=== PATIENT | male | born 1945 | race Caucasian/White ===

== ENCOUNTER 2017-10-23 08:46 | Inpatient (IN) | payer MEDICARE, OTHER ==
[2017-10-23] MEDS ORDERED: IPRATROPIUM 0.5 MG/2.5 ML NEBU INHALATION STA (09:10)
[2017-10-23] MEDS ORDERED: SODIUM CHLORIDE 0.9% 500 ML IV STA (09:10)
[2017-10-23] MEDS ORDERED: methylPREDNISolone SOD SUCCI 125 MG/2 ML VIAL IV STA (09:10)
[2017-10-23] MEDS ORDERED: ALBUTEROL NEBULIZED 2.5 MG/3 ML INHALATION STA (09:10)
--- NOTE | 2017-10-23 09:15 | ED ---
General Adult HPI - General Chief complaint: Shortness of Breath Stated complaint: Palpitations-sent by Dr Ogden Time Seen by Provider: 10/23/17 08:50 Source: patient, RN notes reviewed Mode of arrival: wheelchair Limitations: no limitations - History of Present Illness Initial comments: This is a 71-year-old male who presents emergency Department complaining of difficulty breathing. Patient states his been ongoing for 8 months. Patient states he went to see his deputy director of nursing today and the deputy director of nursing became concerned because his heart was racing at about 120 beats a minute he was having a hard time breathing and he was having some shakes. Patient was then sent to the emergency department. Patient states his breathing didn't feel any worse than it has for the last 8 months. Patient denies having had a fever. Patient denies a cough or sputum production. Patient denies any chest pain or palpitations. Patient denies any abdominal pain patient denies nausea vomiting diarrhea. Patient denies any calf pain or tenderness. Patient denies any leg swelling. Patient denies being lightheaded dizzy or having any near syncopal episode. - Related Data Home Medications Medication Instructions Recorded Confirmed Albuterol Inhaler [Ventolin Hfa 2 puff INHALATION RT-Q6H PRN 10/23/17 10/23/17 Inhaler] Aspirin 81 mg PO DAILY 10/23/17 10/23/17 Budesonide-Formot 160-4.5 Mcg 2 puff INHALATION RT-BID 10/23/17 10/23/17 [Symbicort 160-4.5 Mcg Inhaler] Cyanocobalamin (Vitamin B-12) 1,000 mcg PO DAILY 10/23/17 10/23/17 [Vitamin B-12] Ipratropium-Albuterol Nebulize 3 ml INHALATION RT-QID 10/23/17 10/23/17 [Duoneb 0.5 mg-3 mg/3 ml Soln] Multivitamins, Thera [Multivitamin 1 tab PO DAILY 10/23/17 10/23/17 (formulary)] [place]-3 Fatty Acids/Fish Oil [Fish 1 cap PO DAILY 10/23/17 10/23/17 Oil 1,000 mg Softgel] predniSONE 10 mg PO DAILY 10/23/17 10/23/17 Allergies Allergy/AdvReac Type Severity Reaction Status Date / Time No Known Allergies Allergy Verified 10/23/17 09:52 Review of Systems ROS Statement: Those systems with pertinent positive or pertinent negative responses have been documented in the HPI. ROS Other: All systems not noted in ROS Statement are negative. Past Medical History Past Medical History: COPD Additional Past Medical History / Comment(s): stg 4 emphysema History of Any Multi-Drug Resistant Organisms: None Reported Past Surgical History: Appendectomy Past Psychological History: No Psychological Hx Reported Smoking Status: Former smoker Past Alcohol Use History: Daily Past Drug Use History: None Reported - Past Family History Father Family Medical History: No Reported History Additional Family Medical History / Comment(s): Father was healthy and lived to be 92 yrs old. Mother Family Medical History: Dementia Additional Family Medical History / Comment(s): Mother had depression. She of dementia in her 60s. General Exam - General Exam Comments Initial Comments: GENERAL: Patient is well-developed and well-nourished. Patient is nontoxic and well- hydrated and is in mild distress. ENT: Neck is soft and supple. No significant lymphadenopathy is noted. Oropharynx is clear. Moist mucous membranes. Neck has full range of motion without eliciting any pain. EYES: The sclera were anicteric and conjunctiva were pink and moist. Extraocular movements were intact and pupils were equal round and reactive to light. Eyelids were unremarkable. PULMONARY: Diffusely diminished airflow CARDIOVASCULAR: This is a regular rate and rhythm at about 120 beats a minute ABDOMEN: Soft and nontender with normal bowel sounds. No palpable organomegaly was noted. There is no palpable pulsatile mass. SKIN: Skin is clear with no lesions or rashes and otherwise unremarkable. NEUROLOGIC: Patient is alert and oriented x3. Cranial nerves II through XII are grossly intact. Motor and sensory are also intact. Normal speech, volume and content. Symmetrical smile. MUSCULOSKELETAL: Normal extremities with adequate strength and full range of motion. No lower extremity swelling or edema. No calf tenderness. LYMPHATICS: No significant lymphadenopathy is noted PSYCHIATRIC: Normal psychiatric evaluation. Limitations: no limitations Course Vital Signs 10/23/17 10/23/17 10/23/17 08:50 09:17 09:20 Temperature 97.4 F L 100.1 F H Pulse Rate 134 H 119 H Respiratory 28 H Rate Blood Pressure 182/84 O2 Sat by Pulse 90 L Oximetry 10/23/17 10/23/17 10/23/17 09:31 09:46 09:56 Temperature Pulse Rate 109 H 117 H 115 H Respiratory Rate Blood Pressure O2 Sat by Pulse Oximetry 10/23/17 10/23/17 10/23/17 10:03 11:29 12:39 Temperature 97.5 F L Pulse Rate 119 H 110 H 111 H Respiratory 18 16 22 Rate Blood Pressure 193/74 162/75 146/68 O2 Sat by Pulse 94 L 98 95 Oximetry Medical Decision Making - Medical Decision Making EKG shows sinus tachycardia with occasional PVC at 107 bpm MD interval 160 QRS is 72 QT interval 350 QTC is 467 per patient's EKG shows no ST segment elevation or depression or T wave abnormalities are noted. Chest x-ray showed no acute abnormality. EKG of the chest showed no PE no obvious infiltrate. Patient received 3 breathing treatments and steroids while in the emergency department and that improved his symptoms. I spoke with Dr. Kauffman he agreed to admit the patient admitted the patient wrote admitting orders. I continue breathing treatments and steroids on the floor. I consult the deputy director of nursing. - Lab Data Result diagrams: 10/23/17 09:04 10/23/17 09:04 Lab Results 10/23/17 10/23/17 10/23/17 Range/Units 09:04 09:04 09:04 WBC 11.1 H (3.8-10.6) k/uL RBC 3.67 L (4.30-5.90) m/uL Hgb 11.3 L (13.0-17.5) gm/dL Hct 35.9 L (39.0-53.0) % MCV 97.9 (80.0-100.0) fL MCH 30.8 (25.0-35.0) pg MCHC 31.5 (31.0-37.0) g/dL RDW 13.3 (11.5-15.5) % Plt Count 358 (150-450) k/uL Neutrophils % 83 % Lymphocytes % 7 % Monocytes % 8 % Eosinophils % 0 % Basophils % 0 % Neutrophils # 9.2 H (1.3-7.7) k/uL Lymphocytes # 0.8 L (1.0-4.8) k/uL Monocytes # 0.9 (0-1.0) k/uL Eosinophils # 0.0 (0-0.7) k/uL Basophils # 0.0 (0-0.2) k/uL Hypochromasia Slight PT (9.0-12.0) sec INR (<1.2) APTT (22.0-30.0) sec D-Dimer (<0.60) mg/L FEU Sodium 141 (137-145) mmol/L Potassium 4.7 (3.5-5.1) mmol/L Chloride 102 (98-107) mmol/L Carbon Dioxide 23 (22-30) mmol/L Anion Gap 16 mmol/L BUN 12 (9-20) mg/dL Creatinine 0.75 (0.66-1.25) mg/dL Est GFR (CKD-EPI)AfAm >90 (>60 ml/min/1.73 sqM) Est GFR (CKD-EPI)NonAf >90 (>60 ml/min/1.73 sqM) Glucose 84 (74-99) mg/dL Lactic Ac Sepsis Rflx Plasma Lactic Acid Ignacio (0.7-2.0) mmol/L Calcium 10.0 (8.4-10.2) mg/dL Magnesium 1.9 (1.6-2.3) mg/dL Total Bilirubin 0.3 (0.2-1.3) mg/dL AST 44 (17-59) U/L ALT 24 (21-72) U/L Alkaline Phosphatase 51 (38-126) U/L Total Creatine Kinase 75 (55-170) U/L CK-MB (CK-2) 4.1 H* (0.0-2.4) ng/mL CK-MB (CK-2) Rel Index 5.5 Troponin I 0.024 (0.000-0.034) ng/mL Total Protein 6.9 (6.3-8.2) g/dL Albumin 4.5 (3.5-5.0) g/dL Urine Color Urine Appearance (Clear) Urine pH (5.0-8.0) Ur Specific [place] (1.001-1.035) Urine Protein (Negative) Urine Glucose (UA) (Negative) Urine Ketones (Negative) Urine Blood (Negative) Urine Nitrite (Negative) Urine Bilirubin (Negative) Urine Urobilinogen (<2.0) mg/dL Ur Leukocyte Esterase (Negative) 04/20/18 04/20/18 04/20/18 Range/Units 09:04 09:04 09:51 WBC (3.8-10.6) k/uL RBC (4.30-5.90) m/uL Hgb (13.0-17.5) gm/dL Hct (39.0-53.0) % MCV (80.0-100.0) fL MCH (25.0-35.0) pg MCHC (31.0-37.0) g/dL RDW (11.5-15.5) % Plt Count (150-450) k/uL Neutrophils % % Lymphocytes % % Monocytes % % Eosinophils % % Basophils % % Neutrophils # (1.3-7.7) k/uL Lymphocytes # (1.0-4.8) k/uL Monocytes # (0-1.0) k/uL Eosinophils # (0-0.7) k/uL Basophils # (0-0.2) k/uL Hypochromasia PT 9.7 (9.0-12.0) sec INR 1.0 (<1.2) APTT 19.8 L (22.0-30.0) sec D-Dimer 3.11 H (<0.60) mg/L FEU Sodium (137-145) mmol/L Potassium (3.5-5.1) mmol/L Chloride (98-107) mmol/L Carbon Dioxide (22-30) mmol/L Anion Gap mmol/L BUN (9-20) mg/dL Creatinine (0.66-1.25) mg/dL Est GFR (CKD-EPI)AfAm (>60 ml/min/1.73 sqM) Est GFR (CKD-EPI)NonAf (>60 ml/min/1.73 sqM) Glucose (74-99) mg/dL Lactic Ac Sepsis Rflx Y Plasma Lactic Acid Ignacio 4.1 H* (0.7-2.0) mmol/L Calcium (8.4-10.2) mg/dL Magnesium (1.6-2.3) mg/dL Total Bilirubin (0.2-1.3) mg/dL AST (17-59) U/L ALT (21-72) U/L Alkaline Phosphatase (38-126) U/L Total Creatine Kinase (55-170) U/L CK-MB (CK-2) (0.0-2.4) ng/mL CK-MB (CK-2) Rel Index Troponin I (0.000-0.034) ng/mL Total Protein (6.3-8.2) g/dL Albumin (3.5-5.0) g/dL Urine Color Urine Appearance (Clear) Urine pH (5.0-8.0) Ur Specific [place] (1.001-1.035) Urine Protein (Negative) Urine Glucose (UA) (Negative) Urine Ketones (Negative) Urine Blood (Negative) Urine Nitrite (Negative) Urine Bilirubin (Negative) Urine Urobilinogen (<2.0) mg/dL Ur Leukocyte Esterase (Negative) 10/23/17 Range/Units 10:51 WBC (3.8-10.6) k/uL RBC (4.30-5.90) m/uL Hgb (13.0-17.5) gm/dL Hct (39.0-53.0) % MCV (80.0-100.0) fL MCH (25.0-35.0) pg MCHC (31.0-37.0) g/dL RDW (11.5-15.5) % Plt Count (150-450) k/uL Neutrophils % % Lymphocytes % % Monocytes % % Eosinophils % % Basophils % % Neutrophils # (1.3-7.7) k/uL Lymphocytes # (1.0-4.8) k/uL Monocytes # (0-1.0) k/uL Eosinophils # (0-0.7) k/uL Basophils # (0-0.2) k/uL Hypochromasia PT (9.0-12.0) sec INR (<1.2) APTT (22.0-30.0) sec D-Dimer (<0.60) mg/L FEU Sodium (137-145) mmol/L Potassium (3.5-5.1) mmol/L Chloride (98-107) mmol/L Carbon Dioxide (22-30) mmol/L Anion Gap mmol/L BUN (9-20) mg/dL Creatinine (0.66-1.25) mg/dL Est GFR (CKD-EPI)AfAm (>60 ml/min/1.73 sqM) Est GFR (CKD-EPI)NonAf (>60 ml/min/1.73 sqM) Glucose (74-99) mg/dL Lactic Ac Sepsis Rflx Plasma Lactic Acid Ignacio (0.7-2.0) mmol/L Calcium (8.4-10.2) mg/dL Magnesium (1.6-2.3) mg/dL Total Bilirubin (0.2-1.3) mg/dL AST (17-59) U/L ALT (21-72) U/L Alkaline Phosphatase (38-126) U/L Total Creatine Kinase (55-170) U/L CK-MB (CK-2) (0.0-2.4) ng/mL CK-MB (CK-2) Rel Index Troponin I (0.000-0.034) ng/mL Total Protein (6.3-8.2) g/dL Albumin (3.5-5.0) g/dL Urine Color Light Yellow Urine Appearance Clear (Clear) Urine pH 7.0 (5.0-8.0) Ur Specific [place] 1.024 (1.001-1.035) Urine Protein Negative (Negative) Urine Glucose (UA) Negative (Negative) Urine Ketones Negative (Negative) Urine Blood Negative (Negative) Urine Nitrite Negative (Negative) Urine Bilirubin Negative (Negative) Urine Urobilinogen <2.0 (<2.0) mg/dL Ur Leukocyte Esterase Negative (Negative) Critical Care Time Critical Care Time: Yes Total Critical Care Time: 35 Disposition Clinical Impression: COPD exacerbation, Tracheobronchitis Disposition: ADMITTED IP TO THIS HOSP Is patient prescribed a controlled substance at d/c from ED?: No Time of Disposition: 11:00
[2017-10-23 09:27] LABS: Basophils % (A) 0 %; Eosinophils % (A) 0 %; HCT 35.9 % (39.0-53.0); HGB 11.3 gm/dL (13.0-17.5); Hypochromasia Slight; Lymphocytes # (A) 0.8 k/uL (1.0-4.8); Lymphocytes % (A) 7 %; MCH 30.8 pg (25.0-35.0); MCHC 31.5 g/dL (31.0-37.0); MCV 97.9 fL (80.0-100.0); Mean Platelet Volume 7.4; Monocytes # (A) 0.9 k/uL (0-1.0); Monocytes % (A) 8 %; Neutrophils # (A) 9.2 k/uL (1.3-7.7); Neutrophils % (A) 83 %; Platelet Count 358 k/uL (150-450); RBC 3.67 m/uL (4.30-5.90); RDW 13.3 % (11.5-15.5); WBC 11.1 k/uL (3.8-10.6)
[2017-10-23 09:35] LABS: ALT 24 U/L (21-72); AST 44 U/L (17-59); Albumin 4.5 g/dL (3.5-5.0); Alkaline Phosphatase 51 U/L (38-126); Anion Gap 16 mmol/L; Blood Urea Nitrogen 12 mg/dL (9-20); Carbon Dioxide 23 mmol/L (22-30); Chloride 102 mmol/L (98-107); Glucose 84 mg/dL (74-99); Magnesium 1.9 mg/dL (1.6-2.3); Potassium 4.7 mmol/L (3.5-5.1); Sodium 141 mmol/L (137-145); Total Bilirubin 0.3 mg/dL (0.2-1.3); Total Protein 6.9 g/dL (6.3-8.2)
--- NOTE | 2017-10-23 09:40 | XR ---
EXAMINATION TYPE: XR chest 1V portable DATE OF EXAM: 10/23/2017 COMPARISON: Chest x-ray February 12, 2017. HISTORY: History of COPD with difficulty in breathing. TECHNIQUE: Single frontal view of the chest is obtained. FINDINGS: There is background chronic emphysematous change with scattered areas of peripheral fibros is but no new suspicious focal air space opacity, pleural effusion, or pneumothorax seen. The cardia c silhouette size is within normal limits with atherosclerotic change in the aortic knob. The osseo us structures remain demineralized. IMPRESSION: Chronic emphysematous change without acute pulmonary process.
[2017-10-23 09:46] LABS: Prothrombin Time 9.7 sec (9.0-12.0)
[2017-10-23 09:52] LABS: D-Dimer 3.11 mg/L FEU (<0.60); Partial Thromboplastin Time 19.8 sec (22.0-30.0)
[2017-10-23] MEDS ORDERED: RX INFO: IV CONTRAST WAS GIVEN 1 EACH MISC MISCELLANE PRN (10:01)
[2017-10-23 10:04] LABS: Troponin I 0.024 ng/mL (0.000-0.034)
[2017-10-23 10:10] LABS: Creatine Kinase MB 4.1 ng/mL (0.0-2.4)
--- NOTE | 2017-10-23 10:39 | CT ---
EXAMINATION TYPE: CT chest angio for PE DATE OF EXAM: 10/23/2017 COMPARISON: NONE HISTORY: Patient complains of palpitations, shakiness, and difficulty breathing. CT DLP: 127.3 mGycm CONTRAST: CT chest with contrast and 3D reconstruction with MIP imaging is performed with IV Contrast, patient injected with 100 mL of Isovue 370. Contrast-enhanced CT of the chest was performed through the course of the pulmonary arteries with davey g and mediastinal window settings submitted. 3D reconstruction with MIP imaging was also performed. PULMONARY ARTERIES: The pulmonary arteries and their major tributaries are patent. I do not see stephani dence for sizable filling defect to suggest pulmonary embolic process. LUNGS: Moderate emphysematous changes seen. Pleural-based nodular density right upper lobe medially m easures 9.3 mm. Scattered areas of linear parenchymal scar. Hyperinflation compatible with COPD. MEDIASTINUM: Thoracic aorta is of normal caliber,however, evaluation is limited given timing of the contrast bolus. If there is concern for thoracic aortic pathology consider ARIANA. Correlate clinicall y . The heart is not enlarged. No evidence for mediastinal mass. No mediastinal lymph nodes greater than 1cm. HILAR STRUCTURES: No evidence for mass. No hilar lymph nodes greater than 1 cm. UPPER ABDOMEN: No significant abnormality is seen. IMPRESSION: 1. No evidence for Pulmonary embolism at this time. 2. Pleural-based nodular density right upper lobe medially is nonspecific. Follow-up study is recomme nded in 3-4 months. 3. Moderate emphysematous changes and hyperinflation compatible with COPD
[2017-10-23] MEDS ORDERED: IPRATROPIUM-ALBUTEROL 3 ML NEB INHALATION PRN (11:00)
[2017-10-23] MEDS ORDERED: LEVOFLOXACIN 750MG-D5W PMX 750 MG in DEXTROSE/WATER 1 150ML.BAG IVPB STA (11:06)
[2017-10-23 11:09] LABS: Appearance,Urine Clear (Clear); Bilirubin,Urine Negative (Negative); Blood,Urine Negative (Negative); Color,Urine Light Yellow; Glucose,Urine (UA) Negative (Negative); Ketones,Urine Negative (Negative); Leukocyte Esterase,Urine Negative (Negative); Nitrite,Urine Negative (Negative); Protein,Urine Negative (Negative); Specific Gravity,Urine 1.024 (1.001-1.035); Urobilinogen,Urine <2.0 mg/dL (<2.0)
--- NOTE | 2017-10-23 14:36 | P.CNPUL ---
History of Present Illness Consult date: 10/23/17 Reason for consult: dyspnea, COPD History of present illness: 71-year-old male patient with advanced COPD with a baseline FEV1 of 24% of predicted, and a total lung capacity of 127% of predicted and diffusion capacity of 23% of predicted consistent with severe advanced COPD. The patient has been followed up in our office. The patient has been maintained on Symbicort as maintenance in addition to her maintenance prednisone of 10 mg on a daily basis and oxygen 2 L/m 24 7. The patient has a portable concentrator. The patient came into the office today to be seen by Dr. Ogden. He was feeling progressively more short of breath and he was very tremulous and weak and he was having increased cough and some low-grade fever. He was having difficulty breathing and he was unable to speak full sentences. Immediately was transferred to the emergency department. D-dimer was slightly elevated and a CT angios the chest came back negative for any pulmonary embolism. There is a scar in the right apical area which needs to be monitored. Otherwise there is diffuse emphysema with upper lobe predominance and there is no mediastinal lymphadenopathy. The patient had a lactic acid level of 4.1. Cardiac and is a been negative. Influenza screen was negative. White cell count is not elevated. He was admitted for an acute COPD exacerbation treatment. He is known to have hemochromatosis. This is his first hospitalization for COPD complications. No edema in lower extremities. No history of cardiac disease or congestion heart failure Review of Systems Constitutional: Reports fatigue, Reports lethargy, Reports poor appetite, Reports weakness, Reports weight loss Eyes: denies blurred vision, denies bulging eye, denies decreased vision Ears: deny: decreased hearing, ear discharge, earache Ears, nose, mouth and throat: Denies headache, Denies sore throat Cardiovascular: Reports decreased exercise tolerance, Reports dyspnea on exertion, Reports rapid heart beat, Reports shortness of breath Respiratory: Reports cough, Reports cough with sputum, Reports dyspnea, Reports wheezing Gastrointestinal: Denies abdominal pain, Denies diarrhea, Denies nausea, Denies vomiting Genitourinary: Reports as per HPI Musculoskeletal: Denies myalgias Musculoskeletal: absent: ankle pain, ankle stiffness, ankle swelling Integumentary: Denies pruritus, Denies rash Neurological: Denies numbness, Denies weakness Psychiatric: Reports as per HPI, Reports sleep disturbances Endocrine: Reports fatigue, Reports weight change Past Medical History Past Medical History: Blood Disorder, COPD Additional Past Medical History / Comment(s): Advanced emphysema details discussed above, chronic hypoxic history failure, hemochromatosis and the patient has been followed up by Dr. Patel and the patient has undergone periodic phlebotomy. History of Any Multi-Drug Resistant Organisms: None Reported Past Surgical History: Appendectomy Past Anesthesia/Blood Transfusion Reactions: No Reported Reaction Smoking Status: Former smoker (The patient quit smoking approximately 9 months ago. He has more than [id number] smoking history. No alcoholism or no substance abuse.) - Past Family History Father Family Medical History: No Reported History Additional Family Medical History / Comment(s): Father was healthy and lived to be 92 yrs old. Mother Family Medical History: Dementia Additional Family Medical History / Comment(s): Mother had depression. She of dementia in her 60s. Medications and Allergies Home Medications Medication Instructions Recorded Confirmed Type Albuterol Inhaler [Ventolin Hfa 2 puff INHALATION RT-Q6H PRN 10/23/17 10/23/17 History Inhaler] Aspirin 81 mg PO DAILY 10/23/17 10/23/17 History Budesonide-Formot 160-4.5 Mcg 2 puff INHALATION RT-BID 10/23/17 10/23/17 History [Symbicort 160-4.5 Mcg Inhaler] Cyanocobalamin (Vitamin B-12) 1,000 mcg PO DAILY 10/23/17 10/23/17 History [Vitamin B-12] Ipratropium-Albuterol Nebulize 3 ml INHALATION RT-QID 10/23/17 10/23/17 History [Duoneb 0.5 mg-3 mg/3 ml Soln] Multivitamins, Thera [Multivitamin 1 tab PO DAILY 10/23/17 10/23/17 History (formulary)] [place]-3 Fatty Acids/Fish Oil [Fish 1 cap PO DAILY 10/23/17 10/23/17 History Oil 1,000 mg Softgel] predniSONE 10 mg PO DAILY 10/23/17 10/23/17 History Allergies Allergy/AdvReac Type Severity Reaction Status Date / Time No Known Allergies Allergy Verified 10/23/17 09:52 Physical Exam Vitals: Vital Signs Temp Pulse Resp BP Pulse Ox 10/23/17 13:31 22 10/23/17 13:22 98.7 F 10/23/17 12:39 97.5 F L 111 H 22 146/68 95 10/23/17 11:29 110 H 16 162/75 98 10/23/17 10:03 119 H 18 193/74 94 L 10/23/17 09:56 115 H 10/23/17 09:46 117 H 10/23/17 09:31 109 H 10/23/17 09:20 100.1 F H 10/23/17 09:17 119 H 10/23/17 08:50 97.4 F L 134 H 28 H 182/84 90 L Intake and Output 10/22/17 10/23/17 10/23/17 22:59 06:59 14:59 Other: Voiding Method Urinal Weight 48.081 kg The patient is a mild degree of respiratory distress even at rest. Looks to be very thin and cachectic with a BMI of 17.1. HEENT examination is grossly unremarkable. Mucous membranes are moist. No oral lesions. TMs and EACs are normal. Neck supple. Full range of motion. No adenopathy or thyromegaly. Cardiovascular examination reveals regular rhythm rate. S1-S2 normal. No S3-S4. No distinct murmur. Lungs reveal mostly diminished breath sounds. A few scattered mild rhonchi. There is diffuse extremity wheezes throughout the lung his bilaterally along with prolongation of expiratory phase of breathing. He has a barrel chest. No use of accessory muscles of breathing. Abdomen soft bowel sounds are heard. No masses or tenderness. Extremities are intact. No cyanosis clubbing. No edema. Skin without rash.Examination of the skin revealed no evidence of significant rashes, suspicious appearing nevi or other concerning lesions. Neurologic examination is nonfocal. The patient is awake and alert Results - Laboratory Findings CBC and BMP: 10/23/17 09:04 10/23/17 09:04 PT/INR, D-dimer PT 9.7 sec (9.0-12.0) 10/23/17 09:04 INR 1.0 (<1.2) 10/23/17 09:04 D-Dimer 3.11 mg/L FEU (<0.60) H 10/23/17 09:04 Abnormal lab findings: Abnormal Labs 10/23/17 10/23/17 10/23/17 09:04 09:04 09:04 WBC 11.1 H RBC 3.67 L Hgb 11.3 L Hct 35.9 L Neutrophils # 9.2 H Lymphocytes # 0.8 L APTT 19.8 L D-Dimer 3.11 H Plasma Lactic Acid Ignacio CK-MB (CK-2) 4.1 H* 10/23/17 09:04 WBC RBC Hgb Hct Neutrophils # Lymphocytes # APTT D-Dimer Plasma Lactic Acid Ignacio 4.1 H* CK-MB (CK-2) - Diagnostic Findings Chest x-ray: image reviewed CT scan - chest: image reviewed Assessment and Plan Plan: Assessment 1 acute exacerbation of COPD, with secondary shortness of breath. 2 severe COPD, steroid-dependent and patient has been taking 10 mg of prednisone on outpatient basis as maintenance 3 chronic hypoxic respiratory failure maintained on 2 L of oxygen by nasal cannula 4 cachexia with significant loss in total body muscle and fat mass and his current BMI 17.1 5 hemochromatosis 6 mild lactic acidosis 7 elevated d-dimer with a negative CT angios for pulmonary embolism. 8 limited scar in the right upper lobe, malignancy is doubtful Plan Influenza screen has been negative and the patient is currently afebrile for now. Monitor the fever pattern. We'll give this patient empiric antibiotic coverage with Levaquin. The patient will be placed on IV Solu-Medrol. The patient will be placed on DuoNeb nebulized treatments around the clock. The patient will be given heparin subcu for DVT prophylaxis. No need for BiPAP therapy at this point. Patient is an ex-smoker for now. Anticipate recovery within next 24-48 hours. Long-term prognosis poor based on presence of advanced COPD.
[2017-10-23] MEDS: methylPREDNISolone SOD SUCCI 125 MG/2 ML VIAL IV SCH ×3 (14:46→23:14)
[2017-10-23 15:38] VITALS: BMI 17.1
[2017-10-23] MEDS ORDERED: HEPARIN SODIUM,PORCINE 5,000 UNIT/ML 1 ML VIAL SQ SCH (16:00)
[2017-10-23] MEDS ORDERED: LORazepam 2 MG/ML INJ IV PRN ×3 (19:10)
[2017-10-23] MEDS: THIAMINE 100 MG TAB PO SCH (19:15)
[2017-10-23 20:51] LABS: Glucose,Whole Blood 210 mg/dL (75-99)
[2017-10-23] MEDS: INSULIN ASPART 100 UNIT/ML 1 ML 10 ML VIAL SQ SCH (21:34)
--- NOTE | 2017-10-23 23:14 | HP ---
HISTORY AND PHYSICAL DATE OF ADMISSION: 10/23/2017. DATE OF SERVICE: 10/23/2017 PRESENTING COMPLAINT: Short of breath. HISTORY OF PRESENTING COMPLAINT: This is a 71-year-old patient of Dr. Hidalgo and follows with release coordinator Dr. Ogden. Also has a history of COPD on home oxygen 2L. The patient has been short of breath for quite a while, but progressively getting more and more short of breath, wheezing, some cough, no edema, decreased appetite, tired, run down and runs a bit thin, admitted from Dr. Ogden's office for COPD exacerbation. No obvious fever. No sputum production, per se. REVIEW OF SYSTEMS: CONSTITUTIONAL: Weak, tired. HEENT: None. RESPIRATORY: As above. CARDIOVASCULAR: None. GASTROINTESTINAL: None. GENITOURINARY: None. MUSCULOSKELETAL: Wasting muscles. DERMATOLOGICAL: None. HEMATOLOGIC: None. LYMPHATIC: None. PSYCHIATRY: None. NEUROLOGICAL: None. PAST MEDICAL HISTORY: COPD on home oxygen. PAST SURGICAL HISTORY: Appendectomy. SOCIAL HISTORY: . Home oxygen 2L. Smoked for close to 63 years, stopped about 8 months ago. Drinks a vodka, beer, around 4-5 drinks a day. FAMILY HISTORY: Unremarkable. HOME MEDICATIONS: 1. Fish oil 1 capsule p.o. daily. 2. Multivitamin 1 tablet p.o. daily. 3. DuoNeb q.i.d. 4. Vitamin B12 1000 mcg a day. 5. Aspirin 81 mg a day. 6. Prednisone 10 mg a day. 7. Symbicort 160/4.5, 2 puffs b.i.d. 8. Ventolin HFA 2 puffs every 6 hours p.r.n. ALLERGIES: None. EXAMINATION: Temperature 97.2, pulse 115 respirations 28, blood pressure 156/82, pulse ox 95% on 3L. GENERAL APPEARANCE: Thin built, BMI 13.4, sitting up, tired appearing. EYES: Pupils equal. Conjunctivae normal. HEENT: External appearance of nose and ears normal. Oral cavity normal. NECK: JVD not raised. Mass not palpable. RESPIRATORY: Effort increased. LUNGS: Diminished breath sounds. Prolonged expiration. CARDIOVASCULAR: First and second sounds normal. No edema. ABDOMEN: Soft, nontender. Liver and spleen not palpable. LYMPHATIC: No lymph node palpable in neck or axillae. PSYCHIATRY: Alert and oriented x3. Mood and affect normal. MUSCULOSKELETAL: Diffuse wasting of the muscles. INVESTIGATIONS: White count 11.1, hemoglobin 11.3. Potassium 4.7, BUN and creatinine are normal. Influenza A and B negative. Chest x-ray: Hyperinflated, possibly from scar tissue. ASSESSMENT: 1. Acute severe chronic obstructive pulmonary disease exacerbation. The patient is steroid dependent. 2. Chronic hypoxic respiratory failure on home oxygen 2L from underlying chronic obstructive pulmonary disease. 3. Acute hypoxic respiratory failure. 4. Moderate protein-calorie malnutrition. The patient has bony prominences, muscle wasting. PLAN: Patient is put on nebulized bronchodilators, inhaled steroids and some Levaquin. Care was discussed with the patient. MMODL / IJN: [id number] /
[2017-10-23] MEDS: BUDESONIDE 1 MG/2 ML NEBU INHALATION SCH (23:41)
[2017-10-23] MEDS: IPRATROPIUM-ALBUTEROL 3 ML NEB INHALATION SCH ×2 (23:41→23:44)
[2017-10-24 01:09] LABS: Hemoglobin A1C 5.4 % (4.0-6.0)
[2017-10-24] MEDS: IPRATROPIUM-ALBUTEROL 3 ML NEB INHALATION SCH ×6 (03:42→23:47)
[2017-10-24] MEDS: methylPREDNISolone SOD SUCCI 125 MG/2 ML VIAL IV SCH ×2 (05:48→11:24)
[2017-10-24 07:21] LABS: Glucose,Whole Blood 130 mg/dL (75-99)
[2017-10-24] MEDS: INSULIN ASPART 100 UNIT/ML 1 ML 10 ML VIAL SQ SCH ×4 (07:22→22:06)
[2017-10-24] MEDS: ENOXAPARIN 40 MG/0.4 ML SYRINGE SQ SCH (08:34)
[2017-10-24] MEDS: BUDESONIDE 1 MG/2 ML NEBU INHALATION SCH ×2 (08:45→20:06)
[2017-10-24 11:09] LABS: Glucose,Whole Blood 180 mg/dL (75-99)
[2017-10-24] MEDS: THIAMINE 100 MG TAB PO SCH ×2 (11:24→16:11)
[2017-10-24] MEDS ORDERED: LEVOFLOXACIN 750MG-D5W PMX 750 MG in DEXTROSE/WATER 1 150ML.BAG IVPB SCH (12:00)
--- NOTE | 2017-10-24 14:59 | P.PN ---
Subjective Progress Note Date: 10/24/17 Principal diagnosis: Acute exacerbation of chronic obstructive pulmonary disease 71-year-old male patient with advanced COPD with a baseline FEV1 of 24% of predicted, and a total lung capacity of 127% of predicted and diffusion capacity of 23% of predicted consistent with severe advanced COPD. The patient has been followed up in our office. The patient has been maintained on Symbicort as maintenance in addition to her maintenance prednisone of 10 mg on a daily basis and oxygen 2 L/m 24 7. The patient has a portable concentrator. The patient came into the office today to be seen by Dr. Ogden. He was feeling progressively more short of breath and he was very tremulous and weak and he was having increased cough and some low-grade fever. He was having difficulty breathing and he was unable to speak full sentences. Immediately was transferred to the emergency department. D-dimer was slightly elevated and a CT angios the chest came back negative for any pulmonary embolism. There is a scar in the right apical area which needs to be monitored. Otherwise there is diffuse emphysema with upper lobe predominance and there is no mediastinal lymphadenopathy. The patient had a lactic acid level of 4.1. Cardiac and is a been negative. Influenza screen was negative. White cell count is not elevated. He was admitted for an acute COPD exacerbation treatment. He is known to have hemochromatosis. This is his first hospitalization for COPD complications. No edema in lower extremities. No history of cardiac disease or congestion heart failure The patient is seen again today 10/24/2017 in follow-up on the regular medical floor. He is awake and alert in no acute distress. He is breathing easier today as compared to yesterday but still not quite back to his baseline. He remains quite tremorous and weak. Appetite is poor. He has been maintaining good O2 saturations in the mid 90s on 2 L/m per nasal cannula. She's been afebrile. Slightly tachycardic. Slightly tachypneic. The cultures reveal no growth to date. He is continued on bronchodilators and IV Solu-Medrol. Objective - Vital Signs Vital signs: Vital Signs Temp 96.5 F L 10/24/17 14:35 Pulse 118 H 10/24/17 14:35 Resp 24 10/24/17 14:35 BP 146/77 10/24/17 14:35 Pulse Ox 96 04/21/18 14:35 Intake & Output 10/23/17 10/24/17 10/24/17 18:59 06:59 18:59 Intake Total 250 Output Total 400 Balance -150 Weight 48.081 kg 48.081 kg Intake: Oral 250 Output: Urine 400 Other: Voiding Method Urinal Urinal # Voids 1 1 2 - Exam The patient is a mild degree of respiratory distress even at rest. Looks to be very thin and cachectic with a BMI of 17.1. HEENT examination is grossly unremarkable. Mucous membranes are moist. No oral lesions. TMs and EACs are normal. Neck supple. Full range of motion. No adenopathy or thyromegaly. Cardiovascular examination reveals regular rhythm rate. S1-S2 normal. No S3-S4. No distinct murmur. Lungs reveal mostly diminished breath sounds. A few scattered mild rhonchi. There is diffuse extremity wheezes throughout the lung his bilaterally along with prolongation of expiratory phase of breathing. He has a barrel chest. No use of accessory muscles of breathing. Abdomen soft bowel sounds are heard. No masses or tenderness. Extremities are intact. No cyanosis clubbing. No edema. Skin without rash.Examination of the skin revealed no evidence of significant rashes, suspicious appearing nevi or other concerning lesions. Neurologic examination is nonfocal. The patient is awake and alert - Labs CBC & Chem 7: 10/23/17 09:04 10/23/17 09:04 Labs: Abnormal Lab Results - Last 24 Hours (Table) 10/23/17 10/24/17 10/24/17 Range/Units 20:44 07:11 11:04 POC Glucose (mg/dL) 210 H 130 H 180 H (75-99) mg/dL Microbiology - Last 24 Hours (Table) 10/23/17 09:04 Blood Culture - Preliminary Blood No Growth after 24 hours Assessment and Plan Assessment: Impression: #1 Acute hypoxic respiratory failure secondary to an acute exacerbation of chronic obstructive pulmonary disease. #2 Severe oxygen dependent, steroid dependent chronic obstructive pulmonary disease Gold stage IV with FEV1 value 23% of predicted. #3 Anorexia/cachexia syndrome with significant total body muscle and Mass loss current BMI 17.1. #4 Hemachromatosis. #5 Limited scar in the right upper lobe, malignancy is doubtful. #6 Elevated d-dimer. Computed tomography scan was negative for pulmonary embolism. Plan: The patient was seen and evaluated by Dr. Wilson. The patient is improved today as compared to yesterday. We'll continue his current treatment plan. We will increase his activity as tolerated. We'll continue to follow and make further recommendations based on his clinical status. I, the cosigning physician, performed a history & physical examination of the patient. Lungs sounds with bilateral wheezing, few scattered rhonchi, diminished. Maintaining good O2 saturations in the 90s on liters per minute per nasal cannula. I discussed the assessment and plan of care with my nurse practitioner, Clarisa Hammond. I attest to the above note as dictated by her.
[2017-10-24] MEDS: ASPIRIN 81 MG PO SCH (16:11)
[2017-10-24] MEDS: MULTIVITAMINS, THERA 1 EACH TAB PO SCH (16:11)
[2017-10-24] MEDS: CYANOCOBALAMIN 500 MCG TAB PO SCH (16:11)
--- NOTE | 2017-10-24 16:41 | PN ---
PROGRESS NOTE DATE OF SERVICE: 10/24/17. PRESENTING COMPLAINT: Short of breath. INTERVAL HISTORY: Patient admitted with COPD exacerbation. No sputum production. Breathing is better. Some wheezing is present. Did tolerate a diet. Sitting at the edge of the bed. REVIEW OF SYSTEMS: Done for constitutional, cardiovascular, GI, pulmonary; relevant findings as above. CURRENT MEDICATIONS: Reviewed include DuoNeb, IV Solu-Medrol. PHYSICAL EXAMINATION: Temperature 96.5, pulse 118, respiratory 24, blood pressure 140/77, pulse ox 96% on 3 L. GENERAL APPEARANCE: Sitting on the edge of bed, tired. EYES: Pupils equal. Conjunctivae normal. HEENT: External appearance of nose and ears normal. Oral cavity normal. NECK: JVD not raised. Mass not palpable. RESPIRATORY: Effort increased. Lungs decreased breath sounds. Prolonged expiration. CARDIOVASCULAR: First and second sounds, no edema. ABDOMEN: Soft, nontender. Liver and spleen not palpable. PSYCHIATRY: Alert and oriented x3. Mood and affect slightly anxious-appearing. INVESTIGATIONS: Accu-Cheks are noted. Influenza A and B negative. ASSESSMENT: 1. Acute severe chronic obstructive pulmonary disease exacerbation, steroid dependent. 2. Chronic hypoxic respiratory failure on home oxygen 2 L from underlying chronic obstructive pulmonary disease. 3. Acute hypoxic respiratory failure. 4. Moderate protein-calorie malnutrition. PLAN: Continue current medication and treatment plan. Will cut back on the steroids. MMODL / IJN: [id number] /
[2017-10-24 17:27] LABS: Glucose,Whole Blood 187 mg/dL (75-99)
[2017-10-24] MEDS: SYMBICORT 160-4.5 MCG INHALER INHALATION SCH (20:07)
[2017-10-24 21:28] LABS: Glucose,Whole Blood 179 mg/dL (75-99)
[2017-10-24] MEDS: methylPREDNISolone SOD SUCCI 40 MG/ML 1 ML VIAL IV SCH (22:06)
[2017-10-25] MEDS: IPRATROPIUM-ALBUTEROL 3 ML NEB INHALATION SCH ×3 (03:49→11:58)
[2017-10-25] MEDS: methylPREDNISolone SOD SUCCI 40 MG/ML 1 ML VIAL IV SCH ×2 (04:29→12:38)
[2017-10-25 06:11] VITALS: BP 138/71; RESP 20; TEMP 98.3
[2017-10-25] MEDS: ENOXAPARIN 40 MG/0.4 ML SYRINGE SQ SCH (07:15)
[2017-10-25] MEDS: CYANOCOBALAMIN 500 MCG TAB PO SCH (07:15)
[2017-10-25] MEDS: ASPIRIN 81 MG PO SCH (07:15)
[2017-10-25 07:38] LABS: Glucose,Whole Blood 138 mg/dL (75-99)
[2017-10-25] MEDS: INSULIN ASPART 100 UNIT/ML 1 ML 10 ML VIAL SQ SCH ×2 (08:12→12:38)
[2017-10-25] MEDS: SYMBICORT 160-4.5 MCG INHALER INHALATION SCH (08:31)
[2017-10-25 08:45] VITALS: PULSE 104
[2017-10-25] MEDS: BUDESONIDE 1 MG/2 ML NEBU INHALATION SCH (10:57)
[2017-10-25] MEDS ORDERED: LEVOFLOXACIN 750 MG TAB PO SCH ×2 (12:00→13:13)
[2017-10-25 12:30] LABS: Glucose,Whole Blood 158 mg/dL (75-99)
[2017-10-25] MEDS: THIAMINE 100 MG TAB PO SCH (12:38)
[2017-10-25] MEDS: MULTIVITAMINS, THERA 1 EACH TAB PO SCH (12:38)
--- NOTE | 2017-10-25 14:52 | P.PN ---
Subjective Progress Note Date: 10/25/17 On today's evaluation, the patient is looking well and he is not having any major stroke difficulties anything is back to his baseline symptoms of COPD exacerbation. No tremors. No altered mentation is no chest pain. No cough or sputum production. He received a combination of bronchodilators and steroids and he is very much optimize for now. I think is related to discharge home to be followed up on outpatient basis and he would need a prednisone burst taper. Objective - Vital Signs Vital signs: Vital Signs Temp 98.3 F 10/25/17 05:45 Pulse 104 H 10/25/17 08:44 Resp 20 10/25/17 05:45 BP 138/71 10/25/17 05:45 Pulse Ox 95 10/25/17 05:45 Intake & Output 10/24/17 10/25/17 10/25/17 18:59 06:59 18:59 Intake Total 240 Output Total 1400 Balance -1400 240 Weight 48.081 kg Intake: Oral 240 Output: Urine 1400 Other: Voiding Method Urinal # Voids 2 - Exam Gen. appearance, comfortable cachectic weak Head exam was generally normal. There was no scleral icterus or corneal arcus. Mucous membranes were moist. Neck was supple and without jugular venous distension, thyromegaly, or carotid bruits. Carotids were easily palpable bilaterally. There was no adenopathy. Lungs sounds are diminished and the patient has a barrel chest with marked diminished breath sounds and diffuse expiratory wheezes throughout the lung his bilaterally Cardiac exam revealed the PMI to be normally situated and sized. The rhythm was regular and no extrasystoles were noted during several minutes of auscultation. The first and second heart sounds were normal and physiologic splitting of the second heart sound was noted. There were no murmurs, rubs, clicks, or gallops., Overall heart sounds are distant Abdominal exam revealed normal bowel sounds. The abdomen was soft, non-tender, and without masses, organomegaly, or appreciable enlargement of the abdominal aorta. Examination of the extremities revealed easily palpable radial, femoral and pedal pulses. There was no cyanosis, clubbing or edema. Examination of the skin revealed no evidence of significant rashes, suspicious appearing nevi or other concerning lesions. Neurologic the patient is awake and alert and there is no focal neurological deficit. - Labs CBC & Chem 7: 10/23/17 09:04 10/23/17 09:04 Labs: Abnormal Lab Results - Last 24 Hours (Table) 10/24/17 10/24/17 10/25/17 Range/Units 17:24 21:26 07:19 POC Glucose (mg/dL) 187 H 179 H 138 H (75-99) mg/dL 10/25/17 Range/Units 11:55 POC Glucose (mg/dL) 158 H (75-99) mg/dL Microbiology - Last 24 Hours (Table) 10/23/17 09:04 Blood Culture - Preliminary Blood No Growth after 48 hours Assessment and Plan Plan: Assessment 1 acute exacerbation of COPD, with secondary shortness of breath. 2 severe COPD, steroid-dependent and patient has been taking 10 mg of prednisone on outpatient basis as maintenance 3 chronic hypoxic respiratory failure maintained on 2 L of oxygen by nasal cannula 4 cachexia with significant loss in total body muscle and fat mass and his current BMI 17.1 5 hemochromatosis 6 mild lactic acidosis 7 elevated d-dimer with a negative CT angios for pulmonary embolism. 8 limited scar in the right upper lobe, malignancy is doubtful Plan Discharge this patient home as the patient has recovered from his acute COPD exacerbation on a prednisone burst taper to be followed up in our office within a week's time.
--- NOTE | 2017-10-25 22:16 | DS ---
DISCHARGE SUMMARY DATE OF ADMISSION: 10/23/2017. DATE OF DISCHARGE: 10/25/2017. FINAL DIAGNOSES: 1. Acute severe chronic obstructive pulmonary disease exacerbation in a steroid- dependent patient. 2. Chronic hypoxic respiratory failure, on home oxygen, 2 L, from underlying chronic obstructive pulmonary disease. 3. Acute hypoxic respiratory failure from chronic obstructive pulmonary disease exacerbation. 4. Moderate protein-calorie malnutrition. 5. Hemochromatosis. 6. Moderate protein-calorie malnutrition with a body mass index of 17.5, from decreased oral intake next. CONSULTATIONS: Dr. Wilson. HOSPITAL COURSE: This patient has advanced COPD, admitted by Dr. Ogden for COPD exacerbation. Feeling better after getting bronchodilators and steroids. Chest CT showed chronic changes; no PE. The patient doing relatively better by the time of discharge. EXAMINATION: Lungs decreased breath sounds. Cardiovascular, first and second heart sounds normal. DISCHARGE MEDICATIONS: 1. Ventolin HFA 2 puffs every 6 hours p.r.n. 2. Aspirin 81 mg a day. 3. Symbicort 160/4.5, 2 puffs b.i.d. 4. B12, 1000 mcg a day. 5. DuoNeb q.i.d. 6. Multivitamin 1 tab p.o. daily. 7. Fish oil 1 capsule p.o. daily. 8. Prednisone taper. 9. Levaquin 750 mg p.o. daily. Once the prednisone taper is done patient can go back to his maintenance dose steroid prednisone 10 mg a day. FOLLOWUP: 1. Follow up with Dr. Hidalgo in 3 days. 2. Follow up with Dr. Ogden in 3 days. 3. Home oxygen to continue. MMODL / IJN: [id number] /
== END 2017-10-25 13:56 | disposition home or self-care (01) | DRG 190 ==
LOC: EC 08:46 → 4MS4W 11:01
PROVIDERS: ADMIT Hospitalist; ATTEND Hospitalist
DX: J44.1 Chronic obstructive pulmonary disease with (acute) exacerbation (principal); J96.21 Acute and chronic respiratory failure with hypoxia; E44.0 Moderate protein-calorie malnutrition; E87.2 Acidosis; R64 Cachexia; Z68.1 Body mass index [BMI] 19.9 or less, adult; E83.119 Hemochromatosis, unspecified; I49.3 Ventricular premature depolarization; Z79.51 Long term (current) use of inhaled steroids; Z79.52 Long term (current) use of systemic steroids; Z79.82 Long term (current) use of aspirin; Z81.8 Family history of other mental and behavioral disorders; Z87.891 Personal history of nicotine dependence; Z99.81 Dependence on supplemental oxygen
CPT/HCPCS: 36415; 71045; 71275; 80053; 81003; 82550; 82553; 83036; 83605; 83735; 84484; 85025; 85379; 85610; 85730; 87040; 87502; 93005; 94640; 94644; 94760; 96361; 96365; 96375; 99291

== ENCOUNTER 2017-11-05 13:39 | Emergency (ER) | payer MEDICARE, OTHER ==
[2017-11-05] MEDS ORDERED: DIPH,PERTUS(ACELL)TETVAC-LF 0.5 ML VIAL IM ONE (14:12)
--- NOTE | 2017-11-05 14:12 | ED ---
Fall HPI - General Chief Complaint: Fall Stated Complaint: Fall Time Seen by Provider: 11/05/17 13:57 Source: patient, EMS Mode of arrival: EMS - History of Present Illness Initial Comments: 71-year-old male presenting after a mechanical fall that occurred yesterday. Patient states the dog pulled him forward when he fell down 2 steps landing on his left side and striking his head and the hard surface of the floor. He denies any anticoagulation use or LOC. Patient states EMS came yesterday but he refused treatment. His states today he is having worsening left arm, left lateral chest, and left hip pain. He has been able to ambulate but only with assistance. Patient denies requiring more than his home dose of 3 L of oxygen. Denies worsening shortness of breath compared to his baseline. Patient denies any presyncopal symptom prior to fall. States his tetanus is not up-to- date. - Related Data Home Medications Medication Instructions Recorded Confirmed Albuterol Inhaler [Ventolin Hfa 2 puff INHALATION RT-Q6H PRN 10/23/17 11/05/17 Inhaler] Aspirin 81 mg PO DAILY 10/23/17 11/05/17 Budesonide-Formot 160-4.5 Mcg 2 puff INHALATION RT-BID 10/23/17 11/05/17 [Symbicort 160-4.5 Mcg Inhaler] Cyanocobalamin (Vitamin B-12) 1,000 mcg PO DAILY 10/23/17 11/05/17 [Vitamin B-12] Ipratropium-Albuterol Nebulize 3 ml INHALATION RT-QID 10/23/17 11/05/17 [Duoneb 0.5 mg-3 mg/3 ml Soln] Multivitamins, Thera [Multivitamin 1 tab PO DAILY 10/23/17 11/05/17 (formulary)] [place]-3 Fatty Acids/Fish Oil [Fish 1 cap PO DAILY 10/23/17 11/05/17 Oil 1,000 mg Softgel] Magnesium Salicyate 580mg 1 tab PO BID PRN 11/05/17 11/05/17 Previous Rx's Medication Instructions Recorded predniSONE 10 mg PO DAILY #30 tab 10/25/17 HYDROcodone/APAP 5-325MG [[place] 1 - 2 tab PO Q6HR PRN #15 tab 05/03/18 5-325] Ibuprofen [Motrin] 600 mg PO Q6HR PRN #20 tab 11/05/17 Allergies Allergy/AdvReac Type Severity Reaction Status Date / Time No Known Allergies Allergy Verified 11/05/17 14:00 Review of Systems ROS Statement: Those systems with pertinent positive or pertinent negative responses have been documented in the HPI. Review of Systems Constitutional: Denies fever, chills Eyes: Denies change in vision, Denies pain Ears, nose, mouth, throat: Denies headaches, Denies sore throat Cardiovascular: Denies chest pain. Denies palpitations Respiratory: Denies shortness of breath, Denies cough Gastrointestinal: Denies abdominal pain. Denies nausea, vomiting, diarrhea. Genitourinary: Denies hematuria, Denies infections Musculoskeletal: Positive left arm pain, left rib pain, and left hip pain. Integumentary: Denies rash Neurological: Denies headache, focal weakness, focal numbness Psychiatric: Denies anxiety, Denies depression Hematologic/Lymphatic: Denies easy bleeding or bruising ROS Other: All systems not noted in ROS Statement are negative. Past Medical History Past Medical History: COPD Additional Past Medical History / Comment(s): stg 4 emphysema History of Any Multi-Drug Resistant Organisms: None Reported Past Surgical History: Appendectomy Past Anesthesia/Blood Transfusion Reactions: No Reported Reaction Past Psychological History: No Psychological Hx Reported Smoking Status: Former smoker Past Alcohol Use History: Daily Past Drug Use History: None Reported - Past Family History Father Family Medical History: No Reported History Additional Family Medical History / Comment(s): Father was healthy and lived to be 92 yrs old. Mother Family Medical History: Dementia Additional Family Medical History / Comment(s): Mother had depression. She of dementia in her 60s. General Exam - General Exam Comments Initial Comments: General: Awake, alert, No acute Distress HENT: Normocephalic. Atraumatic. No Olguin's sign. No hemotympanum bilaterally. Dried blood in right nares. No septal hematoma. Eyes: PERRL. EOMI. No scleral icterus. No injected conjunctiva Neck: Full ROM. No midline cervical spine tenderness or paraspinal tenderness. Chest/Lungs: Diffusely diminished breath sounds with diffuse expiratory wheezes. Tachypnea. Cardiac: Sinus tachycardia. No murmurs or rubs. 2+ DP and radial pulses. 1+ pitting edema to bilateral feet up to ankle. Abdomen/GI: Soft, nontender, nondistended. No rebound, guarding, or rigidity. No bruising. Musculoskeletal: . No midline cervical, thoracic, or lumbar spine tenderness. Full ROM of left shoulder, elbow, and wrist. No scaphoid tenderness. C5-T1 strength and sensation intact. Skin: Left superficial skin tearing to left elbow with controlled bleeding. Neurologic: A/Ox3, no weakness, no sensory deficit, no abnormal gait, no coordination deficit Limitations: no limitations Course Vital Signs 11/05/17 11/05/17 11/05/17 13:44 14:48 15:59 Temperature 97.9 F Pulse Rate 106 H 100 91 Respiratory 22 18 18 Rate Blood Pressure 192/88 170/80 193/81 O2 Sat by Pulse 89 L 98 99 Oximetry Medical Decision Making - Medical Decision Making 31-year-old male presenting after mechanical fall. Initial exam the patient is awake, alert, no acute distress. He is tachycardic and mildly hypoxic states this is his baseline. Patient denies any presyncopal symptoms prior to fall. 1642 Patient found to have a nondisplaced fourth rib fracture. All other imaging is negative. Spoke with Dr. Ogden, who states the patient can be discharged home with pain management. Discussed with family who is agreeable to plan on following up next week. His vitals improved while in the department. At this time no further emergent workup is indicated. Patient is stable for discharge home. - Lab Data Result diagrams: 11/05/17 14:35 11/05/17 14:35 Lab Results 11/05/17 11/05/17 11/05/17 Range/Units 14:35 14:35 14:35 WBC 11.4 H (3.8-10.6) k/uL RBC 3.63 L (4.30-5.90) m/uL Hgb 11.1 L (13.0-17.5) gm/dL Hct 33.7 L (39.0-53.0) % MCV 93.0 (80.0-100.0) fL MCH 30.6 (25.0-35.0) pg MCHC 32.8 (31.0-37.0) g/dL RDW 13.9 (11.5-15.5) % Plt Count 226 (150-450) k/uL Neutrophils % 84 % Lymphocytes % 7 % Monocytes % 7 % Eosinophils % 0 % Basophils % 0 % Neutrophils # 9.6 H (1.3-7.7) k/uL Lymphocytes # 0.8 L (1.0-4.8) k/uL Monocytes # 0.8 (0-1.0) k/uL Eosinophils # 0.0 (0-0.7) k/uL Basophils # 0.0 (0-0.2) k/uL Sodium 133 L (137-145) mmol/L Potassium 4.5 (3.5-5.1) mmol/L Chloride 95 L (98-107) mmol/L Carbon Dioxide 27 (22-30) mmol/L Anion Gap 11 mmol/L BUN 13 (9-20) mg/dL Creatinine 0.63 L (0.66-1.25) mg/dL Est GFR (CKD-EPI)AfAm >90 (>60 ml/min/1.73 sqM) Est GFR (CKD-EPI)NonAf >90 (>60 ml/min/1.73 sqM) Glucose 96 (74-99) mg/dL Calcium 9.4 (8.4-10.2) mg/dL Troponin I (0.000-0.034) ng/mL Urine Color Urine Appearance (Clear) Urine pH (5.0-8.0) Ur Specific [place] (1.001-1.035) Urine Protein (Negative) Urine Glucose (UA) (Negative) Urine Ketones (Negative) Urine Blood (Negative) Urine Nitrite (Negative) Urine Bilirubin (Negative) Urine Urobilinogen (<2.0) mg/dL Ur Leukocyte Esterase (Negative) Blood Type A Positive Blood Type Recheck No 11/05/17 11/05/17 Range/Units 14:35 15:51 WBC (3.8-10.6) k/uL RBC (4.30-5.90) m/uL Hgb (13.0-17.5) gm/dL Hct (39.0-53.0) % MCV (80.0-100.0) fL MCH (25.0-35.0) pg MCHC (31.0-37.0) g/dL RDW (11.5-15.5) % Plt Count (150-450) k/uL Neutrophils % % Lymphocytes % % Monocytes % % Eosinophils % % Basophils % % Neutrophils # (1.3-7.7) k/uL Lymphocytes # (1.0-4.8) k/uL Monocytes # (0-1.0) k/uL Eosinophils # (0-0.7) k/uL Basophils # (0-0.2) k/uL Sodium (137-145) mmol/L Potassium (3.5-5.1) mmol/L Chloride (98-107) mmol/L Carbon Dioxide (22-30) mmol/L Anion Gap mmol/L BUN (9-20) mg/dL Creatinine (0.66-1.25) mg/dL Est GFR (CKD-EPI)AfAm (>60 ml/min/1.73 sqM) Est GFR (CKD-EPI)NonAf (>60 ml/min/1.73 sqM) Glucose (74-99) mg/dL Calcium (8.4-10.2) mg/dL Troponin I 0.026 (0.000-0.034) ng/mL Urine Color Yellow Urine Appearance Clear (Clear) Urine pH 6.0 (5.0-8.0) Ur Specific [place] 1.008 (1.001-1.035) Urine Protein Negative (Negative) Urine Glucose (UA) Negative (Negative) Urine Ketones 2+ H (Negative) Urine Blood Negative (Negative) Urine Nitrite Negative (Negative) Urine Bilirubin Negative (Negative) Urine Urobilinogen <2.0 (<2.0) mg/dL Ur Leukocyte Esterase Negative (Negative) Blood Type Blood Type Recheck - EKG Data EKG shows normal: sinus rhythm Rate: normal EKG Comments: EKG shows normal sinus rhythm at a rate of 96 bpm. Similar to EKG from 10/23/17 Disposition Clinical Impression: Fall, Rib fracture Disposition: HOME SELF-CARE Condition: Good Prescriptions: HYDROcodone/APAP 5-325MG [[place] 5-325] 1 - 2 tab PO Q6HR PRN #15 tab PRN Reason: Pain Ibuprofen [Motrin] 600 mg PO Q6HR PRN #20 tab PRN Reason: Pain Is patient prescribed a controlled substance at d/c from ED?: Yes If prescribed controlled substance>3 days was MAPS reviewed?: Yes Referrals: Gal Hidalgo DO [Primary Care Provider] - 1-2 days
[2017-11-05 14:57] LABS: Basophils % (A) 0 %; Eosinophils % (A) 0 %; HCT 33.7 % (39.0-53.0); HGB 11.1 gm/dL (13.0-17.5); Lymphocytes # (A) 0.8 k/uL (1.0-4.8); Lymphocytes % (A) 7 %; MCH 30.6 pg (25.0-35.0); MCHC 32.8 g/dL (31.0-37.0); Mean Platelet Volume 7.1; Monocytes # (A) 0.8 k/uL (0-1.0); Monocytes % (A) 7 %; Neutrophils # (A) 9.6 k/uL (1.3-7.7); Neutrophils % (A) 84 %; Platelet Count 226 k/uL (150-450); RBC 3.63 m/uL (4.30-5.90); RDW 13.9 % (11.5-15.5); WBC 11.4 k/uL (3.8-10.6)
[2017-11-05 15:08] LABS: Anion Gap 11 mmol/L; Blood Urea Nitrogen 13 mg/dL (9-20); Calcium 9.4 mg/dL (8.4-10.2); Carbon Dioxide 27 mmol/L (22-30); Chloride 95 mmol/L (98-107); Glucose 96 mg/dL (74-99); Potassium 4.5 mmol/L (3.5-5.1); Sodium 133 mmol/L (137-145)
--- NOTE | 2017-11-05 15:24 | CT ---
EXAMINATION TYPE: CT brain miriam simon DATE OF EXAM: 11/05/2017 COMPARISON: NONE HISTORY: Patient complains of left side body pain post fall yesterday. CT DLP: 1042.5 mGycm Automated exposure control for dose reduction was used. TECHNIQUE: CT scan of the head and cervical spine are performed without contrast. FINDINGS: Periventricular low attenuation is nonspecific but suggestive of remote microvascular isc hemia. There is moderate generalized degenerative change. No acute intracranial hemorrhage or mass ef fect. Calvarium intact. Trace amount of fluid in the right mastoid air cells. Multilevel degenerative disc disease and facet arthropathy and uncovertebral joint hypertrophy noted with most marked findings at C5-C6. Multilevel foraminal encroachment. Assessment spinal canal limited due to technique. Calcifications of the carotid arteries are noted pa rticularly on the right. Emphysematous changes involving the lung apices are noted. IMPRESSION: 1. There is no acute fracture or dislocation evident in the cervical spine. Multilevel degenerative d isc disease and foraminal encroachment suggested. Correlate with MRI. 2. No acute intracranial hemorrhage, mass effect, or midline shift is seen. Degenerative change and n onspecific white matter findings most typical remote microvascular ischemia.
--- NOTE | 2017-11-05 15:58 | XR ---
EXAMINATION TYPE: XR humerus LT DATE OF EXAM: 11/05/2017 CLINICAL HISTORY: Fall with left upper extremity pain TECHNIQUE: Two views of the left humerus are obtained. COMPARISON: None. FINDINGS: There is generalized osseous demineralization. There is no acute fracture or dislocation s een in the left humerus. The left shoulder and elbow joints appear within normal limits. The overly ing soft tissue appears within normal limits. Mild acromio clavicular arthropathy is seen. IMPRESSION: No acute fracture or dislocation is evident in the left humerus.
--- NOTE | 2017-11-05 15:59 | XR ---
Left elbow HISTORY: Trauma and pain 3 views of the left elbow There is no evident joint effusion. Bone mineralization mildly reduced. Alignment and joint spaces ar e maintained. Small ossific density noted on the frontal and oblique view within the joint is well-co rticated and not felt likely to be acute. Questionable lucency noted at the radial head. There is sof t tissue swelling. IMPRESSION: No dislocation. Consider radial head view as indicated if occult fracture is suspected.
--- NOTE | 2017-11-05 16:00 | XR ---
EXAMINATION TYPE: XR chest 2V DATE OF EXAM: 11/05/2017 COMPARISON: Prior chest CT 10/23/2017 HISTORY: Tachypnea, trauma and pain TECHNIQUE: Frontal and lateral views of the chest are obtained. FINDINGS: There is no focal air space opacity, pleural effusion, or pneumothorax seen. The cardiac silhouette size is within normal limits. The osseous structures are intact. Prominent lung volumes compatible with patient's underlying emphysema. The aorta is dense. IMPRESSION: No acute cardiopulmonary process.
--- NOTE | 2017-11-05 16:02 | XR ---
EXAMINATION TYPE: XR Hip LT and AP Pelvis DATE OF EXAM: 11/05/2017 COMPARISON: NONE HISTORY: Trauma and pain TECHNIQUE: A single AP view of the pelvis is obtained. Two views of the left hip are obtained. FINDINGS: There is no acute fracture/dislocation evident in the pelvis. The hip and sacroiliac join ts appear symmetric and unremarkable. The overlying soft tissue appears unremarkable. Two views of left hip show no acute fracture or dislocation. No focal lytic or sclerotic lesion seen in the proximal left femur. The overlying soft tissue is unremarkable. Vascular calcifications are noted incidentally. Degenerative disc changes in the visualized spine. IMPRESSION: There is no acute fracture or dislocation in the pelvis or left hip.
[2017-11-05 16:04] LABS: Appearance,Urine Clear (Clear); Bilirubin,Urine Negative (Negative); Blood,Urine Negative (Negative); Color,Urine Yellow; Glucose,Urine (UA) Negative (Negative); Ketones,Urine 2+ (Negative); Leukocyte Esterase,Urine Negative (Negative); Nitrite,Urine Negative (Negative); Protein,Urine Negative (Negative); Specific Gravity,Urine 1.008 (1.001-1.035); Urobilinogen,Urine <2.0 mg/dL (<2.0)
--- NOTE | 2017-11-05 16:05 | XR ---
Left RIBS HISTORY: Trauma and pain 4 views of the left ribs Cortical irregularity is suspected on one of the views of the fourth rib laterally on the left. No ev ident pneumothorax or pleural effusion, no lung contusion. IMPRESSION: Possible nondisplaced rib fracture. Bone scan may be of increased sensitivity.
--- NOTE | 2017-11-05 16:06 | XR ---
Left forearm HISTORY: Trauma and pain 2 views of the left forearm Bone mineralization is mildly reduced. Alignment is maintained. There is soft tissue swelling. IMPRESSION: No fracture or dislocation.
[2017-11-05 17:28] VITALS: BP 175/84; PULSE 95; RESP 20; TEMP 98.2
== END 2017-11-05 17:14 | disposition home or self-care (01) ==
LOC: EC 13:39
DX: S22.32XA Fracture of one rib, left side, initial encounter for closed fracture (principal); R00.0 Tachycardia, unspecified; Z23 Encounter for immunization; M79.602 Pain in left arm; M25.552 Pain in left hip; J44.9 Chronic obstructive pulmonary disease, unspecified; Z87.891 Personal history of nicotine dependence; Z79.51 Long term (current) use of inhaled steroids; Z79.899 Other long term (current) drug therapy; Z79.82 Long term (current) use of aspirin; W10.9XXA Fall (on) (from) unspecified stairs and steps, initial encounter
CPT/HCPCS: 36415; 70450; 71046; 72125; 73502; 80048; 81003; 84484; 85025; 86900; 86901; 90471; 90715; 93005; 99285

== ENCOUNTER 2020-01-18 10:51 | Inpatient (IN) | payer MEDICARE, OTHER ==
[2020-01-18] MEDS ORDERED: IPRATROPIUM 0.5 MG/2.5 ML NEBU INHALATION STA (11:07)
[2020-01-18] MEDS ORDERED: methylPREDNISolone SOD SUCCI 125 MG/2 ML VIAL IV STA ×2 (11:07→14:27)
[2020-01-18] MEDS ORDERED: ALBUTEROL NEBULIZED 2.5 MG/3 ML INHALATION STA (11:07)
[2020-01-18 11:41] LABS: Anisocytosis Moderate; Basophils % (A) 0 %; Eosinophils # (A) 0.1 k/uL (0-0.7); Eosinophils % (A) 1 %; HCT 35.4 % (39.0-53.0); Hypochromasia Slight; Lymphocytes # (A) 0.8 k/uL (1.0-4.8); Lymphocytes % (A) 7 %; MCH 28.6 pg (25.0-35.0); MCHC 31.1 g/dL (31.0-37.0); Macrocytosis Slight; Mean Platelet Volume 7.2; Monocytes # (A) 0.7 k/uL (0-1.0); Monocytes % (A) 6 %; Neutrophils # (A) 9.5 k/uL (1.3-7.7); Neutrophils % (A) 85 %; Platelet Count 385 k/uL (150-450); RBC 3.85 m/uL (4.30-5.90); WBC 11.2 k/uL (3.8-10.6)
[2020-01-18 11:49] LABS: ALT 16 U/L (4-49); AST 42 U/L (17-59); African American GFR (CKD) >90 (>60 ml/min/1.73 sqM); Albumin 3.1 g/dL (3.5-5.0); Alkaline Phosphatase 64 U/L (38-126); Anion Gap 8 mmol/L; Blood Urea Nitrogen 18 mg/dL (9-20); Calcium 9.4 mg/dL (8.4-10.2); Carbon Dioxide 28 mmol/L (22-30); Chloride 88 mmol/L (98-107); Glucose 97 mg/dL (74-99); Magnesium 1.8 mg/dL (1.6-2.3); Non-African American GFR(CKD) >90 (>60 ml/min/1.73 sqM); Potassium 4.8 mmol/L (3.5-5.1); Sodium 124 mmol/L (137-145); Total Bilirubin 0.6 mg/dL (0.2-1.3); Total Protein 5.3 g/dL (6.3-8.2)
--- NOTE | 2020-01-18 11:55 | ED ---
General Adult HPI - General Chief complaint: Shortness of Breath Stated complaint: Infection Time Seen by Provider: 01/18/20 10:55 Source: patient, RN notes reviewed, old records reviewed Mode of arrival: EMS Limitations: no limitations - History of Present Illness Initial comments: This is a 74-year-old male who presents emergency Department with a past medical history significant for COPD. Patient comes in today because his having increased shortness of breath as well as increased cough and increased sputum production. Patient states his primary medical care doctor wanted him to come to the emergency department today to be evaluated. Patient denies any chest pain or palpitations. Patient denies any fever or chills. Patient denies any abdominal pain patient denies nausea vomiting diarrhea. Patient denies any increased wanted like she states his right leg is been swollen more than left quite a while now. Patient denies any calf pain. - Related Data Home Medications Medication Instructions Recorded Confirmed Albuterol Inhaler [Ventolin Hfa 2 puff INHALATION RT-QID PRN 01/18/20 01/18/20 Inhaler] Albuterol Nebulized [Ventolin 2.5 mg INHALATION RT-BID 01/18/20 01/18/20 Nebulized] Ascorbic Acid [Vitamin C] 500 mg PO DAILY 01/18/20 01/18/20 Cyanocobalamin [Vitamin B-12] 500 mcg PO DAILY 01/18/20 01/18/20 Fluticasone/Umeclidin/Vilanter 1 puff INHALATION RT-DAILY 01/18/20 01/18/20 [Trelegy Ellipta 100-62.5-25] Lactose-Reduced Food [Boost Plus] 237 ml PO BID 01/18/20 01/18/20 Ubidecarenone [Co Q-10] 100 mg PO DAILY 01/18/20 01/18/20 Allergies Allergy/AdvReac Type Severity Reaction Status Date / Time No Known Allergies Allergy Verified 01/18/20 12:31 Review of Systems ROS Statement: Those systems with pertinent positive or pertinent negative responses have been documented in the HPI. ROS Other: All systems not noted in ROS Statement are negative. Past Medical History Past Medical History: COPD Additional Past Medical History / Comment(s): stg 4 emphysema History of Any Multi-Drug Resistant Organisms: None Reported Past Surgical History: Appendectomy Past Anesthesia/Blood Transfusion Reactions: No Reported Reaction Past Psychological History: No Psychological Hx Reported Past Alcohol Use History: Daily Past Drug Use History: None Reported - Past Family History Father Family Medical History: No Reported History Additional Family Medical History / Comment(s): Father was healthy and lived to be 92 yrs old. Mother Family Medical History: Dementia Additional Family Medical History / Comment(s): Mother had depression. She of dementia in her 60s. General Exam - General Exam Comments Initial Comments: GENERAL: Patient is well-developed and well-nourished. Patient is nontoxic and well- hydrated and is in mild distress. ENT: Neck is soft and supple. No significant lymphadenopathy is noted. Oropharynx is clear. Moist mucous membranes. Neck has full range of motion without eliciting any pain. EYES: The sclera were anicteric and conjunctiva were pink and moist. Extraocular movements were intact and pupils were equal round and reactive to light. Eyelids were unremarkable. PULMONARY: Unlabored respirations. Good breath sounds bilaterally. Patient has diffuse expiratory wheezing CARDIOVASCULAR: There is a regular rate and rhythm without any murmurs gallops or rubs. ABDOMEN: Soft and nontender with normal bowel sounds. SKIN: Skin is clear with no lesions or rashes and otherwise unremarkable. NEUROLOGIC: Patient is alert and oriented x3. Cranial nerves II through XII are grossly intact. Motor and sensory are also intact. Normal speech, volume and content. Symmetrical smile. MUSCULOSKELETAL: Normal extremities with adequate strength and full range of motion. No lower extremity swelling or edema. No calf tenderness. LYMPHATICS: No significant lymphadenopathy is noted PSYCHIATRIC: Normal psychiatric evaluation. Limitations: no limitations Course Vital Signs 01/18/20 01/18/20 01/18/20 10:55 11:00 11:21 Temperature 98.3 F Pulse Rate 99 99 100 Respiratory 16 24 Rate Blood Pressure 123/62 123/62 O2 Sat by Pulse 95 95 Oximetry 01/18/20 01/18/20 01/18/20 11:41 12:00 13:00 Temperature Pulse Rate 98 100 103 H Respiratory 24 24 Rate Blood Pressure 121/67 127/64 O2 Sat by Pulse 95 98 Oximetry Medical Decision Making - Medical Decision Making EKG shows sinus tachycardia with occasional PVC at 101 bpm CO interval 220 QRS 70 QT interval 396 QTC is 513. Patient's EKG shows no ST segment elevation or T-wave inversions in leads V2 through V6 which appear to be new. Chest x-ray continues to show a mass in the right upper lobe. Patient's d-dimer was elevated so I ordered CT to rule out PE. There was no PE they did continue to show a mass in the right upper lobe as well as some slight pleural effusions. Patient received a breathing treatment emergency department as well as some steroids and was improved slightly. No prior patient's troponin was elevated so started him on heparin [facility] to [facility] and spoke with cardiology upon admission and they were in agreement with the plan. Patient went to telemetry for continued heparin and aspirin. - Lab Data Result diagrams: 01/18/20 11:24 01/18/20 11:24 Lab Results 01/18/20 01/18/20 01/18/20 Range/Units 11:24 11:24 11:24 WBC 11.2 H (3.8-10.6) k/uL RBC 3.85 L (4.30-5.90) m/uL Hgb 11.0 L (13.0-17.5) gm/dL Hct 35.4 L (39.0-53.0) % MCV 92.0 (80.0-100.0) fL MCH 28.6 (25.0-35.0) pg MCHC 31.1 (31.0-37.0) g/dL RDW 22.0 H (11.5-15.5) % Plt Count 385 (150-450) k/uL Neutrophils % 85 % Lymphocytes % 7 % Monocytes % 6 % Eosinophils % 1 % Basophils % 0 % Neutrophils # 9.5 H (1.3-7.7) k/uL Lymphocytes # 0.8 L (1.0-4.8) k/uL Monocytes # 0.7 (0-1.0) k/uL Eosinophils # 0.1 (0-0.7) k/uL Basophils # 0.0 (0-0.2) k/uL Hypochromasia Slight Anisocytosis Moderate Macrocytosis Slight PT 10.4 (9.0-12.0) sec INR 1.0 (<1.2) APTT 24.9 (22.0-30.0) sec D-Dimer 2.86 H (<0.60) mg/L FEU Sodium 124 L (137-145) mmol/L Potassium 4.8 (3.5-5.1) mmol/L Chloride 88 L (98-107) mmol/L Carbon Dioxide 28 (22-30) mmol/L Anion Gap 8 mmol/L BUN 18 (9-20) mg/dL Creatinine 0.62 L (0.66-1.25) mg/dL Est GFR (CKD-EPI)AfAm >90 (>60 ml/min/1.73 sqM) Est GFR (CKD-EPI)NonAf >90 (>60 ml/min/1.73 sqM) Glucose 97 (74-99) mg/dL Plasma Lactic Acid Ignacio (0.7-2.0) mmol/L Calcium 9.4 (8.4-10.2) mg/dL Magnesium 1.8 (1.6-2.3) mg/dL Total Bilirubin 0.6 (0.2-1.3) mg/dL AST 42 (17-59) U/L ALT 16 (4-49) U/L Alkaline Phosphatase 64 (38-126) U/L Troponin I (0.000-0.034) ng/mL Total Protein 5.3 L (6.3-8.2) g/dL Albumin 3.1 L (3.5-5.0) g/dL 01/18/20 01/18/20 Range/Units 11:24 11:24 WBC (3.8-10.6) k/uL RBC (4.30-5.90) m/uL Hgb (13.0-17.5) gm/dL Hct (39.0-53.0) % MCV (80.0-100.0) fL MCH (25.0-35.0) pg MCHC (31.0-37.0) g/dL RDW (11.5-15.5) % Plt Count (150-450) k/uL Neutrophils % % Lymphocytes % % Monocytes % % Eosinophils % % Basophils % % Neutrophils # (1.3-7.7) k/uL Lymphocytes # (1.0-4.8) k/uL Monocytes # (0-1.0) k/uL Eosinophils # (0-0.7) k/uL Basophils # (0-0.2) k/uL Hypochromasia Anisocytosis Macrocytosis PT (9.0-12.0) sec INR (<1.2) APTT (22.0-30.0) sec D-Dimer (<0.60) mg/L FEU Sodium (137-145) mmol/L Potassium (3.5-5.1) mmol/L Chloride (98-107) mmol/L Carbon Dioxide (22-30) mmol/L Anion Gap mmol/L BUN (9-20) mg/dL Creatinine (0.66-1.25) mg/dL Est GFR (CKD-EPI)AfAm (>60 ml/min/1.73 sqM) Est GFR (CKD-EPI)NonAf (>60 ml/min/1.73 sqM) Glucose (74-99) mg/dL Plasma Lactic Acid Ignacio 1.7 (0.7-2.0) mmol/L Calcium (8.4-10.2) mg/dL Magnesium (1.6-2.3) mg/dL Total Bilirubin (0.2-1.3) mg/dL AST (17-59) U/L ALT (4-49) U/L Alkaline Phosphatase (38-126) U/L Troponin I 0.387 H* (0.000-0.034) ng/mL Total Protein (6.3-8.2) g/dL Albumin (3.5-5.0) g/dL Critical Care Time Critical Care Time: Yes Total Critical Care Time: 35 Disposition Clinical Impression: Non-STEMI (non-ST elevated myocardial infarction), Hyponatremia, COPD exace rbation Disposition: ADMITTED IP TO THIS [facility] Referrals: Gal Hidalgo DO [Primary Care Provider] - 1-2 days Time of Disposition: 14:26
--- NOTE | 2020-01-18 12:04 | XR ---
EXAMINATION TYPE: XR chest 2V DATE OF EXAM: 01/18/2020 COMPARISON: 11/05/2017 HISTORY: Shortness of breath TECHNIQUE: Frontal and lateral views of the chest are obtained. FINDINGS: Scattered senescent parenchymal changes noted. Hyperinflation compatible with COPD. Vague basilar interstitial infiltrates are suggested. Correlate for developing pneumonia. Heart size is stable. Mediastinal structures are stable and grossly unremarkable. No evidence for hilar prominence. Degenerative changes dorsal spine. IMPRESSION: 1. Vague basilar interstitial infiltrates are suggested. Correlate for developing pneumonia.
[2020-01-18 12:14] LABS: Partial Thromboplastin Time 24.9 sec (22.0-30.0); Prothrombin Time 10.4 sec (9.0-12.0)
[2020-01-18 12:22] LABS: D-Dimer 2.86 mg/L FEU (<0.60)
--- NOTE | 2020-01-18 13:18 | CT ---
EXAMINATION TYPE: CT chest angio for PE DATE OF EXAM: 01/18/2020 COMPARISON: Prior CT 10/23/2017 HISTORY: Shortness of breath. CT DLP: 271.9 mGycm Automated exposure control for dose reduction was used. CONTRAST: CT Chest for pulmonary embolism performed with with IV Contrast, patient injected with 100 mL of Isov ue 370. FINDINGS: LUNGS: The lungs are remarkable for for extensive emphysematous change as on prior exam, there are bi lateral pleural effusions present which are minimal, associated atelectasis is present. The right u pper lobe lung mass which is pleural-based and described in prior report has increased in size and sh ows spiculated margins, is pleural-based at the level of the fourth thoracic vertebral body on the ri ght. The lesion now measures approximately 2.4 x 2.4 cm x 2.1 cm. There is prominence of interstitium in the lung bases. The tracheobronchial tree is patent. MEDIASTINUM: There is satisfactory enhancement of the pulmonary artery and its branches, there is no CT evidence for pulmonary embolism. There are no greater than 1 cm hilar or mediastinal lymph nodes. There are coronary artery calcifications present. No pericardial effusion is seen. AORTA: Root of the aorta is measuring 4.1 cm. OTHER: Soft tissue mass present in the left breast measures 2.1 cm IMPRESSION: Interval increase in size in right upper lobe lung mass. Left breast mass. Emphysema. No evident pulm onary embolus. Small effusions and associated atelectasis, interstitial lung disease. Borderline aort ic aneurysm.
[2020-01-18] MEDS ORDERED: ASPIRIN 81 MG PO STA (14:27)
[2020-01-18] MEDS ORDERED: HEPARIN SODIUM,PORCINE 5,000 UNIT/ML 1 ML VIAL IV ONE (15:08)
[2020-01-18] MEDS ORDERED: LORazepam 2 MG/ML INJ IV PRN ×3 (15:43)
[2020-01-18] MEDS: HEPARIN SOD,PORK IN 0.45% NACL 25,000 UNIT in 0.45% NACL 1 250ML.BAG IV SCH (15:51)
[2020-01-18] MEDS: IPRATROPIUM-ALBUTEROL 3 ML NEB INHALATION PRN (16:12)
[2020-01-18 16:50] LABS: Glucose,Whole Blood 144 mg/dL (75-99)
--- NOTE | 2020-01-18 17:23 | P.CNPUL ---
History of Present Illness Consult date: 01/18/20 Reason for consult: dyspnea, COPD History of present illness: 74-year-old male patient with advanced COPD with a baseline FEV1 of 24% of predicted, and a total lung capacity of 127% of predicted and diffusion capacity of 23% of predicted consistent with severe advanced COPD. The patient has been followed up in our office. The patient has been maintained on Trelegy Ellipta as maintenance in addition to her maintenance prednisone of 10 mg on a daily basis and oxygen 2 L/m 24 7. The patient has a portable concentrator. The patient also has known scar in the right apical area which needs to be monitored. Based on his advanced comorbidities and advanced COPD, no further workup has been done regarding this abnormal opacity/scar in the right upper lobe. Note that he has diffuse emphysema with upper lobe predominance and there is no mediastinal lymphadenopathy. His last hospitalization for COPD exacerbation was back in 2018. The patient comes into the MRSA problem because of worsening shortness of breath and increased cough and increased sputum production. His primary medical doctor wanted to come into the hospital to be evaluated. He has no fever. Has no chills. No nausea vomiting or abdominal pain. He has significant limitation of exercise capacity secondary to advanced COPD. He denies having any swelling in lower extremities. He denied having any calf pain or tenderness. A CT angios and was done in the [facility] that showed no evidence of any pulmonary embolism. There was diffuse emphysema and as for the right upper lobe opacity, this was again seen at the pleural-based lesion that has increased in size compared to the previous CAT scan from 10/23/2018. It showed some spiculation and it was measuring 2.4 x 2.4 x 2.1 cm in size. There is some scarring in the lung bases bilaterally. There is extens freddie edematous changes throughout the lung torres bilaterally. There is also a left breast opacity noted. The EKG was consistent with sinus tachycardia with occasional PVCs. There were T-wave inversions that would raise the possibility of an underlying anterolateral ischemia. No ST segment elevations. The patient had abnormalities and troponin with levels being 0.387 and 0.331 respectively 2. His sodium level came up 124. White cell count 11.2 with a hemoglobin of 11.0 and a platelet count of 385. Review of Systems Constitutional: Reports fatigue, Reports lethargy, Reports poor appetite, Reports weakness, Reports weight loss Eyes: denies blurred vision, denies bulging eye, denies decreased vision Ears: deny: decreased hearing, ear discharge, earache Ears, nose, mouth and throat: Denies headache, Denies sore throat Cardiovascular: Reports decreased exercise tolerance, Reports dyspnea on exertion, Reports rapid heart beat, Reports shortness of breath Respiratory: Reports cough, Reports cough with sputum, Reports dyspnea, Reports wheezing Gastrointestinal: Denies abdominal pain, Denies diarrhea, Denies nausea, Denies vomiting Genitourinary: Reports as per HPI Musculoskeletal: Denies myalgias Musculoskeletal: absent: ankle pain, ankle stiffness, ankle swelling Integumentary: Denies pruritus, Denies rash Neurological: Denies numbness, Denies weakness Psychiatric: Reports as per HPI, Reports sleep disturbances Endocrine: Reports fatigue, Reports weight change Past Medical History Past Medical History: Blood Disorder, COPD, Respiratory Disorder Additional Past Medical History / Comment(s): Chronic hypoxic respiratory failure with home oxygen at 2L/NC ATC, steroid dependent, tracheobronchitis, bilateral leg edema, hemachromatosis per past medical record but pt had no knowledge of this, moderate protein calorie malnutrition. Advanced COPD. Right upper lobe opacity History of Any Multi-Drug Resistant Organisms: None Reported Past Surgical History: Appendectomy Past Anesthesia/Blood Transfusion Reactions: No Reported Reaction Smoking Status: Former smoker - Past Family History Father Family Medical History: No Reported History Additional Family Medical History / Comment(s): Father was healthy and lived to be 92 yrs old. Mother Family Medical History: Dementia Additional Family Medical History / Comment(s): Mother had depression. She of dementia in her 60s. Medications and Allergies Home Medications Medication Instructions Recorded Confirmed Type Albuterol Inhaler [Ventolin Hfa 2 puff INHALATION RT-QID PRN 01/18/20 01/18/20 History Inhaler] Albuterol Nebulized [Ventolin 2.5 mg INHALATION RT-BID 01/18/20 01/18/20 History Nebulized] Ascorbic Acid [Vitamin C] 500 mg PO DAILY 01/18/20 01/18/20 History Cyanocobalamin [Vitamin B-12] 500 mcg PO DAILY 01/18/20 01/18/20 History Fluticasone/Umeclidin/Vilanter 1 puff INHALATION RT-DAILY 01/18/20 01/18/20 History [Trelegy Ellipta 100-62.5-25] Lactose-Reduced Food [Boost Plus] 237 ml PO BID 01/18/20 01/18/20 History Ubidecarenone [Co Q-10] 100 mg PO DAILY 01/18/20 01/18/20 History Allergies Allergy/AdvReac Type Severity Reaction Status Date / Time No Known Allergies Allergy Verified 01/18/20 12:31 Physical Exam Vitals: Vital Signs Temp Pulse Pulse Resp BP BP Pulse Ox 01/18/20 16:10 98 01/18/20 16:00 97.6 F 106 H 24 132/83 98 01/18/20 15:59 98.2 F 01/18/20 15:00 92 16 123/68 99 01/18/20 14:00 98 F 101 H 24 106/58 99 01/18/20 13:00 103 H 24 127/64 98 01/18/20 12:00 100 24 121/67 95 01/18/20 11:41 98 01/18/20 11:21 100 01/18/20 11:00 99 24 123/62 95 01/18/20 10:55 98.3 F 99 16 123/62 95 Intake and Output 01/18/20 01/18/20 01/18/20 06:59 14:59 22:59 Other: Weight 54.431 kg 54.431 kg The patient is a mild degree of respiratory distress even at rest. Looks to be very thin and cachectic with a BMI of 20.6 Head exam was generally normal. There was no scleral icterus or corneal arcus. Mucous membranes were moist. Neck was supple and without jugular venous distension, thyromegaly, or carotid bruits. Carotids were easily palpable bilaterally. There was no adenopathy. Cardiovascular examination reveals regular rhythm rate. S1-S2 normal. No S3-S4. No distinct murmur. Lungs reveal mostly diminished breath sounds. A few scattered mild rhonchi. There is diffuse extremity wheezes throughout the lung his bilaterally along with prolongation of expiratory phase of breathing. He has a barrel chest. No use of accessory muscles of breathing. There is a left breast opacity which is firm and masslike lesion above the nipple with skin retractions overlying this lesion. Another similar spot in the upper back area posteriorly. Abdomen soft bowel sounds are heard. No masses or tenderness. Extremities are intact. No cyanosis clubbing. No edema. Skin without rash.Examination of the skin revealed no evidence of significant rashes, suspicious appearing nevi or other concerning lesions. Neurologic examination is nonfocal. The patient is awake and alert Results - Laboratory Findings CBC and BMP: 01/18/20 11:24 01/18/20 11:24 PT/INR, D-dimer PT 10.4 sec (9.0-12.0) 01/18/20 11:24 INR 1.0 (<1.2) 01/18/20 11:24 D-Dimer 2.86 mg/L FEU (<0.60) H 01/18/20 11:24 Abnormal lab findings: Abnormal Labs 01/18/20 01/18/20 01/18/20 11:24 11:24 11:24 WBC 11.2 H RBC 3.85 L Hgb 11.0 L Hct 35.4 L RDW 22.0 H Neutrophils # 9.5 H Lymphocytes # 0.8 L D-Dimer 2.86 H Sodium 124 L Chloride 88 L Creatinine 0.62 L Troponin I Total Protein 5.3 L Albumin 3.1 L 01/18/20 01/18/20 11:24 15:09 WBC RBC Hgb Hct RDW Neutrophils # Lymphocytes # D-Dimer Sodium Chloride Creatinine Troponin I 0.387 H* 0.331 H* Total Protein Albumin - Diagnostic Findings Chest x-ray: image reviewed CT scan - chest: image reviewed Assessment and Plan Plan: 1 acute exacerbation of COPD, with secondary shortness of breath. 2 severe COPD, steroid-dependent and patient has been oxygen dependent and the patient has been on urology Trelegy Ellipta as maintenance regarding his advanced COPD. 3 chronic hypoxic respiratory failure maintained on 2 L of oxygen by nasal cannula 4 cachexia with significant loss in total body muscle and fat mass and his current BMI 20.6 5 right upper lobe enlarging spiculated opacity/scar which has grown in size compared to the previous CAT scan from 2018. His ability of malignancy cannot be completely excluded in the right upper lobe. Nevertheless, this is a limited growth over the past one half years which makes me consider the possibility of an indolent or a slow-growing tumor. 6 acute non-STEMI with diffuse T-wave inversion positive troponins, currently on IV heparin 7 history of hemachromatosis with previous history of phlebotomy. 8 hyponatremia, hypochloremia 9 suspected a breast mass Plan Saline infusion at the rate of 75 Carmela hour and monitor the sodium level Continue DuoNeb nebulized treatments around the clock IV Solu-Medrol Right upper lobe opacity will be kept for outpatient evaluation and workup. The patient advanced COPD and is COPD is quite end-stage and he may not be a candidate for any further surgical or therapeutic interventions regarding the right upper lobe opacification of the precancerous in nature. Nevertheless, the growth of the past has been quite slow and may suggest an underlying slow- growing tumor knowing that his been limited growth over the past 3 years. Continue IV heparin Cardiology consultation Echocardiogram Coronavirus, COVID 19 nasal swab Ultrasound of the left breast/opacity/mass Surgical consultation regarding the breast mass We'll continue to follow
[2020-01-18] MEDS: SODIUM CHLORIDE 0.9% 1,000 ML IV SCH ×2 (18:14→20:38)
[2020-01-18 20:28] LABS: Glucose,Whole Blood 172 mg/dL (75-99)
[2020-01-18] MEDS: methylPREDNISolone SOD SUCCI 40 MG/ML 1 ML VIAL IV SCH (20:35)
[2020-01-18] MEDS: INSULIN ASPART (NovoLOG) 100 UNIT/ML VIAL SQ SCH (20:36)
--- NOTE | 2020-01-18 23:59 | P.HPIM ---
History of Present Illness H&P Date: 01/18/20 Chief Complaint: DOT Patient is a 74-year-old male with a known history of COPD, chronic hypoxic respiratory failure on home oxygen and steroid-dependent, bilateral lower extremity edema, hematochromatosis and previous history of smoking and other medical problems presents to ER with complaints of worsening shortness of breath cough and increased sputum production. Patient was seen by his primary care physician and sent him to ER. Otherwise patient denied any complaints of chest pain. No headache or dizziness or lightheadedness. No fever no chills. No re cent illnesses. No nausea vomiting or abdominal pain or diarrhea. Patient also states that his right leg is chronically swollen than the left. Denied any calf pain. Denied any history of blood clots. Chest x-ray showed vague basilar interstitial infiltrates are suggested. Correlate for developing pneumonia. CT angiogram of the chest was done showed interval increase in size in the right upper lobe lung mass. Left breast mass. Emphysema. No evidence of pulmonary embolus. Small effusions and associated atelectasis, interstitial lung disease. Borderline aortic aneurysm. EKG showed T wave inversions in the lateral leads. Sinus tachycardia. PVCs. Laboratory data showed WBC 11.2, hemoglobin 11.0, RDW 22, sodium 124, potassium 4.8, chloride 488, BUN 18 and creatinine 0.62 Troponin 0 0.387, 0.331, 0.234 Albumin 3.1 Lactic acid level is 1.7 Review of Systems Constitutional: Patient denies any fever or chills . Generalized weakness and weight loss.. Abdomen: Patient denied nausea vomiting and diarrhea and abdominal pain. Cardiovascular: Patient denies any chest pain or short of breath no p alpitations. Respiratory:Patient does have cough with sputum production whitish and shortness of breath.h Neurologic: Patient denied any numbness or tingling headache. Musculoskeletal: Patient denies any complaints of joint swelling or deformity. Skin: Negative Psychiatric: Negative Endocrine: No heat or cold intolerance. No recent weight gain. Genitourinary: No dysuria or hematuria. All other 14 point ROS negative except the above Past Medical History Past Medical History: Blood Disorder, COPD, Respiratory Disorder Additional Past Medical History / Comment(s): Chronic hypoxic respiratory failure with home oxygen at 2L/NC ATC, steroid dependent, tracheobronchitis, bilateral leg edema, hemachromatosis per past medical record but pt had no knowledge of this, moderate protein calorie malnutrition. Advanced COPD. Right upper lobe opacity History of Any Multi-Drug Resistant Organisms: None Reported Past Surgical History: Appendectomy Past Anesthesia/Blood Transfusion Reactions: No Reported Reaction Smoking Status: Former smoker - Past Family History Father Family Medical History: No Reported History Additional Family Medical History / Comment(s): Father was healthy and lived to be 92 yrs old. Mother Family Medical History: Dementia Additional Family Medical History / Comment(s): Mother had depression. She of dementia in her 60s. Medications and Allergies Home Medications Medication Instructions Recorded Confirmed Type Albuterol Inhaler [Ventolin Hfa 2 puff INHALATION RT-QID PRN 01/18/20 01/18/20 History Inhaler] Albuterol Nebulized [Ventolin 2.5 mg INHALATION RT-BID 01/18/20 01/18/20 History Nebulized] Ascorbic Acid [Vitamin C] 500 mg PO DAILY 01/18/20 01/18/20 History Cyanocobalamin [Vitamin B-12] 500 mcg PO DAILY 01/18/20 01/18/20 History Fluticasone/Umeclidin/Vilanter 1 puff INHALATION RT-DAILY 01/18/20 01/18/20 History [Trelegy Ellipta 100-62.5-25] Lactose-Reduced Food [Boost Plus] 237 ml PO BID 01/18/20 01/18/20 History Ubidecarenone [Co Q-10] 100 mg PO DAILY 01/18/20 01/18/20 History Allergies Allergy/AdvReac Type Severity Reaction Status Date / Time No Known Allergies Allergy Verified 01/18/20 12:31 Physical Exam Vitals: Vital Signs Temp Pulse Pulse Resp BP BP Pulse Ox 01/18/20 16:28 100 01/18/20 16:10 98 01/18/20 16:00 97.6 F 106 H 24 132/83 98 01/18/20 15:59 98.2 F 01/18/20 15:00 92 16 123/68 99 01/18/20 14:00 98 F 101 H 24 106/58 99 01/18/20 13:00 103 H 24 127/64 98 01/18/20 12:00 100 24 121/67 95 01/18/20 11:41 98 01/18/20 11:21 100 01/18/20 11:00 99 24 123/62 95 01/18/20 10:55 98.3 F 99 16 123/62 95 Intake and Output 01/18/20 01/18/20 01/18/20 06:59 14:59 22:59 Other: Weight 54.431 kg 54.431 kg PHYSICAL EXAMINATION: Patient is lying in the bed comfortably, no acute distress, awake alert and oriented.. HEENT: Normocephalic. Neck is supple. Pupils reactive. Nostrils clear. Oral cavity is moist. Ears reveal no drainage. Neck reveals no JVD, carotid bruits, or thyromegaly. CHEST EXAMINATION: Trachea is central. Symmetrical expansion. Bilateral diffuse wheezing and rhonchi. Bibasilar diminished air entry.. CARDIAC: Normal S1, S2 with no gallops. No murmurs ABDOMEN: Soft. Bowel sounds normal. No organomegaly. No abdominal bruits. Extremities: 2+ edema.. No clubbing or cyanosis Neurologically awake, alert, oriented x3 with well-coordinated movements. No focal deficits noted Skin: No rash or skin lesions. Psychiatric: Coperative. Nonsuicidal Musculoskeletal: No joint swelling or deformity. Normal range of motion. Results CBC & Chem 7: 01/18/20 11:24 01/18/20 11:24 Labs: Abnormal Lab Results - Last 24 Hours (Table) 01/18/20 01/18/20 01/18/20 Range/Units 11:24 11:24 11:24 WBC 11.2 H (3.8-10.6) k/uL RBC 3.85 L (4.30-5.90) m/uL Hgb 11.0 L (13.0-17.5) gm/dL Hct 35.4 L (39.0-53.0) % RDW 22.0 H (11.5-15.5) % Neutrophils # 9.5 H (1.3-7.7) k/uL Lymphocytes # 0.8 L (1.0-4.8) k/uL D-Dimer 2.86 H (<0.60) mg/L FEU Sodium 124 L (137-145) mmol/L Chloride 88 L (98-107) mmol/L Creatinine 0.62 L (0.66-1.25) mg/dL POC Glucose (mg/dL) (75-99) mg/dL Troponin I (0.000-0.034) ng/mL Total Protein 5.3 L (6.3-8.2) g/dL Albumin 3.1 L (3.5-5.0) g/dL 01/18/20 01/18/20 01/18/20 Range/Units 11:24 15:09 16:49 WBC (3.8-10.6) k/uL RBC (4.30-5.90) m/uL Hgb (13.0-17.5) gm/dL Hct (39.0-53.0) % RDW (11.5-15.5) % Neutrophils # (1.3-7.7) k/uL Lymphocytes # (1.0-4.8) k/uL D-Dimer (<0.60) mg/L FEU Sodium (137-145) mmol/L Chloride (98-107) mmol/L Creatinine (0.66-1.25) mg/dL POC Glucose (mg/dL) 144 H (75-99) mg/dL Troponin I 0.387 H* 0.331 H* (0.000-0.034) ng/mL Total Protein (6.3-8.2) g/dL Albumin (3.5-5.0) g/dL Thrombosis Risk Factor Assmnt - DVT/VTE Prophylaxis DVT/VTE Prophylaxis: Pharmacologic Prophylaxis ordered - Choose All That Apply Any of the Below Risk Factors Present?: Yes Each Factor Represents 1 point: Abnormal pulmonary function (COPD), Acute IL, Serious lung disease incl. pneumonia (< 1month), Swollen legs (current) Other Risk Factors: Yes Each Risk Factor Represents 3 Points: Age 75 years or older Other congenital or acquired thrombophilia - If yes, enter type in comment: No Thrombosis Risk Factor Assessment Total Risk Factor Score: 7 Thrombosis Risk Factor Assessment Level: High Risk Assessment and Plan Assessment: Shortness of breath secondary to acute COPD exacerbation and also interval increase in the right upper lobe mass. Severe COPD on home oxygen and steroid-dependent Chronic hypoxic respiratory failure secondary to COPD currently on 2 L oxygen via nasal cannula at home. Acute non-ST elevated IL with elevated troponin level. Trending down now. Right upper lobe lung mass increasing in size Left breast mass shown in the CT chest HyponatremiaLikely hypovolemic gentle IV hydration. Moderate protein calorie malnutrition History of hematochromatosis Previous history of smoking DVT prophylaxis. Patient is currently on heparin drip. Plan: Patient will be continued on duo nebs, IV steroids and oxygen therapy. Patient was started on heparin drip due to elevated troponin level. Patient will was seen by pulmonary and recommended outpatient work-up for right upper lobe mass. Cardiology was consulted. Prognosis guarded with multiple medical problems and comorbid conditions. Time with Patient: Greater than 30
[2020-01-19 06:12] LABS: Glucose,Whole Blood 113 mg/dL (75-99)
[2020-01-19 06:21] LABS: Anisocytosis Moderate; Basophils % (A) 0 %; Eosinophils # (A) 0.1 k/uL (0-0.7); Eosinophils % (A) 1 %; HCT 31.4 % (39.0-53.0); HGB 9.9 gm/dL (13.0-17.5); Hypochromasia Moderate; Lymphocytes # (A) 0.3 k/uL (1.0-4.8); Lymphocytes % (A) 7 %; MCH 29.6 pg (25.0-35.0); MCHC 31.4 g/dL (31.0-37.0); MCV 94.1 fL (80.0-100.0); Macrocytosis Slight; Mean Platelet Volume 7.1; Monocytes # (A) 0.1 k/uL (0-1.0); Monocytes % (A) 3 %; Neutrophils # (A) 3.5 k/uL (1.3-7.7); Neutrophils % (A) 87 %; Platelet Count 366 k/uL (150-450); RBC 3.34 m/uL (4.30-5.90); RDW 21.8 % (11.5-15.5)
[2020-01-19] MEDS: INSULIN ASPART (NovoLOG) 100 UNIT/ML VIAL SQ SCH ×4 (06:22→22:15)
[2020-01-19 06:37] LABS: African American GFR (CKD) >90 (>60 ml/min/1.73 sqM); Anion Gap 5 mmol/L; Blood Urea Nitrogen 19 mg/dL (9-20); Calcium 8.6 mg/dL (8.4-10.2); Carbon Dioxide 28 mmol/L (22-30); Chloride 94 mmol/L (98-107); Glucose 99 mg/dL (74-99); Non-African American GFR(CKD) >90 (>60 ml/min/1.73 sqM); Potassium 5.3 mmol/L (3.5-5.1); Sodium 127 mmol/L (137-145)
[2020-01-19] MEDS: IPRATROPIUM-ALBUTEROL 3 ML NEB INHALATION PRN ×4 (07:23→20:19)
--- NOTE | 2020-01-19 07:54 | USB ---
Reason for exam: clinical finding. Indicated problem(s): palpable abnormality in the left breast. US Breast Limited LT Left limited breast ultrasound including focal area of concern, retroareolar and axilla demonstrates a 2.2 x 2.0 x 1.6cm circular, hypoechoic, vascular lesion at 11 o'clock. These results were verbally communicated with the patient and result sheet given to the patient on 01/19/20. ASSESSMENT: Suspicious, BI-RAD 4 RECOMMENDATION: Ultrasound core biopsy of the left breast.
[2020-01-19] MEDS: methylPREDNISolone SOD SUCCI 40 MG/ML 1 ML VIAL IV SCH ×2 (08:49→22:14)
[2020-01-19] MEDS ORDERED: ASPIRIN 325 MG TAB PO SCH (09:00)
--- NOTE | 2020-01-19 10:55 | P.GSCN ---
<Anna Garcia - Last Filed: 01/19/20 10:49> History of Present Illness Consult date: 01/19/20 Reason for Consult: left chest mass Requesting physician: Landry Wilson History of present illness: CHIEF COMPLAINT: Left breast mass HISTORY OF PRESENT ILLNESS: 74-year-old male who is currently admitted to the hospital secondary to COPD and NSTEMI. Patient is scheduled for a cardiac cath today. He underwent CTA revealing left breast mass. General surgery was consulted for further evaluation. Patient examined this morning at the bedside. He is mildly SOB during examination. He states he was not aware of a breast mass. He states he thought he felt something there in the past but never paid any more attention to it. Denies pain to left breast. Denies any discharge or foul odor from the left breast. PAST MEDICAL HISTORY: See list. PAST SURGICAL HISTORY: See list. SOCIAL HISTORY: No illicit drug use. REVIEW OF SYSTEMS: CONSTITUTIONAL: Denies fever or chills. HEENT: Denies blurred vision, vision changes, or eye pain. Denies hemoptysis CARDIOVASCULAR: Denies chest pain or pressure. RESPIRATORY: Mild shortness of breath. GASTROINTESTINAL: Denies abdominal pain. Denies nausea or vomiting. HEMATOLOGIC: Denies bleeding disorders. GENITOURINARY: Denies any blood in urine. SKIN: Denies pruitis. Denies rash. PHYSICAL EXAM: VITAL SIGNS: Reviewed. GENERAL: Well-developed in no acute distress. HEENT: No sclera icterus. Extraocular movements grossly intact. Moist buccal mucosa. Head is atraumatic, normocephalic. ABDOMEN: Soft. Nondistended. Nontender. NEUROLOGIC: Alert and oriented. Cranial nerves II through XII grossly intact. CHEST: Left breast with approximately 1 inch x 1 inch palpable firm nonmobile mass located at approximately the 11oclock position. There is hyperpigmentation of the skin surrounding this mass as well as some minimal skin retraction. No palpable axillary adenopathy. LABORATORY DATA: WBC 4.0. Hemoglobin 9.9. Platelet count 366. Sodium 127. Potassium 5.3. BUN 19. Creatinine 0.54. IMAGING: -Chest CTA: Interval increase in size and right upper lobe lung mass. Left breast mass. Emphysema. No evident pulmonary embolism. Small effusions and associated atelectasis. -Left breast ultrasound: Focal area of concern, retroareolar and axilla demonstr ates 2.2 x 2.0 x 1.6 cm circular hypoechogenic vascular lesion at 11:00. Suspicious BI-RAD 4. ASSESSMENT: 1. Left breast mass PLAN: Recommend core biopsy of left breast mass. This may be performed as an outpatient when patient is medically stable. He may follow up outpatient with Dr. Aceves. Nurse practitioner note has been reviewed by physician. Signing provider agrees with the documented findings, assessment, and plan of care. Past Medical History Past Medical History: Blood Disorder, COPD, Respiratory Disorder Additional Past Medical History / Comment(s): Chronic hypoxic respiratory failure with home oxygen at 2L/NC ATC, steroid dependent, tracheobronchitis, bilateral leg edema, hemachromatosis per past medical record but pt had no knowledge of this, moderate protein calorie malnutrition. Advanced COPD. Right upper lobe opacity History of Any Multi-Drug Resistant Organisms: None Reported Past Surgical History: Appendectomy Past Anesthesia/Blood Transfusion Reactions: No Reported Reaction Smoking Status: Former smoker - Past Family History Father Family Medical History: No Reported History Additional Family Medical History / Comment(s): Father was healthy and lived to be 92 yrs old. Mother Family Medical History: Dementia Additional Family Medical History / Comment(s): Mother had depression. She of dementia in her 60s. Medications and Allergies Home Medications Medication Instructions Recorded Confirmed Type Albuterol Inhaler [Ventolin Hfa 2 puff INHALATION RT-QID PRN 01/18/20 01/18/20 History Inhaler] Albuterol Nebulized [Ventolin 2.5 mg INHALATION RT-BID 01/18/20 01/18/20 History Nebulized] Ascorbic Acid [Vitamin C] 500 mg PO DAILY 01/18/20 01/18/20 History Cyanocobalamin [Vitamin B-12] 500 mcg PO DAILY 01/18/20 01/18/20 History Fluticasone/Umeclidin/Vilanter 1 puff INHALATION RT-DAILY 01/18/20 01/18/20 History [Trelegy Ellipta 100-62.5-25] Lactose-Reduced Food [Boost Plus] 237 ml PO BID 01/18/20 01/18/20 History Ubidecarenone [Co Q-10] 100 mg PO DAILY 01/18/20 01/18/20 History Allergies Allergy/AdvReac Type Severity Reaction Status Date / Time No Known Allergies Allergy Verified 01/18/20 12:31 Surgical - Exam Vital Signs Temp Pulse Resp BP Pulse Ox 98.3 F 99 16 123/62 95 01/18/20 10:55 01/18/20 10:55 01/18/20 10:55 01/18/20 10:55 01/18/20 10:55 Results - Labs 01/19/20 05:52 01/19/20 05:52 Abnormal Lab Results - Last 24 Hours (Table) 01/18/20 01/18/20 01/18/20 Range/Units 11:24 11:24 11:24 WBC 11.2 H (3.8-10.6) k/uL RBC 3.85 L (4.30-5.90) m/uL Hgb 11.0 L (13.0-17.5) gm/dL Hct 35.4 L (39.0-53.0) % RDW 22.0 H (11.5-15.5) % Neutrophils # 9.5 H (1.3-7.7) k/uL Lymphocytes # 0.8 L (1.0-4.8) k/uL APTT (22.0-30.0) sec D-Dimer 2.86 H (<0.60) mg/L FEU Sodium 124 L (137-145) mmol/L Potassium (3.5-5.1) mmol/L Chloride 88 L (98-107) mmol/L Creatinine 0.62 L (0.66-1.25) mg/dL POC Glucose (mg/dL) (75-99) mg/dL Troponin I (0.000-0.034) ng/mL Total Protein 5.3 L (6.3-8.2) g/dL Albumin 3.1 L (3.5-5.0) g/dL 01/18/20 01/18/20 01/18/20 Range/Units 11:24 15:09 16:49 WBC (3.8-10.6) k/uL RBC (4.30-5.90) m/uL Hgb (13.0-17.5) gm/dL Hct (39.0-53.0) % RDW (11.5-15.5) % Neutrophils # (1.3-7.7) k/uL Lymphocytes # (1.0-4.8) k/uL APTT (22.0-30.0) sec D-Dimer (<0.60) mg/L FEU Sodium (137-145) mmol/L Potassium (3.5-5.1) mmol/L Chloride (98-107) mmol/L Creatinine (0.66-1.25) mg/dL POC Glucose (mg/dL) 144 H (75-99) mg/dL Troponin I 0.387 H* 0.331 H* (0.000-0.034) ng/mL Total Protein (6.3-8.2) g/dL Albumin (3.5-5.0) g/dL 01/18/20 01/18/20 01/18/20 Range/Units 20:26 21:23 23:20 WBC (3.8-10.6) k/uL RBC (4.30-5.90) m/uL Hgb (13.0-17.5) gm/dL Hct (39.0-53.0) % RDW (11.5-15.5) % Neutrophils # (1.3-7.7) k/uL Lymphocytes # (1.0-4.8) k/uL APTT 39.4 H (22.0-30.0) sec D-Dimer (<0.60) mg/L FEU Sodium (137-145) mmol/L Potassium (3.5-5.1) mmol/L Chloride (98-107) mmol/L Creatinine (0.66-1.25) mg/dL POC Glucose (mg/dL) 172 H (75-99) mg/dL Troponin I 0.234 H* (0.000-0.034) ng/mL Total Protein (6.3-8.2) g/dL Albumin (3.5-5.0) g/dL 01/19/20 01/19/20 01/19/20 Range/Units 05:52 05:52 05:52 WBC (3.8-10.6) k/uL RBC 3.34 L (4.30-5.90) m/uL Hgb 9.9 L (13.0-17.5) gm/dL Hct 31.4 L (39.0-53.0) % RDW 21.8 H (11.5-15.5) % Neutrophils # (1.3-7.7) k/uL Lymphocytes # 0.3 L (1.0-4.8) k/uL APTT 46.4 H (22.0-30.0) sec D-Dimer (<0.60) mg/L FEU Sodium 127 L (137-145) mmol/L Potassium 5.3 H (3.5-5.1) mmol/L Chloride 94 L (98-107) mmol/L Creatinine 0.54 L (0.66-1.25) mg/dL POC Glucose (mg/dL) (75-99) mg/dL Troponin I (0.000-0.034) ng/mL Total Protein (6.3-8.2) g/dL Albumin (3.5-5.0) g/dL 01/19/20 Range/Units 06:09 WBC (3.8-10.6) k/uL RBC (4.30-5.90) m/uL Hgb (13.0-17.5) gm/dL Hct (39.0-53.0) % RDW (11.5-15.5) % Neutrophils # (1.3-7.7) k/uL Lymphocytes # (1.0-4.8) k/uL APTT (22.0-30.0) sec D-Dimer (<0.60) mg/L FEU Sodium (137-145) mmol/L Potassium (3.5-5.1) mmol/L Chloride (98-107) mmol/L Creatinine (0.66-1.25) mg/dL POC Glucose (mg/dL) 113 H (75-99) mg/dL Troponin I (0.000-0.034) ng/mL Total Protein (6.3-8.2) g/dL Albumin (3.5-5.0) g/dL Diabetes panel 01/18/20 01/19/20 Range/Units 11:24 05:52 Sodium 124 L 127 L (137-145) mmol/L Potassium 4.8 5.3 H (3.5-5.1) mmol/L Chloride 88 L 94 L (98-107) mmol/L Carbon Dioxide 28 28 (22-30) mmol/L BUN 18 19 (9-20) mg/dL Creatinine 0.62 L 0.54 L (0.66-1.25) mg/dL Glucose 97 99 (74-99) mg/dL Calcium 9.4 8.6 (8.4-10.2) mg/dL AST 42 (17-59) U/L ALT 16 (4-49) U/L Alkaline Phosphatase 64 (38-126) U/L Total Protein 5.3 L (6.3-8.2) g/dL Albumin 3.1 L (3.5-5.0) g/dL Calcium panel 01/18/20 01/19/20 Range/Units 11:24 05:52 Calcium 9.4 8.6 (8.4-10.2) mg/dL Albumin 3.1 L (3.5-5.0) g/dL Pituitary panel 01/18/20 01/19/20 Range/Units 11:24 05:52 Sodium 124 L 127 L (137-145) mmol/L Potassium 4.8 5.3 H (3.5-5.1) mmol/L Chloride 88 L 94 L (98-107) mmol/L Carbon Dioxide 28 28 (22-30) mmol/L BUN 18 19 (9-20) mg/dL Creatinine 0.62 L 0.54 L (0.66-1.25) mg/dL Glucose 97 99 (74-99) mg/dL Calcium 9.4 8.6 (8.4-10.2) mg/dL Adrenal panel 01/18/20 01/19/20 Range/Units 11:24 05:52 Sodium 124 L 127 L (137-145) mmol/L Potassium 4.8 5.3 H (3.5-5.1) mmol/L Chloride 88 L 94 L (98-107) mmol/L Carbon Dioxide 28 28 (22-30) mmol/L BUN 18 19 (9-20) mg/dL Creatinine 0.62 L 0.54 L (0.66-1.25) mg/dL Glucose 97 99 (74-99) mg/dL Calcium 9.4 8.6 (8.4-10.2) mg/dL Total Bilirubin 0.6 (0.2-1.3) mg/dL AST 42 (17-59) U/L ALT 16 (4-49) U/L Alkaline Phosphatase 64 (38-126) U/L Total Protein 5.3 L (6.3-8.2) g/dL Albumin 3.1 L (3.5-5.0) g/dL <Parag Aceves - Last Filed: 01/19/20 16:35> History of Present Illness History of present illness: As above. Patient with suspicious mass left chest wall. This is actually similar in appearance to a nodule present in the right posterior shoulder region. The area on the breast was present for about 2 months while the area on the shoulder patient states has been present for about 6 months. Both appear suspicious for cutaneous metastasis. Will ask interventional radiology to proceed with a cutaneous biopsy left chest wall mass tomorrow. Patient obviously poor surgical candidate but biopsy will help family and the patient make decisions regarding extent of care moving forward. Patient was seen after his catheterization. Unable to fully examine the patient's back because of the bed rest. Will reevaluate further tomorrow. Surgical - Exam Vital Signs Temp Pulse Resp BP Pulse Ox 98.3 F 99 16 123/62 95 01/18/20 10:55 01/18/20 10:55 01/18/20 10:55 01/18/20 10:55 01/18/20 10:55 Results - Labs 01/19/20 05:52 01/19/20 05:52 Abnormal Lab Results - Last 24 Hours (Table) 01/18/20 01/18/20 01/18/20 Range/Units 16:49 20:26 21:23 RBC (4.30-5.90) m/uL Hgb (13.0-17.5) gm/dL Hct (39.0-53.0) % RDW (11.5-15.5) % Lymphocytes # (1.0-4.8) k/uL APTT (22.0-30.0) sec Sodium (137-145) mmol/L Potassium (3.5-5.1) mmol/L Chloride (98-107) mmol/L Creatinine (0.66-1.25) mg/dL POC Glucose (mg/dL) 144 H 172 H (75-99) mg/dL Troponin I 0.234 H* (0.000-0.034) ng/mL 01/18/20 01/19/2020 Range/Units 23:20 05:52 05:52 RBC 3.34 L (4.30-5.90) m/uL Hgb 9.9 L (13.0-17.5) gm/dL Hct 31.4 L (39.0-53.0) % RDW 21.8 H (11.5-15.5) % Lymphocytes # 0.3 L (1.0-4.8) k/uL APTT 39.4 H (22.0-30.0) sec Sodium 127 L (137-145) mmol/L Potassium 5.3 H (3.5-5.1) mmol/L Chloride 94 L (98-107) mmol/L Creatinine 0.54 L (0.66-1.25) mg/dL POC Glucose (mg/dL) (75-99) mg/dL Troponin I (0.000-0.034) ng/mL 01/19/20 01/19/20 01/19/20 Range/Units 05:52 06:09 12:05 RBC (4.30-5.90) m/uL Hgb (13.0-17.5) gm/dL Hct (39.0-53.0) % RDW (11.5-15.5) % Lymphocytes # (1.0-4.8) k/uL APTT 46.4 H (22.0-30.0) sec Sodium (137-145) mmol/L Potassium (3.5-5.1) mmol/L Chloride (98-107) mmol/L Creatinine (0.66-1.25) mg/dL POC Glucose (mg/dL) 113 H 110 H (75-99) mg/dL Troponin I (0.000-0.034) ng/mL Diabetes panel 01/19/20 Range/Units 05:52 Sodium 127 L (137-145) mmol/L Potassium 5.3 H (3.5-5.1) mmol/L Chloride 94 L (98-107) mmol/L Carbon Dioxide 28 (22-30) mmol/L BUN 19 (9-20) mg/dL Creatinine 0.54 L (0.66-1.25) mg/dL Glucose 99 (74-99) mg/dL Calcium 8.6 (8.4-10.2) mg/dL Calcium panel 01/19/20 Range/Units 05:52 Calcium 8.6 (8.4-10.2) mg/dL Pituitary panel 01/19/20 Range/Units 05:52 Sodium 127 L (137-145) mmol/L Potassium 5.3 H (3.5-5.1) mmol/L Chloride 94 L (98-107) mmol/L Carbon Dioxide 28 (22-30) mmol/L BUN 19 (9-20) mg/dL Creatinine 0.54 L (0.66-1.25) mg/dL Glucose 99 (74-99) mg/dL Calcium 8.6 (8.4-10.2) mg/dL Adrenal panel 01/19/20 Range/Units 05:52 Sodium 127 L (137-145) mmol/L Potassium 5.3 H (3.5-5.1) mmol/L Chloride 94 L (98-107) mmol/L Carbon Dioxide 28 (22-30) mmol/L BUN 19 (9-20) mg/dL Creatinine 0.54 L (0.66-1.25) mg/dL Glucose 99 (74-99) mg/dL Calcium 8.6 (8.4-10.2) mg/dL
--- NOTE | 2020-01-19 11:33 | ECHOF ---
Referral Reason:cp MEASUREMENTS -------- HEIGHT: 162.6 cm WEIGHT: 54.4 kg BP: 114/55 RVIDd: 3.3 cm (< 3.3) IVSd: 1.3 cm (0.6 - 1.1) LVIDd: 2.8 cm (3.9 - 5.3) LVPWd: 1.5 cm (0.6 - 1.1) IVSs: 1.4 cm LVIDs: 2.4 cm LVPWs: 1.7 cm LA Diam: 3.5 cm (2.7 - 3.8) LAESV Index (A-L): 22.37 ml/m Ao Diam: 3.0 cm (2.0 - 3.7) AV Cusp: 2.0 cm (1.5 - 2.6) MV EXCURSION: 20.477 mm (> 18.000) MV EF SLOPE: 148 mm/s (70 - 150) EPSS: 0.5 cm RAP: 5.00 mmHg RVSP: 23.59 mmHg FINDINGS -------- This was a technically adequate study. The left ventricular size is normal. There is mild concentric left ventricular hypertrophy. Overa ll left ventricular systolic function is moderate-severely impaired with, an EF between 30 - 35 %. Mid anterior LV wall motion is hypokinetic. Mid anteroseptal LV wall motion is hypokinetic. Api aleida anterior LV wall motion is hypokinetic. Apical lateral LV wall motion is akinetic. Apical s eptum LV wall motion is hypokinetic. [place] Hypokinesis. The right ventricle is normal in size. Normal LA size by volume 22+/-6 ml/m2. The right atrial size is normal. There is mild aortic valve sclerosis. The mitral valve is normal. Mild mitral regurgitation is present. Mild tricuspid regurgitation present. Right ventricular systolic pressure is normal at < 35 mmHg. There is no pulmonic regurgitation present. The aortic root size is normal. There is no pericardial effusion. CONCLUSIONS -------- 1. There is mild concentric left ventricular hypertrophy. 2. Overall left ventricular systolic function is moderate-severely impaired with, an EF between 30 - 35 %. 3. Mid anterior LV wall motion is hypokinetic. 4. Mid anteroseptal LV wall motion is hypokinetic. 5. Apical anterior LV wall motion is hypokinetic. 6. Apical lateral LV wall motion is akinetic. 7. Apical septum LV wall motion is hypokinetic. 8. [place] Hypokinesis. 9. Normal LA size by volume 22+/-6 ml/m2. 10. There is mild aortic valve sclerosis. 11. Mild mitral regurgitation is present. 12. Mild tricuspid regurgitation present. 13. There is no pericardial effusion. TURNTABLE OPERATOR: Susie Graham RDCS
[2020-01-19] MEDS ORDERED: ATORVASTATIN 40 MG TAB PO STA (11:35)
[2020-01-19 12:06] LABS: Glucose,Whole Blood 110 mg/dL (75-99)
[2020-01-19] MEDS ORDERED: SODIUM CHLORIDE 0.9% 1,000 ML IV ONE (13:24)
[2020-01-19] MEDS ORDERED: MIDAZOLAM 2 MG/2 ML VIAL IVP ONE (13:30)
[2020-01-19] MEDS ORDERED: LIDOCAINE 1% INJ 10MG/ML (20 ML MDV) SQ ONE ×2 (13:33→13:40)
[2020-01-19] MEDS ORDERED: METOPROLOL TARTRATE 5 MG/5 ML VIAL IVP ONE ×2 (13:45→13:47)
[2020-01-19] MEDS ORDERED: IOPAMIDOL-370 100ML BTL INJ ONE (13:51)
--- NOTE | 2020-01-19 15:29 | CONS ---
CONSULTATION Glen Saucedo is an unfortunate 74-year-old gentleman with multiple medical problems in the form of alcoholism and smoking. He quit smoking 2 years ago, has severe COPD with recurrent exacerbations. He still drinks alcohol but not that heavily. He came into the hospital with increasing shortness of breath and also cough with sputum production. He was admitted to the hospital with a diagnosis of exacerbation of COPD. However, there was a mild troponin elevation. There is also evidence of precordial T- wave inversion suggestive of ischemia. He did not have any chest discomfort. His main complaint was shortness of breath, which seems to have improved somewhat with steroids and breathing treatments. He is in the bed. He looks emaciated, malnourished. Denies chest discomfort, but has significant EKG changes, and echo also revealed anteroapical septal hypokinesia. Possibility of a Takotsubo syndrome cannot be excluded, but there is clear evidence of ischemic changes on the EKG. PAST MEDICAL HISTORY: 1. Alcoholism. 2. Smoking, COPD. He quit smoking 2 years ago. 3. Status post appendectomy. 4. End-stage COPD, on home oxygen. MEDICATIONS: Medications at home: He takes multiple inhalers. He also takes albuterol inhaler, vitamin supplements. ALLERGIES: NONE. REVIEW OF SYSTEMS: Unremarkable other than above-mentioned facts. PHYSICAL EXAMINATION: On examination, blood pressure is 114/70, pulse rate is 80 per minute, regular. HEENT unremarkable. Fundus was not examined by me. Neck is supple. There is JVD of 1 cm. No carotid bruit. Heart exam reveals S1, S2 with some tachycardia. Rhythm appears to be regular. There is a lot of respiratory interference on auscultation. There is evidence of a short systolic murmur. Lungs reveal diminished air entry in bilateral lung torres with scattered rhonchi. Abdomen is soft, nontender. Lower extremities reveal diminished pulses. Central nervous system: Generalized weakness. No focal deficits. LABORATORY DATA: Laboratory data reveal that his troponin initially was 0.2, went up to 0.3. His BNP is also up to 26,000. D-dimer was elevated at 2.86. He had a CT angiogram performed yesterday, and this study did not reveal any evidence of pulmonary embolism. There is a right upper lobe lung mass noted. Aorta was visualized in a limited fashion. It does not appear to have any significant problem. There are some coronary calcifications. EKG revealed sinus mechanism with precordial T-wave inversion suggestive of subendocardial ischemia. IMPRESSION: 1. Eix-FU-[id number] myocardial infarction. Cannot exclude Takotsubo. 2. Chronic obstructive pulmonary disease with exacerbation. 3. Alcoholism. 4. Malnourishment. RECOMMENDATIONS: I am recommending that we continue current medications. I will recommend that we proceed with coronary angiography to look for any obstructive CAD. I discussed my thoughts in detail with the patient and also talked to his son, Gael, who is a aids social worker here. They understand all details, including the risks, benefits, options, and wish to proceed with the procedure. I will place him on Lipitor. Aspirin will be 81 mg daily. We will also place him on 0.9 saline at 75 mL/hour and proceed with coronary angiography. I discussed my thoughts in detail with the patient and his son. They understand the rationale, risks, benefits, options and wish to proceed with cardiac catheterization. MMODL / IJN: [id number] /
--- NOTE | 2020-01-19 16:00 | P.PN ---
Subjective Progress Note Date: 01/19/20 Principal diagnosis: 74-year-old male patient with advanced COPD with a baseline FEV1 of 24% of predicted, and a total lung capacity of 127% of predicted and diffusion capacity of 23% of predicted consistent with severe advanced COPD. The patient has been followed up in our office. The patient has been maintained on Trelegy Ellipta as maintenance in addition to her maintenance prednisone of 10 mg on a daily basis and oxygen 2 L/m 24 7. The patient has a portable concentrator. The patient also has known scar in the right apical area which needs to be monitored. Based on his advanced comorbidities and advanced COPD, no further workup has been done regarding this abnormal opacity/scar in the right upper lobe. Note that he has diffuse emphysema with upper lobe predominance and there is no mediastinal lymphadenopathy. His last hospitalization for COPD exacerbation was back in 2018. The patient comes into the MRSA problem because of worsening shortness of breath and increased cough and increased sputum production. His primary medical doctor wanted to come into the hospital to be evaluated. He has no fever. Has no chills. No nausea vomiting or abdominal pain. He has significant limitation of exercise capacity secondary to advanced COPD. He denies having any swelling in lower extremities. He denied having any calf pain or tenderness. A CT angios and was done in the [facility] that showed no evidence of any pulmonary embolism. There was diffuse emphysema and as for the right upper lobe opacity, this was again seen at the pleural-based lesion that has increased in size compared to the previous CAT scan from 10/23/2018. It showed some spiculation and it was measuring 2.4 x 2.4 x 2.1 cm in size. There is some scarring in the lung bases bilaterally. There is extensive edematous changes throughout the lung torres bilaterally. There is also a left breast opacity noted. The EKG was consistent with sinus tachycardia with occasional PVCs. There were T-wave inversions that would raise the possibility of an underlying anterolateral ischemia. No ST segment elevations. The patient had abnormalities and troponin with levels being 0.387 and 0.331 respectively 2. His sodium level came up 124. White cell count 11.2 with a hemoglobin of 11.0 and a platelet count of 385. On 01/19/2020 patient seen in follow-up on selective care unit, patient is resting in bed, remains on high flow oxygen currently at 6 L, his pulse ox of 93-99%, she still gets very short of breath with exertion, conversation, occasional cough, with no phlegm production. Denies chest pain, patient had elevation of his troponins, cardiology is following, and patient is scheduled for cardiac catheterization today. Echocardiogram has been taken, report is pending, patient is on 0.9 normal saline at a rate of 75 ML per hour, heparin infusion per weight-based protocol. Today's labs have been reviewed, showing low blood cell, 4.0, hemoglobin is 9.9, serum sodium has slightly improved on today's labs, and is up to 127, potassium is 5.3, chloride is 94, BUN is 19, creatinine is 0.54, [place] [address]. His echocardiogram showed mild concentric LVH, moderate to severe impairment of his left ventricular systolic function with an EF of 30-35%, mild mitral regurg, mild tricuspid regurg. No evidence of pulmonary hypertension. Objective - Vital Signs Vital signs: Vital Signs Temp 97.7 F 01/19/20 04:42 Pulse 105 H 01/19/20 12:00 Resp 20 01/19/20 12:00 BP 115/56 01/19/20 12:00 Pulse Ox 93 L 01/19/20 12:00 Intake & Output 01/18/20 01/19/20 01/19/20 18:59 06:59 18:59 Intake Total 621.86 75 Output Total 225 Balance 396.86 75 Weight 54.431 kg 54.5 kg 54.5 kg Intake: Intake, IV Titration 381.86 75 Amount Heparin Sod,Pork in 0.45% 81.86 NaCl 25,000 unit In 0.45 % NaCl 1 250ml.bag @ 12 UNITS/KG/HR 6.532 mls/hr IV .Q24H KEVIN Rx#: [id number] Sodium Chloride 0.9% 1, 300 75 000 ml @ 75 mls/hr IV . [id number] KEVIN Rx#:[id number] Oral 240 Output: Urine 225 - Exam GENERAL EXAM: Alert, very pleasant, 74-year-old white male, on 6 L per high flow oxygen, with a pulse ox of 93% comfortable in no apparent distress. HEAD: Normocephalic/atraumatic. EYES: Normal reaction of pupils, equal size. Conjunctiva pink, sclera white. NOSE: Clear with pink turbinates. THROAT: No erythema or exudates. NECK: No masses, no JVD, no thyroid enlargement, no adenopathy. CHEST: No chest wall deformity. Symmetrical expansion. Left breast firm irregular lesion, and right posterior neck and upper back area firm irregular lesion LUNGS: Equal air entry with few scattered wheezes CVS: Regular rate and rhythm, normal S1 and S2, no gallops, no murmurs, no rubs ABDOMEN: Soft, nontender. No hepatosplenomegaly, normal bowel sounds, no guard ing or rigidity. EXTREMITIES: No clubbing, no edema, no cyanosis, 2+ pulses and upper and lower extremities. MUSCULOSKELETAL: Muscle strength and tone normal. SPINE: No scoliosis or deformity SKIN: No rashes CENTRAL NERVOUS SYSTEM: Alert and oriented -3. No focal deficits, tone is normal in all 4 extremities. PSYCHIATRIC: Alert and oriented -3. Appropriate affect. Intact judgment and insight. - Labs CBC & Chem 7: 01/19/20 05:52 01/19/20 05:52 Labs: Abnormal Lab Results - Last 24 Hours (Table) 01/18/20 01/18/20 01/18/20 Range/Units 15:09 16:49 20:26 RBC (4.30-5.90) m/uL Hgb (13.0-17.5) gm/dL Hct (39.0-53.0) % RDW (11.5-15.5) % Lymphocytes # (1.0-4.8) k/uL APTT (22.0-30.0) sec Sodium (137-145) mmol/L Potassium (3.5-5.1) mmol/L Chloride (98-107) mmol/L Creatinine (0.66-1.25) mg/dL POC Glucose (mg/dL) 144 H 172 H (75-99) mg/dL Troponin I 0.331 H* (0.000-0.034) ng/mL 01/18/20 01/18/20 01/19/20 Range/Units 21:23 23:20 05:52 RBC 3.34 L (4.30-5.90) m/uL Hgb 9.9 L (13.0-17.5) gm/dL Hct 31.4 L (39.0-53.0) % RDW 21.8 H (11.5-15.5) % Lymphocytes # 0.3 L (1.0-4.8) k/uL APTT 39.4 H (22.0-30.0) sec Sodium (137-145) mmol/L Potassium (3.5-5.1) mmol/L Chloride (98-107) mmol/L Creatinine (0.66-1.25) mg/dL POC Glucose (mg/dL) (75-99) mg/dL Troponin I 0.234 H* (0.000-0.034) ng/mL 01/19/20 01/19/20 01/19/20 Range/Units 05:52 05:52 06:09 RBC (4.30-5.90) m/uL Hgb (13.0-17.5) gm/dL Hct (39.0-53.0) % RDW (11.5-15.5) % Lymphocytes # (1.0-4.8) k/uL APTT 46.4 H (22.0-30.0) sec Sodium 127 L (137-145) mmol/L Potassium 5.3 H (3.5-5.1) mmol/L Chloride 94 L (98-107) mmol/L Creatinine 0.54 L (0.66-1.25) mg/dL POC Glucose (mg/dL) 113 H (75-99) mg/dL Troponin I (0.000-0.034) ng/mL 01/19/20 Range/Units 12:05 RBC (4.30-5.90) m/uL Hgb (13.0-17.5) gm/dL Hct (39.0-53.0) % RDW (11.5-15.5) % Lymphocytes # (1.0-4.8) k/uL APTT (22.0-30.0) sec Sodium (137-145) mmol/L Potassium (3.5-5.1) mmol/L Chloride (98-107) mmol/L Creatinine (0.66-1.25) mg/dL POC Glucose (mg/dL) 110 H (75-99) mg/dL Troponin I (0.000-0.034) ng/mL Assessment and Plan Plan: Assessment: 1 acute exacerbation of COPD, with secondary shortness of breath. 2 severe COPD, steroid-dependent and patient has been oxygen dependent and the patient has been on urology Trelegy Ellipta as maintenance regarding his advanced COPD. 3 chronic hypoxic respiratory failure maintained on 2 L of oxygen by nasal cannula 4 cachexia with significant loss in total body muscle and fat mass and his current BMI 20.6 5 right upper lobe enlarging spiculated opacity/scar which has grown in size compared to the previous CAT scan from 2018. His ability of malignancy cannot be completely excluded in the right upper lobe. Nevertheless, this is a limited growth over the past one half years which makes me consider the possibility of an indolent or a slow-growing tumor. 6 acute non-STEMI with diffuse T-wave inversion positive troponins, currently on IV heparin 7 history of hemachromatosis with previous history of phlebotomy. 8 hyponatremia, hypochloremia 9 suspected a breast mass, surgical consultation was requested 10 cardiomyopathy, possibly ischemic, echo showed moderate to severe impairment of left ventricular systolic function and EF of 30-35%, mild MR, mild TR, no evidence of pulmonary hypertension Plan: Continue with current medical treatment, bronchodilators and IV steroids, patient is awaiting heart catheterization today, surgical consultation was requested in regards to the left breast mass. His right upper lobe enlarging spiculated opacity/scar changes were discussed with the patient's son, patient is a poor candidate for bronchoscopy with biopsy, and poor candidate for any treatment, no plans for bronchoscopy. We'll continue to closely follow with ca rdiology. We'll continue supportive treatment for his COPD I performed a history & physical examination of the patient and discussed their management with my nurse practitioner, Jeny Moreno. I reviewed the nurse practitioner's note and agree with the documented findings and plan of care. Lung sounds are positive for a few scattered wheezes. The findings and the impression was discussed with the patient. I attest to the documentation by the nurse practitioner. Time with Patient: Less than 30
--- NOTE | 2020-01-19 16:54 | CC ---
CARDIAC CATHETERIZATION REPORT DATE OF SERVICE: 01/19/2020 PROCEDURE: Left heart catheterization and coronary angiography. PERFORMED BY: Dr. Jules Cha. Moderate conscious sedation time was 21 minutes. Patient was administered Versed. Oxygen saturation, hemodynamics and EKG were monitored closely. CLINICAL INFORMATION: Mr. Glen Saucedo is a 74-year-old gentleman with history of alcoholism and smoking who came into the hospital with shortness of breath and exacerbation of COPD, precordial T-wave inversion with a troponin elevation suggestive of a [id number] NH. The clinical picture suggested that of a Takotsubo syndrome. However, he had ongoing symptoms of chest tightness, pressure and EKG changes. Therefore he was advised cardiac cath after due discussion regarding risks, benefits and options. PROCEDURE NOTE: Initially I attempted right radial but did not get any access; switched over to right femoral. A 6-Uzbek introducer was placed in the right femoral artery under strict aseptic precautions and local anesthesia. Standard Luana catheters were used, and the same right Luana catheter was used to check LV pressures. LV gram was not performed. The sheath was taken out and Angio-Seal device used to secure hemostasis and he was sent to the room in stable condition. CARDIAC CATHETERIZATION FINDINGS: Left end-diastolic pressure was 20 mmHg without any gradient across the aortic valve. CORONARY ANGIOGRAPHY FINDINGS: RIGHT CORONARY ARTERY: Large dominant vessel has no significant disease in the proximal or mid portion and distally gives off a large PDA. PLV is very small. No significant disease in the RCA. Minor irregularities are noted. LEFT MAIN CORONARY ARTERY: Short, patent, disease-free vessel that bifurcates into LAD and circumflex. LEFT ANTERIOR DESCENDING CORONARY ARTERY: Good-caliber vessel extends along the anterior wall. No significant disease, gives off good-sized diagonal branches, two of them. There is moderate calcification in the coronary arteries, but no significant obstructive disease. The second diagonal had a 40% lesion at its ostium. The entire LAD has minor irregularities. Distal LAD has diffuse disease. No significant disease in the LAD system. LEFT POSTERIOR CIRCUMFLEX CORONARY ARTERY: Technically a nondominant vessel gives off a single obtuse marginal, runs in the AV groove, has minor irregularities. No significant disease. FINAL IMPRESSION: This patient has calcified coronary arteries, a right-dominant system, elevated filling pressures. No gradient across aortic valve. Calcified LAD in multiple areas, but no significant obstructive disease. A 40% second diagonal disease noted. Right has minor irregularities. Circumflex is free of significant disease. End-diastolic pressure is elevated. RECOMMENDATIONS: Findings were discussed with the patient and family. 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 Will treat him medically. Discussed with the patient, his and his son. MMYAMILA / TAJN: [id number] /
[2020-01-19 17:11] LABS: Glucose,Whole Blood 158 mg/dL (75-99)
[2020-01-19] MEDS: HEPARIN SOD,PORK IN 0.45% NACL 25,000 UNIT in 0.45% NACL 1 250ML.BAG IV SCH (17:46)
[2020-01-19 20:48] LABS: Glucose,Whole Blood 190 mg/dL (75-99)
[2020-01-19] MEDS: METOPROLOL TARTRATE 25 MG TAB PO SCH (22:14)
[2020-01-19] MEDS: FUROSEMIDE 10 MG/ML 2 ML VIAL IV SCH (22:14)
[2020-01-19] MEDS: LOSARTAN 25 MG TAB PO SCH (22:14)
--- NOTE | 2020-01-19 23:10 | P.PN ---
Subjective Progress Note Date: 01/19/20 Principal diagnosis: Acute COPD exac NSTEMI Patient is a 74-year-old male with a known history of COPD, chronic hypoxic respiratory failure on home oxygen and steroid-dependent, bilateral lower extremity edema, hematochromatosis and previous history of smoking and other medical problems presents to ER with complaints of worsening shortness of breath cough and increased sputum production. Patient was seen by his primary care physician and sent him to ER. Otherwise patient denied any complaints of chest pain. No headache or dizziness or lightheadedness. No fever no chills. No recent illnesses. No nausea vomiting or abdominal pain or diarrhea. Patient also states that his right leg is chronically swollen than the left. Denied any calf pain. Denied any history of blood clots. Chest x-ray showed vague basilar interstitial infiltrates are suggested. C orrelate for developing pneumonia. CT angiogram of the chest was done showed interval increase in size in the right upper lobe lung mass. Left breast mass. Emphysema. No evidence of pulmonary embolus. Small effusions and associated atelectasis, interstitial lung disease. Borderline aortic aneurysm. EKG showed T wave inversions in the lateral leads. Sinus tachycardia. PVCs. Laboratory data showed WBC 11.2, hemoglobin 11.0, RDW 22, sodium 124, potassium 4.8, chloride 488, BUN 18 and creatinine 0.62 Troponin 0 0.387, 0.331, 0.234 Albumin 3.1 Lactic acid level is 1.7 01/19/2020 Patient is currently lying in the bed resting having dyspnea and also requiring oxygen at 6 L via nasal cannula. Patient still gets very dyspneic with exertion. Occasional cough. No sputum production. Patient had cardiac catheterization done today showed nonobstructive coronaries. Patient has orthopnea requiring elevation of the head of the bed. Laboratory data showed WBC 4.0, hemoglobin 9.9, RDW 1366, sodium 127, potassium 5.3 Chloride 94 BUN 19 and creatinine 0.54 proBNP is 26 100 2D echocardiogram showed overall left ventricular systolic function is moderate to severely impaired. Ejection fraction 30 to 35%. Current medications reviewed. Objective - Vital Signs Vital signs: Vital Signs Temp 97.7 F 01/19/20 04:42 Pulse 105 H 01/19/20 12:00 Resp 20 01/19/20 12:00 BP 115/56 01/19/20 12:00 Pulse Ox 93 L 01/19/20 12:00 Intake & Output 01/18/20 01/19/20 01/19/20 18:59 06:59 18:59 Intake Total 621.86 75 Output Total 225 Balance 396.86 75 Weight 54.431 kg 54.5 kg 54.5 kg Intake: Intake, IV Titration 381.86 75 Amount Heparin Sod,Pork in 0.45% 81.86 NaCl 25,000 unit In 0.45 % NaCl 1 250ml.bag @ 12 UNITS/KG/HR 6.532 mls/hr IV .Q24H KEVIN Rx#: [id number] Sodium Chloride 0.9% 1, 300 75 000 ml @ 75 mls/hr IV . [id number] KEVIN Rx#:[id number] Oral 240 Output: Urine 225 - Exam PHYSICAL EXAMINATION: Patient is lying in the bed comfortably, no acute distress, awake alert and oriented.. HEENT: Normocephalic. Neck is supple. Pupils reactive. Nostrils clear. Oral cavity is moist. Ears reveal no drainage. Neck reveals no JVD, carotid bruits, or thyromegaly. CHEST EXAMINATION: Trachea is central. Symmetrical expansion. Bilateral diffuse wheezing and rhonchi. Bibasilar diminished air entry.. CARDIAC: Normal S1, S2 with no gallops. No murmurs ABDOMEN: Soft. Bowel sounds normal. No organomegaly. No abdominal bruits. Extremities: 2+ edema.. No clubbing or cyanosis Neurologically awake, alert, oriented x3 with well-coordinated movements. No focal deficits noted Skin: No rash or skin lesions. Psychiatric: Coperative. Nonsuicidal Musculoskeletal: No joint swelling or deformity. Normal range of motion. - Labs CBC & Chem 7: 01/19/20 05:52 01/19/20 05:52 Labs: Abnormal Lab Results - Last 24 Hours (Table) 01/18/20 01/18/20 01/18/20 Range/Units 15:09 16:49 20:26 RBC (4.30-5.90) m/uL Hgb (13.0-17.5) gm/dL Hct (39.0-53.0) % RDW (11.5-15.5) % Lymphocytes # (1.0-4.8) k/uL APTT (22.0-30.0) sec Sodium (137-145) mmol/L Potassium (3.5-5.1) mmol/L Chloride (98-107) mmol/L Creatinine (0.66-1.25) mg/dL POC Glucose (mg/dL) 144 H 172 H (75-99) mg/dL Troponin I 0.331 H* (0.000-0.034) ng/mL 01/18/20 01/18/20 01/19/20 Range/Units 21:23 23:20 05:52 RBC 3.34 L (4.30-5.90) m/uL Hgb 9.9 L (13.0-17.5) gm/dL Hct 31.4 L (39.0-53.0) % RDW 21.8 H (11.5-15.5) % Lymphocytes # 0.3 L (1.0-4.8) k/uL APTT 39.4 H (22.0-30.0) sec Sodium (137-145) mmol/L Potassium (3.5-5.1) mmol/L Chloride (98-107) mmol/L Creatinine (0.66-1.25) mg/dL POC Glucose (mg/dL) (75-99) mg/dL Troponin I 0.234 H* (0.000-0.034) ng/mL 01/19/20 01/19/20 01/19/20 Range/Units 05:52 05:52 06:09 RBC (4.30-5.90) m/uL Hgb (13.0-17.5) gm/dL Hct (39.0-53.0) % RDW (11.5-15.5) % Lymphocytes # (1.0-4.8) k/uL APTT 46.4 H (22.0-30.0) sec Sodium 127 L (137-145) mmol/L Potassium 5.3 H (3.5-5.1) mmol/L Chloride 94 L (98-107) mmol/L Creatinine 0.54 L (0.66-1.25) mg/dL POC Glucose (mg/dL) 113 H (75-99) mg/dL Troponin I (0.000-0.034) ng/mL 01/19/20 Range/Units 12:05 RBC (4.30-5.90) m/uL Hgb (13.0-17.5) gm/dL Hct (39.0-53.0) % RDW (11.5-15.5) % Lymphocytes # (1.0-4.8) k/uL APTT (22.0-30.0) sec Sodium (137-145) mmol/L Potassium (3.5-5.1) mmol/L Chloride (98-107) mmol/L Creatinine (0.66-1.25) mg/dL POC Glucose (mg/dL) 110 H (75-99) mg/dL Troponin I (0.000-0.034) ng/mL Assessment and Plan Assessment: Shortness of breath secondary to acute COPD exacerbation and also interval increase in the right upper lobe mass and CHF Severe COPD on home oxygen and steroid-dependent Acute CHF with systolic dysfunction ejection fraction 35 to 30% Acute non-ST elevated MA with elevated troponin level. Trending down now. Chronic hypoxic respiratory failure secondary to COPD currently on 2 L oxygen via nasal cannula at home. Right upper lobe lung mass increasing in size Left breast mass shown in the CT chest HyponatremiaLikely hypovolemic gentle IV hydration. Moderate protein calorie malnutrition History of hematochromatosis Previous history of smoking DVT prophylaxis. Patient is currently on heparin drip. Plan: Patient will be continued on duo nebs, IV steroids and oxygen therapy.Patient was started on aspirin, statins, Lasix 20 mg IV twice daily. Patient is status post cardiac catheterization. Pulmonary and cardiology is following. Patient will was seen by pulmonary and recommended outpatient work-up for right upper lobe mass. Prognosis guarded with multiple medical problems and comorbid conditions. Time with Patient: Greater than 30
[2020-01-20] MEDS: HEPARIN SODIUM,PORCINE 5,000 UNIT/ML 1 ML VIAL SQ SCH ×4 (00:21→23:09)
[2020-01-20 06:12] LABS: Anisocytosis Moderate; Basophils % (A) 0 %; Eosinophils % (A) 0 %; HCT 31.2 % (39.0-53.0); HGB 9.9 gm/dL (13.0-17.5); Hypochromasia Marked; Lymphocytes # (A) 0.2 k/uL (1.0-4.8); Lymphocytes % (A) 2 %; MCH 29.9 pg (25.0-35.0); MCHC 31.6 g/dL (31.0-37.0); MCV 94.5 fL (80.0-100.0); Macrocytosis Slight; Mean Platelet Volume 7.1; Monocytes # (A) 0.7 k/uL (0-1.0); Monocytes % (A) 5 %; Neutrophils % (A) 93 %; Platelet Count 491 k/uL (150-450); RBC 3.31 m/uL (4.30-5.90); RDW 21.7 % (11.5-15.5)
[2020-01-20 06:21] LABS: African American GFR (CKD) >90 (>60 ml/min/1.73 sqM); Anion Gap 7 mmol/L; Blood Urea Nitrogen 25 mg/dL (9-20); Calcium 9.2 mg/dL (8.4-10.2); Carbon Dioxide 27 mmol/L (22-30); Chloride 96 mmol/L (98-107); Glucose 108 mg/dL (74-99); Non-African American GFR(CKD) >90 (>60 ml/min/1.73 sqM); Potassium 4.8 mmol/L (3.5-5.1); Sodium 130 mmol/L (137-145)
[2020-01-20 06:22] LABS: Glucose,Whole Blood 137 mg/dL (75-99)
[2020-01-20] MEDS: INSULIN ASPART (NovoLOG) 100 UNIT/ML VIAL SQ SCH ×4 (06:53→20:36)
[2020-01-20] MEDS: methylPREDNISolone SOD SUCCI 40 MG/ML 1 ML VIAL IV SCH (08:32)
[2020-01-20] MEDS: ASPIRIN 81 MG PO SCH (08:32)
[2020-01-20] MEDS: METOPROLOL TARTRATE 25 MG TAB PO SCH ×2 (08:32→20:35)
[2020-01-20] MEDS: FUROSEMIDE 10 MG/ML 2 ML VIAL IV SCH ×2 (08:33→20:36)
[2020-01-20] MEDS: IPRATROPIUM-ALBUTEROL 3 ML NEB INHALATION PRN ×4 (08:49→20:41)
--- NOTE | 2020-01-20 10:21 | P.PN ---
<Anna Garcia A - Last Filed: 01/20/20 10:15> Subjective Progress Note Date: 01/20/20 CHIEF COMPLAINT: Left breast mass HISTORY OF PRESENT ILLNESS: Patient examined this morning at the bedside. He underwent cardiac cath yesterday revealing no significant obstructive disease an d medical management was recommended. Denies pain or discomfort to left breast mass. Tolerating diet. Patient remains on 5L NC. HR 100s. Afebrile. PHYSICAL EXAM: VITAL SIGNS: Reviewed. GENERAL: Well-developed in no acute distress. HEENT: No sclera icterus. Extraocular movements grossly intact. Moist buccal mucosa. Head is atraumatic, normocephalic. ABDOMEN: Soft. Nondistended. Nontender. NEUROLOGIC: Alert and oriented. Cranial nerves II through XII grossly intact. CHEST: Left breast with approximately 1 inch x 1 inch palpable firm nonmobile mass located at approximately the 11oclock position. There is hyperpigmentation of the skin surrounding this mass as well as some minimal skin retraction. No palpable axillary adenopathy. ASSESSMENT: 1. Left breast mass PLAN: Consult placed to interventional radiology for biopsy of left chest/breast mass Nurse practitioner note has been reviewed by physician. Signing provider agrees with the documented findings, assessment, and plan of care. Objective - Vital Signs Vital signs: Vital Signs Temp 97.8 F 01/20/20 04:27 Pulse 100 01/20/20 09:01 Resp 20 01/20/20 08:00 BP 117/56 01/20/20 08:00 Pulse Ox 91 L 01/20/20 08:00 Intake & Output 01/19/20 01/20/20 01/20/20 18:59 06:59 18:59 Intake Total 295 360 Output Total 675 Balance 295 -315 Weight 54.5 kg 55.5 kg Intake: IV 100 Intake, IV Titration 75 Amount Sodium Chloride 0.9% 1, 75 000 ml @ 75 mls/hr IV . [id number] [facility] Rx#:[id number] Oral 120 360 Output: Urine 675 Other: # Voids 0 - Labs CBC & Chem 7: 01/20/20 05:23 01/20/20 05:23 Labs: Abnormal Lab Results - Last 24 Hours (Table) 01/19/20 01/19/20 01/19/20 Range/Units 12:05 17:10 20:46 WBC (3.8-10.6) k/uL RBC (4.30-5.90) m/uL Hgb (13.0-17.5) gm/dL Hct (39.0-53.0) % RDW (11.5-15.5) % Plt Count (150-450) k/uL Neutrophils # (1.3-7.7) k/uL Lymphocytes # (1.0-4.8) k/uL Sodium (137-145) mmol/L Chloride (98-107) mmol/L BUN (9-20) mg/dL Creatinine (0.66-1.25) mg/dL Glucose (74-99) mg/dL POC Glucose (mg/dL) 110 H 158 H 190 H (75-99) mg/dL 01/20/20 01/20/20 01/20/20 Range/Units 05:23 05:23 06:20 WBC 14.0 H (3.8-10.6) k/uL RBC 3.31 L (4.30-5.90) m/uL Hgb 9.9 L (13.0-17.5) gm/dL Hct 31.2 L (39.0-53.0) % RDW 21.7 H (11.5-15.5) % Plt Count 491 H (150-450) k/uL Neutrophils # 13.0 H (1.3-7.7) k/uL Lymphocytes # 0.2 L (1.0-4.8) k/uL Sodium 130 L (137-145) mmol/L Chloride 96 L (98-107) mmol/L BUN 25 H (9-20) mg/dL Creatinine 0.56 L (0.66-1.25) mg/dL Glucose 108 H (74-99) mg/dL POC Glucose (mg/dL) 137 H (75-99) mg/dL <Parag Aceves - Last Filed: 01/20/20 13:55> Subjective As above. Patient examined further. No additional subcutaneous nodules other than the one on the posterior right shoulder and the left chest wall. Await percutaneous biopsy. Will follow. Objective - Vital Signs Vital signs: Vital Signs Temp 97.8 F 01/20/20 04:27 Pulse 104 H 01/20/20 12:07 Resp 20 01/20/20 12:00 BP 113/65 01/20/20 12:00 Pulse Ox 95 01/20/20 12:00 Intake & Output 01/19/20 01/20/20 01/20/20 18:59 06:59 18:59 Intake Total 295 360 Output Total 675 150 Balance 295 -315 -150 Weight 54.5 kg 55.5 kg 55.5 kg Intake: IV 100 Intake, IV Titration 75 Amount Sodium Chloride 0.9% 1, 75 000 ml @ 75 mls/hr IV . [id number] [facility] Rx#:[id number] Oral 120 360 Output: Urine 675 150 Other: # Voids 0 1 - Labs CBC & Chem 7: 01/20/20 05:23 01/20/20 05:23 Labs: Abnormal Lab Results - Last 24 Hours (Table) 01/19/20 01/19/20 01/20/20 Range/Units 17:10 20:46 05:23 WBC 14.0 H (3.8-10.6) k/uL RBC 3.31 L (4.30-5.90) m/uL Hgb 9.9 L (13.0-17.5) gm/dL Hct 31.2 L (39.0-53.0) % RDW 21.7 H (11.5-15.5) % Plt Count 491 H (150-450) k/uL Neutrophils # 13.0 H (1.3-7.7) k/uL Lymphocytes # 0.2 L (1.0-4.8) k/uL Sodium (137-145) mmol/L Chloride (98-107) mmol/L BUN (9-20) mg/dL Creatinine (0.66-1.25) mg/dL Glucose (74-99) mg/dL POC Glucose (mg/dL) 158 H 190 H (75-99) mg/dL 01/20/20 01/20/20 01/20/20 Range/Units 05:23 06:20 11:57 WBC (3.8-10.6) k/uL RBC (4.30-5.90) m/uL Hgb (13.0-17.5) gm/dL Hct (39.0-53.0) % RDW (11.5-15.5) % Plt Count (150-450) k/uL Neutrophils # (1.3-7.7) k/uL Lymphocytes # (1.0-4.8) k/uL Sodium 130 L (137-145) mmol/L Chloride 96 L (98-107) mmol/L BUN 25 H (9-20) mg/dL Creatinine 0.56 L (0.66-1.25) mg/dL Glucose 108 H (74-99) mg/dL POC Glucose (mg/dL) 137 H 132 H (75-99) mg/dL
[2020-01-20 11:58] LABS: Glucose,Whole Blood 132 mg/dL (75-99)
--- NOTE | 2020-01-20 12:18 | P.PN ---
Subjective Progress Note Date: 01/20/20 Principal diagnosis: Acute exacerbation of chronic obstructive pulmonary disease 74-year-old male patient with advanced COPD with a baseline FEV1 of 24% of predicted, and a total lung capacity of 127% of predicted and diffusion capacity of 23% of predicted consistent with severe advanced COPD. The patient has been followed up in our office. The patient has been maintained on Trelegy Ellipta as maintenance in addition to her maintenance prednisone of 10 mg on a daily basis and oxygen 2 L/m 24 7. The patient has a portable concentrator. The patient also has known scar in the right apical area which needs to be monitored. Based on his advanced comorbidities and advanced COPD, no further workup has been done regarding this abnormal opacity/scar in the right upper lobe. Note that he has diffuse emphysema with upper lobe predominance and there is no mediastinal lymphadenopathy. His last hospitalization for COPD exacerbation was back in 2018. The patient comes into the MRSA problem because of worsening shortness of breath and increased cough and increased sputum production. His primary medical doctor wanted to come into the hospital to be evaluated. He has no fever. Has no chills. No nausea vomiting or abdominal pain. He has significant limitation of exercise capacity secondary to advanced COPD. He denies having any swelling in lower extremities. He denied having any calf pain or tenderness. A CT angios and was done in the [facility] that showed no evidence of any pulmonary embolism. There was diffuse emphysema and as for the right upper lobe opacity, this was again seen at the pleural-based lesion that has increased in size compared to the previous CAT scan from 10/23/2018. It showed some spiculation and it was measuring 2.4 x 2.4 x 2.1 cm in size. There is some scarring in the lung bases bilaterally. There is extensive edematous changes throughout the lung torres bilaterally. There is also a left breast opacity noted. The EKG was consistent with sinus tachycardia with occasional PVCs. There were T-wave inversions that would raise the possibility of an underlying anterolateral ischemia. No ST segment elevations. The patient had abnormalities and troponin with levels being 0.387 and 0.331 respectively 2. His sodium level came up 124. White cell count 11.2 with a hemoglobin of 11.0 and a platelet count of 385. On 01/19/2020 patient seen in follow-up on selective care unit, patient is resting in bed, remains on high flow oxygen currently at 6 L, his pulse ox of 93-99%, she still gets very short of breath with exertion, conversation, occasional cough, with no phlegm production. Denies chest pain, patient had e levation of his troponins, cardiology is following, and patient is scheduled for cardiac catheterization today. Echocardiogram has been taken, report is pending, patient is on 0.9 normal saline at a rate of 75 ML per hour, heparin infusion per weight-based protocol. Today's labs have been reviewed, showing low blood cell, 4.0, hemoglobin is 9.9, serum sodium has slightly improved on today's labs, and is up to 127, potassium is 5.3, chloride is 94, BUN is 19, creatinine is 0.54, [place] [address]. His echocardiogram showed mild concentric LVH, moderate to severe impairment of his left ventricular systolic function with an EF of 30-35%, mild mitral regurg, mild tricuspid regurg. No evidence of pulmonary hypertension. The patient is seen today 01/20/2020 in follow-up on the selective care unit. He is currently resting in bed. He did have ongoing issues with desaturation. He is currently on 5 L/m per nasal cannula. Lungs sounds markedly diminished. IV Solu-Medrol was resumed. He remains on IV diuretics and bronchodilators. He did undergo cardiac catheterization yesterday that revealed calcified coronary arteries, right dominant system. Calcified LAD and multiple areas but no significant obstructive disease. Of 40% second diagonal disease noted. 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 Ejection fraction 30-35%. White count 14.0. Hemoglobin 9.9. Sodium 130. Potassium 4.8. Creatinine 0.56. Objective - Vital Signs Vital signs: Vital Signs Temp 97.8 F 01/20/20 04:27 Pulse 104 H 01/20/20 11:54 Resp 20 01/20/20 08:00 BP 117/56 01/20/20 08:00 Pulse Ox 91 L 01/20/20 08:00 Intake & Output 01/19/20 01/20/20 01/20/20 18:59 06:59 18:59 Intake Total 295 360 Output Total 675 150 Balance 295 -315 -150 Weight 54.5 kg 55.5 kg Intake: IV 100 Intake, IV Titration 75 Amount Sodium Chloride 0.9% 1, 75 000 ml @ 75 mls/hr IV . [id number] [facility] Rx#:[id number] Oral 120 360 Output: Urine 675 150 Other: # Voids 0 1 - Exam GENERAL EXAM: Alert, very pleasant, 74-year-old male patient, on 5 L per high flow oxygen, with a pulse ox of 91% comfortable in no apparent distress. HEAD: Normocephalic/atraumatic. EYES: Normal reaction of pupils, equal size. Conjunctiva pink, sclera white. NOSE: Clear with pink turbinates. THROAT: No erythema or exudates. NECK: No masses, no JVD, no thyroid enlargement, no adenopathy. CHEST: No chest wall deformity. Symmetrical expansion. Left breast firm irregular lesion, and right posterior neck and upper back area firm irregular lesion LUNGS: Equal air entry with few scattered wheezes bilaterally, diminished CVS: Regular rate and rhythm, normal S1 and S2, no gallops, no murmurs, no rubs ABDOMEN: Soft, nontender. No hepatosplenomegaly, normal bowel sounds, no guarding or rigidity. EXTREMITIES: No clubbing, no edema, no cyanosis, 2+ pulses and upper and lower extremities. MUSCULOSKELETAL: Muscle strength and tone normal. SPINE: No scoliosis or deformity SKIN: No rashes CENTRAL NERVOUS SYSTEM: No focal deficits, tone is normal in all 4 extremities. PSYCHIATRIC: Alert and oriented -3. Appropriate affect. Intact judgment and insight. - Labs CBC & Chem 7: 01/20/20 05:23 01/20/20 05:23 Labs: Abnormal Lab Results - Last 24 Hours (Table) 01/19/20 01/19/20 01/19/20 Range/Units 12:05 17:10 20:46 WBC (3.8-10.6) k/uL RBC (4.30-5.90) m/uL Hgb (13.0-17.5) gm/dL Hct (39.0-53.0) % RDW (11.5-15.5) % Plt Count (150-450) k/uL Neutrophils # (1.3-7.7) k/uL Lymphocytes # (1.0-4.8) k/uL Sodium (137-145) mmol/L Chloride (98-107) mmol/L BUN (9-20) mg/dL Creatinine (0.66-1.25) mg/dL Glucose (74-99) mg/dL POC Glucose (mg/dL) 110 H 158 H 190 H (75-99) mg/dL 01/20/20 01/20/20 01/20/20 Range/Units 05:23 05:23 06:20 WBC 14.0 H (3.8-10.6) k/uL RBC 3.31 L (4.30-5.90) m/uL Hgb 9.9 L (13.0-17.5) gm/dL Hct 31.2 L (39.0-53.0) % RDW 21.7 H (11.5-15.5) % Plt Count 491 H (150-450) k/uL Neutrophils # 13.0 H (1.3-7.7) k/uL Lymphocytes # 0.2 L (1.0-4.8) k/uL Sodium 130 L (137-145) mmol/L Chloride 96 L (98-107) mmol/L BUN 25 H (9-20) mg/dL Creatinine 0.56 L (0.66-1.25) mg/dL Glucose 108 H (74-99) mg/dL POC Glucose (mg/dL) 137 H (75-99) mg/dL 01/20/20 Range/Units 11:57 WBC (3.8-10.6) k/uL RBC (4.30-5.90) m/uL Hgb (13.0-17.5) gm/dL Hct (39.0-53.0) % RDW (11.5-15.5) % Plt Count (150-450) k/uL Neutrophils # (1.3-7.7) k/uL Lymphocytes # (1.0-4.8) k/uL Sodium (137-145) mmol/L Chloride (98-107) mmol/L BUN (9-20) mg/dL Creatinine (0.66-1.25) mg/dL Glucose (74-99) mg/dL POC Glucose (mg/dL) 132 H (75-99) mg/dL Assessment and Plan Assessment: 1 acute exacerbation of COPD, with secondary shortness of breath. 2 severe COPD, steroid-dependent and patient has been oxygen dependent and the patient has been on Trelegy Ellipta as maintenance regarding his advanced COPD. 3 acute on chronic hypoxic respiratory failure maintained on 2 L of oxygen by nasal cannula in the outpatient setting 4 cachexia with significant loss in total body muscle and fat mass and his current BMI 20.6 5 right upper lobe enlarging spiculated opacity/scar which has grown in size compared to the previous CAT scan from 2018. His ability of malignancy cannot be completely excluded in the right upper lobe. Nevertheless, this is a limited growth over the past one half years which makes me consider the possibility of an indolent or a slow-growing tumor. 6 acute non-STEMI with diffuse T-wave inversion positive troponins, cardiac catheterization performed 01/19/2020 revealed calcified coronary arteries with mild obstruction, being treated medically. 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 8 hyponatremia, hypochloremia 9 suspected a breast mass, surgical consultation was requested, deferred to IR for biopsy 10 cardiomyopathy, possibly ischemic, echo showed moderate to severe impairment of left ventricular systolic function and EF of 30-35%, mild MR, mild TR, no evidence of pulmonary hypertension Plan: The patient was seen and evaluated by Dr. Wilson Continue with IV Solu-Medrol, IV diuretics, bronchodilators Titrate down the FiO2 as tolerated Cardiac cath report reviewed, to be treated medically Surgical services requesting IR for breast biopsy Family considering palliative care We will continue to follow and make further recommendations based on his clinical status I, the cosigning physician, performed a history & physical examination of the patient. Lungs sounds bilateral end expiratory wheeze, diminished. Maintaining good O2 saturations in the 90s on 5 L/m per nasal cannula. I discussed the assessment and plan of care with my nurse practitioner, Clarisa Hammond. I attest to the above note as dictated by her.
--- NOTE | 2020-01-20 16:14 | PN ---
PROGRESS NOTE Mr. Saucedo had a cardiac cath yesterday. He did not have any significant obstructive CAD, but LV dysfunction is noted suggestive of takotsubo syndrome. Vitals are stable today. He is in alcohol withdrawal situation. S1-S2 heard normally. Short systolic murmur noted. Lungs reveal diminished air entry. Patient has advanced COPD. Abdomen and lower extremity exam unchanged. Plan is to continue current medications. Prognosis remains guarded. Will continue to see him as needed. MMODL / IJN: [id number] /
--- NOTE | 2020-01-20 17:11 | USB ---
EXAMINATION TYPE: US breast needle core LT DATE OF EXAM: 01/20/2020 COMPARISON: Left breast ultrasound 01/18/2020 HISTORY: Left breast mass PROCEDURE: The procedure was discussed with the patient. The risks, complications, benefits, and alternatives were discussed and any questions were answered. Informed consent was obtained. The patient was placed supine on the ultrasound table and prepped and draped in the usual sterile fashion. Preprocedure imaging demonstrates a 2.0 x 1.6 cm well-circumscribed lobular hypoechoic heterogenous breast mass with scant internal vascular color flow. Maximal barrier technique was utilized. The skin overlying a suitable path to the left breast mass was localized using ultrasound, and the skin was prepped and draped. Ultrasound was utilized with sterile technique. Lidocaine was used for local anesthesia. A skin noris made with a scalpel. Under direct ultrasound guidance, an 10 cm Bard 18-gauge coaxial core biopsy needle was advanced into the left breast mass. 3 core biopsy specimens were obtained and submitted in formalin for histopathology. A biopsy marker was placed into the left breast mass to reymundo biopsy site. Postprocedure imaging demonstrated no evidence of significant hemorrhage. There was no immediate complication and patient remained in stable condition. IMPRESSION: Successful ultrasound-guided left breast mass 18G core biopsy. Pathology pending. Performed by the undersigned. 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 Appropriately controlled immunohistochemical studies for TTF, Napsin-A and cytokeratin 7 are strongly reactive with tumor cells; cytokeratin 20, mammaglobin and CDX-2 are negative in tumor cells; PHILLIP-3 is negative in tumor cells but stains background T-lymphocytes; ER is weakly positive with about 1-3% of tumor cells. Recommendation Surgical consult of the left breast. MTDD
[2020-01-20] MEDS: methylPREDNISolone SOD SUCCI 125 MG/2 ML VIAL IV SCH ×3 (18:11→23:09)
[2020-01-20 20:31] LABS: Glucose,Whole Blood 184 mg/dL (75-99)
[2020-01-20] MEDS: LOSARTAN 25 MG TAB PO SCH (20:35)
[2020-01-21 06:11] LABS: Glucose,Whole Blood 131 mg/dL (75-99)
[2020-01-21] MEDS: methylPREDNISolone SOD SUCCI 125 MG/2 ML VIAL IV SCH ×4 (06:32→23:16)
[2020-01-21] MEDS: INSULIN ASPART (NovoLOG) 100 UNIT/ML VIAL SQ SCH ×4 (06:32→20:35)
[2020-01-21] MEDS: HEPARIN SODIUM,PORCINE 5,000 UNIT/ML 1 ML VIAL SQ SCH ×3 (08:16→23:16)
[2020-01-21] MEDS: FUROSEMIDE 10 MG/ML 2 ML VIAL IV SCH ×2 (08:16→20:35)
[2020-01-21] MEDS: ASPIRIN 81 MG PO SCH (08:17)
[2020-01-21] MEDS: METOPROLOL TARTRATE 25 MG TAB PO SCH (08:17)
[2020-01-21 10:35] LABS: Anisocytosis Moderate; Basophils % (A) 0 %; Eosinophils % (A) 1 %; HCT 34.8 % (39.0-53.0); HGB 10.6 gm/dL (13.0-17.5); Hypochromasia Marked; Lymphocytes # (A) 0.3 k/uL (1.0-4.8); Lymphocytes % (A) 4 %; MCH 29.2 pg (25.0-35.0); MCHC 30.5 g/dL (31.0-37.0); MCV 95.8 fL (80.0-100.0); Macrocytosis Slight; Monocytes # (A) 0.4 k/uL (0-1.0); Monocytes % (A) 6 %; Neutrophils # (A) 6.6 k/uL (1.3-7.7); Neutrophils % (A) 90 %; Platelet Count 477 k/uL (150-450); RBC 3.63 m/uL (4.30-5.90); RDW 21.4 % (11.5-15.5); WBC 7.3 k/uL (3.8-10.6)
[2020-01-21 10:39] LABS: African American GFR (CKD) >90 (>60 ml/min/1.73 sqM); Anion Gap 7 mmol/L; Blood Urea Nitrogen 29 mg/dL (9-20); Calcium 9.4 mg/dL (8.4-10.2); Carbon Dioxide 30 mmol/L (22-30); Chloride 93 mmol/L (98-107); Glucose 135 mg/dL (74-99); Non-African American GFR(CKD) >90 (>60 ml/min/1.73 sqM); Potassium 4.4 mmol/L (3.5-5.1); Sodium 130 mmol/L (137-145)
--- NOTE | 2020-01-21 10:50 | P.PN ---
Progress Note - Text Progress Note Date: 01/21/20 The patient is resting comfortably in his bed. He underwent A CORE BIOPSY OF THIS BREAST MASS YESTERDAY. ON EXAM VITAL SIGNS ARE STABLE. CHEST WALL IS WITHIN NORMAL LIMITS. BIOPSY RESULTS OF HIS BREAST MASS ARE PENDING. WE'LL FOLLOW WITH YOU.
[2020-01-21] MEDS: IPRATROPIUM-ALBUTEROL 3 ML NEB INHALATION PRN (11:40)
[2020-01-21 12:16] LABS: Glucose,Whole Blood 173 mg/dL (75-99)
--- NOTE | 2020-01-21 13:26 | XR ---
EXAMINATION TYPE: XR chest 1V DATE OF EXAM: 01/21/2020 HISTORY: cough;sob. REFERENCE: Previous study dated 01/18/2020. FINDINGS: The lungs are overinflated. Heart size is mildly increased. The lungs are clear. Pleural sp garcia are clear. IMPRESSION: 1. COPD. 2. MILD CARDIOMEGALY.
--- NOTE | 2020-01-21 14:08 | P.PN ---
Subjective Progress Note Date: 01/21/20 Principal diagnosis: Acute exacerbation of chronic obstructive pulmonary disease 74-year-old male patient with advanced COPD with a baseline FEV1 of 24% of predicted, and a total lung capacity of 127% of predicted and diffusion capacity of 23% of predicted consistent with severe advanced COPD. The patient has been followed up in our office. The patient has been maintained on Trelegy Ellipta as maintenance in addition to her maintenance prednisone of 10 mg on a daily basis and oxygen 2 L/m 24 7. The patient has a portable concentrator. The patient also has known scar in the right apical area which needs to be monitored. Based on his advanced comorbidities and advanced COPD, no further workup has been done regarding this abnormal opacity/scar in the right upper lobe. Note that he has diffuse emphysema with upper lobe predominance and there is no mediastinal lymphadenopathy. His last hospitalization for COPD exacerbation was back in 2018. The patient comes into the MRSA problem because of worsening shortness of breath and increased cough and increased sputum production. His primary medical doctor wanted to come into the hospital to be evaluated. He has no fever. Has no chills. No nausea vomiting or abdominal pain. He has significant limitation of exercise capacity secondary to advanced COPD. He denies having any swelling in lower extremities. He denied having any calf pain or tenderness. A CT angios and was done in the [facility] that showed no evidence of any pulmonary embolism. There was diffuse emphysema and as for the right upper lobe opacity, this was again seen at the pleural-based lesion that has increased in size compared to the previous CAT scan from 10/23/2018. It showed some spiculation and it was measuring 2.4 x 2.4 x 2.1 cm in size. There is some scarring in the lung bases bilaterally. There is extensive edematous changes throughout the lung torres bilaterally. There is also a left breast opacity noted. The EKG was consistent with sinus tachycardia with occasional PVCs. There were T-wave inversions that would raise the possibility of an underlying anterolateral ischemia. No ST segment elevations. The patient had abnormalities and troponin with levels being 0.387 and 0.331 respectively 2. His sodium level came up 124. White cell count 11.2 with a hemoglobin of 11.0 and a platelet count of 385. On 01/19/2020 patient seen in follow-up on selective care unit, patient is resting in bed, remains on high flow oxygen currently at 6 L, his pulse ox of 93-99%, she still gets very short of breath with exertion, conversation, occasional cough, with no phlegm production. Denies chest pain, patient had e levation of his troponins, cardiology is following, and patient is scheduled for cardiac catheterization today. Echocardiogram has been taken, report is pending, patient is on 0.9 normal saline at a rate of 75 ML per hour, heparin infusion per weight-based protocol. Today's labs have been reviewed, showing low blood cell, 4.0, hemoglobin is 9.9, serum sodium has slightly improved on today's labs, and is up to 127, potassium is 5.3, chloride is 94, BUN is 19, creatinine is 0.54, [place] [address]. His echocardiogram showed mild concentric LVH, moderate to severe impairment of his left ventricular systolic function with an EF of 30-35%, mild mitral regurg, mild tricuspid regurg. No evidence of pulmonary hypertension. The patient is seen today 01/20/2020 in follow-up on the selective care unit. He is currently resting in bed. He did have ongoing issues with desaturation. He is currently on 5 L/m per nasal cannula. Lungs sounds markedly diminished. IV Solu-Medrol was resumed. He remains on IV diuretics and bronchodilators. He did undergo cardiac catheterization yesterday that revealed calcified coronary arteries, right dominant system. Calcified LAD and multiple areas but no significant obstructive disease. Of 40% second diagonal disease noted. 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 Ejection fraction 30-35%. White count 14.0. Hemoglobin 9.9. Sodium 130. Potassium 4.8. Creatinine 0.56. The patient is seen today 01/21/2020 in follow-up on the selective care unit. He is awake and alert in no acute distress. Resting comfortably in bed. Breathing a bit easier today compared to yesterday. Chest x-ray reveals evidence of chronic obstructive pulmonary disease and mild cardiomegaly. No acute process. White count 7.3. Hemoglobin 10.6. Sodium 1:30. Potassium 4.4. Creatinine 0.60. He remains on bronchodilators, IV diuretics, IV Solu-Medrol. He did undergo a core needle biopsy of the left breast mass yesterday. Pathology pending. Objective - Vital Signs Vital signs: Vital Signs Temp 97.6 F 01/21/20 12:00 Pulse 97 01/21/20 12:00 Resp 18 01/21/20 12:00 BP 126/67 01/21/20 12:00 Pulse Ox 95 01/21/20 12:00 Intake & Output 01/20/20 01/21/20 01/21/20 18:59 06:59 18:59 Intake Total 230 240 Output Total 150 700 Balance 80 -700 240 Weight 55.5 kg 55 kg Intake: Oral 230 240 Output: Urine 150 700 Other: Voiding Method Urinal Urinal # Voids 1 1 1 - Exam GENERAL EXAM: Alert, very pleasant, 74-year-old male patient, on 5 L per high flow oxygen, with a pulse ox of 95% comfortable in no apparent distress. HEAD: Normocephalic/atraumatic. EYES: Normal reaction of pupils, equal size. Conjunctiva pink, sclera white. NOSE: Clear with pink turbinates. THROAT: No erythema or exudates. NECK: No masses, no JVD, no thyroid enlargement, no adenopathy. CHEST: No chest wall deformity. Symmetrical expansion. Left breast firm irregular lesion, status post biopsy, and right posterior neck and upper back area firm irregular lesion LUNGS: Equal air entry with few scattered wheezes bilaterally, diminished CVS: Regular rate and rhythm, normal S1 and S2, no gallops, no murmurs, no rubs ABDOMEN: Soft, nontender. No hepatosplenomegaly, normal bowel sounds, no guarding or rigidity. EXTREMITIES: No clubbing, no edema, no cyanosis, 2+ pulses and upper and lower extremities. MUSCULOSKELETAL: Muscle strength and tone normal. SPINE: No scoliosis or deformity SKIN: No rashes CENTRAL NERVOUS SYSTEM: No focal deficits, tone is normal in all 4 extremities. PSYCHIATRIC: Alert and oriented -3. Appropriate affect. Intact judgment and insight. - Labs CBC & Chem 7: 01/21/20 09:42 01/21/20 09:42 Labs: Abnormal Lab Results - Last 24 Hours (Table) 01/20/20 01/21/20 01/21/20 Range/Units 20:29 06:10 09:42 RBC 3.63 L (4.30-5.90) m/uL Hgb 10.6 L (13.0-17.5) gm/dL Hct 34.8 L (39.0-53.0) % MCHC 30.5 L (31.0-37.0) g/dL RDW 21.4 H (11.5-15.5) % Plt Count 477 H (150-450) k/uL Lymphocytes # 0.3 L (1.0-4.8) k/uL Sodium (137-145) mmol/L Chloride (98-107) mmol/L BUN (9-20) mg/dL Creatinine (0.66-1.25) mg/dL Glucose (74-99) mg/dL POC Glucose (mg/dL) 184 H 131 H (75-99) mg/dL 01/21/20 01/21/20 Range/Units 09:42 11:45 RBC (4.30-5.90) m/uL Hgb (13.0-17.5) gm/dL Hct (39.0-53.0) % MCHC (31.0-37.0) g/dL RDW (11.5-15.5) % Plt Count (150-450) k/uL Lymphocytes # (1.0-4.8) k/uL Sodium 130 L (137-145) mmol/L Chloride 93 L (98-107) mmol/L BUN 29 H (9-20) mg/dL Creatinine 0.60 L (0.66-1.25) mg/dL Glucose 135 H (74-99) mg/dL POC Glucose (mg/dL) 173 H (75-99) mg/dL Assessment and Plan Assessment: 1 acute exacerbation of COPD, with secondary shortness of breath. 2 severe COPD, steroid-dependent and patient has been oxygen dependent and the patient has been on Trelegy Ellipta as maintenance regarding his advanced COPD. 3 acute on chronic hypoxic respiratory failure maintained on 2 L of oxygen by nasal cannula in the outpatient setting 4 cachexia with significant loss in total body muscle and fat mass and his current BMI 20.6 5 right upper lobe enlarging spiculated opacity/scar which has grown in size compared to the previous CAT scan from 2018. His ability of malignancy cannot be completely excluded in the right upper lobe. Nevertheless, this is a limited growth over the past one half years which makes me consider the possibility of an indolent or a slow-growing tumor. 6 acute non-STEMI with diffuse T-wave inversion positive troponins, cardiac catheterization performed 01/19/2020 revealed calcified coronary arteries with mild obstruction, being treated medically. 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 8 hyponatremia, hypochloremia 9 suspected a left breast mass, status post core biopsy by IR on 01/20/2020 10 cardiomyopathy, possibly ischemic, echo showed moderate to severe impairment of left ventricular systolic function and EF of 30-35%, mild MR, mild TR, no evidence of pulmonary hypertension Plan: The patient was seen and evaluated by Dr. Wilson Continue with IV Solu-Medrol, IV diuretics, bronchodilators Titrate down the FiO2 as tolerated Cardiac cath report reviewed, to be treated medically Left breast mass biopsy performed yesterday 01/20/2020 Pathology pending Family considering palliative care We will continue to follow and make further recommendations based on his clinical status I, the cosigning physician, performed a history & physical examination of the patient. Lungs sounds bilateral end expiratory wheeze, diminished. Maintaining good O2 saturations in the 90s on 5 L/m per nasal cannula. I discussed the assessment and plan of care with my nurse practitioner, Clarisa Hammond. I attest to the above note as dictated by her.
--- NOTE | 2020-01-21 16:27 | PN ---
PROGRESS NOTE Mr. Saucedo had a cardiac cath, has a Takotsubo syndrome. His blood pressure is fairly well controlled. He is doing fairly well, slightly tachycardic. Vitals are stable. JVD 1 cm, no carotid bruit. S1-S2 heard normally. Lungs reveal diminished air entry. Abdomen and lower extremity exam unchanged. Right groin is clean and dry with a good pulse. I will increase Lopressor to 50 mg b.i.d., increase losartan to 50 mg daily. We will repeat an echo on Thursday. CBC, BMP tomorrow. Same medical regimen as outlined above. MMODL / IJN: [id number] /
[2020-01-21 17:17] LABS: Glucose,Whole Blood 97 mg/dL (75-99)
[2020-01-21 20:05] LABS: Glucose,Whole Blood 188 mg/dL (75-99)
[2020-01-21] MEDS: METOPROLOL TARTRATE 50 MG TAB PO SCH (20:33)
[2020-01-21] MEDS: LOSARTAN 50 MG TAB PO SCH (20:35)
--- NOTE | 2020-01-22 00:17 | P.PN ---
Subjective Progress Note Date: 01/20/20 Principal diagnosis: Acute COPD exac NSTEMI Patient is a 74-year-old male with a known history of COPD, chronic hypoxic respiratory failure on home oxygen and steroid-dependent, bilateral lower extremity edema, hematochromatosis and previous history of smoking and other medical problems presents to ER with complaints of worsening shortness of breath cough and increased sputum production. Patient was seen by his primary care physician and sent him to ER. Otherwise patient denied any complaints of chest pain. No headache or dizziness or lightheadedness. No fever no chills. No recent illnesses. No nausea vomiting or abdominal pain or diarrhea. Patient also states that his right leg is chronically swollen than the left. Denied any calf pain. Denied any history of blood clots. Chest x-ray showed vague basilar interstitial infiltrates are suggested. C orrelate for developing pneumonia. CT angiogram of the chest was done showed interval increase in size in the right upper lobe lung mass. Left breast mass. Emphysema. No evidence of pulmonary embolus. Small effusions and associated atelectasis, interstitial lung disease. Borderline aortic aneurysm. EKG showed T wave inversions in the lateral leads. Sinus tachycardia. PVCs. Laboratory data showed WBC 11.2, hemoglobin 11.0, RDW 22, sodium 124, potassium 4.8, chloride 488, BUN 18 and creatinine 0.62 Troponin 0 0.387, 0.331, 0.234 Albumin 3.1 Lactic acid level is 1.7 01/19/2020 Patient is currently lying in the bed resting having dyspnea and also requiring oxygen at 6 L via nasal cannula. Patient still gets very dyspneic with exertion. Occasional cough. No sputum production. Patient had cardiac catheterization done today showed nonobstructive coronaries. Patient has orthopnea requiring elevation of the head of the bed. Laboratory data showed WBC 4.0, hemoglobin 9.9, RDW 1366, sodium 127, potassium 5.3 Chloride 94 BUN 19 and creatinine 0.54 proBNP is 26 100 2D echocardiogram showed overall left ventricular systolic function is moderate to severely impaired. Ejection fraction 30 to 35%. 01/20/2020 Patient is currently lying in the bed still very dyspneic. IV Solu-Medrol changed to 60 mg every 6 hourly. Patient is on oxygen via nasal cannula at 6 L. Patient is also on IV diuretics. Laboratory data showed WBC 14.0, hemoglobin 9.9, creatinine level is 0.56. General surgery is planning for core needle biopsy of the left breast mass. Discussed with the family at bedside. Current medications reviewed. Objective - Vital Signs Vital signs: Vital Signs Temp 97.8 F 01/20/20 04:27 Pulse 112 H 01/20/20 20:54 Resp 20 01/20/20 16:00 BP 114/68 01/20/20 16:00 Pulse Ox 89 L 01/20/20 16:00 Intake & Output 01/20/20 01/20/20 01/21/20 06:59 18:59 06:59 Intake Total 360 230 Output Total 675 150 200 Balance -315 80 -200 Weight 55.5 kg 55.5 kg Intake: Oral 360 230 Output: Urine 675 150 200 Other: # Voids 1 1 - Exam PHYSICAL EXAMINATION: Patient is lying in the bed comfortably, no acute distress, awake alert and oriented.. HEENT: Normocephalic. Neck is supple. Pupils reactive. Nostrils clear. Oral cavity is moist. Ears reveal no drainage. Neck reveals no JVD, carotid bruits, or thyromegaly. CHEST EXAMINATION: Trachea is central. Symmetrical expansion. Bilateral diffuse wheezing and rhonchi. Bibasilar diminished air entry.. CARDIAC: Normal S1, S2 with no gallops. No murmurs ABDOMEN: Soft. Bowel sounds normal. No organomegaly. No abdominal bruits. Extremities: 2+ edema.. No clubbing or cyanosis Neurologically awake, alert, oriented x3 with well-coordinated movements. No focal deficits noted Skin: No rash or skin lesions. Psychiatric: Coperative. Nonsuicidal Musculoskeletal: No joint swelling or deformity. Normal range of motion. - Labs CBC & Chem 7: 01/21/20 09:42 01/21/20 09:42 Labs: Abnormal Lab Results - Last 24 Hours (Table) 01/20/20 01/20/20 01/20/20 Range/Units 05:23 05:23 06:20 WBC 14.0 H (3.8-10.6) k/uL RBC 3.31 L (4.30-5.90) m/uL Hgb 9.9 L (13.0-17.5) gm/dL Hct 31.2 L (39.0-53.0) % RDW 21.7 H (11.5-15.5) % Plt Count 491 H (150-450) k/uL Neutrophils # 13.0 H (1.3-7.7) k/uL Lymphocytes # 0.2 L (1.0-4.8) k/uL Sodium 130 L (137-145) mmol/L Chloride 96 L (98-107) mmol/L BUN 25 H (9-20) mg/dL Creatinine 0.56 L (0.66-1.25) mg/dL Glucose 108 H (74-99) mg/dL POC Glucose (mg/dL) 137 H (75-99) mg/dL 01/20/20 01/20/20 Range/Units 11:57 20:29 WBC (3.8-10.6) k/uL RBC (4.30-5.90) m/uL Hgb (13.0-17.5) gm/dL Hct (39.0-53.0) % RDW (11.5-15.5) % Plt Count (150-450) k/uL Neutrophils # (1.3-7.7) k/uL Lymphocytes # (1.0-4.8) k/uL Sodium (137-145) mmol/L Chloride (98-107) mmol/L BUN (9-20) mg/dL Creatinine (0.66-1.25) mg/dL Glucose (74-99) mg/dL POC Glucose (mg/dL) 132 H 184 H (75-99) mg/dL Assessment and Plan Assessment: Shortness of breath secondary to acute COPD exacerbation and also interval increase in the right upper lobe mass and CHF Severe COPD on home oxygen and steroid-dependent Acute CHF with systolic dysfunction ejection fraction 35 to 30%/ Apical ballooning syndrome Acute non-ST elevated [place] with elevated troponin level. Trending down now. Chronic hypoxic respiratory failure secondary to COPD currently on 2 L oxygen via nasal cannula at home. Right upper lobe lung mass increasing in size Left breast mass shown in the CT chest HyponatremiaLikely hypovolemic gentle IV hydration. Moderate protein calorie malnutrition History of hematochromatosis Previous history of smoking DVT prophylaxis. Patient is currently on heparin drip. Plan: Patient will be continued on duo nebs, IV steroids and oxygen therapy.Patient was started on aspirin, statins, Lasix 20 mg IV twice daily. Patient is status post cardiac catheterization. Pulmonary and cardiology is following. Patient will was seen by pulmonary and recommended outpatient work-up for right upper lobe mass. Prognosis guarded with multiple medical problems and comorbid conditions. Time with Patient: Greater than 30
--- NOTE | 2020-01-22 00:19 | P.PN ---
Subjective Progress Note Date: 01/21/20 Principal diagnosis: Acute COPD exac NSTEMI Patient is a 74-year-old male with a known history of COPD, chronic hypoxic respiratory failure on home oxygen and steroid-dependent, bilateral lower extremity edema, hematochromatosis and previous history of smoking and other medical problems presents to ER with complaints of worsening shortness of breath cough and increased sputum production. Patient was seen by his primary care physician and sent him to ER. Otherwise patient denied any complaints of chest pain. No headache or dizziness or lightheadedness. No fever no chills. No recent illnesses. No nausea vomiting or abdominal pain or diarrhea. Patient also states that his right leg is chronically swollen than the left. Denied any calf pain. Denied any history of blood clots. Chest x-ray showed vague basilar interstitial infiltrates are suggested. C orrelate for developing pneumonia. CT angiogram of the chest was done showed interval increase in size in the right upper lobe lung mass. Left breast mass. Emphysema. No evidence of pulmonary embolus. Small effusions and associated atelectasis, interstitial lung disease. Borderline aortic aneurysm. EKG showed T wave inversions in the lateral leads. Sinus tachycardia. PVCs. Laboratory data showed WBC 11.2, hemoglobin 11.0, RDW 22, sodium 124, potassium 4.8, chloride 488, BUN 18 and creatinine 0.62 Troponin 0 0.387, 0.331, 0.234 Albumin 3.1 Lactic acid level is 1.7 01/19/2020 Patient is currently lying in the bed resting having dyspnea and also requiring oxygen at 6 L via nasal cannula. Patient still gets very dyspneic with exertion. Occasional cough. No sputum production. Patient had cardiac catheterization done today showed nonobstructive coronaries. Patient has orthopnea requiring elevation of the head of the bed. Laboratory data showed WBC 4.0, hemoglobin 9.9, RDW 1366, sodium 127, potassium 5.3 Chloride 94 BUN 19 and creatinine 0.54 proBNP is 26 100 2D echocardiogram showed overall left ventricular systolic function is moderate to severely impaired. Ejection fraction 30 to 35%. 01/20/2020 Patient is currently lying in the bed still very dyspneic. IV Solu-Medrol changed to 60 mg every 6 hourly. Patient is on oxygen via nasal cannula at 6 L. Patient is also on IV diuretics. Laboratory data showed WBC 14.0, hemoglobin 9.9, creatinine level is 0.56. General surgery is planning for core needle biopsy of the left breast mass. Discussed with the family at bedside. 01/21/2020 Patient is currently lying in the bed comfortably. Still having exertional shortness of breath. Wheezing is improved. Chest x-ray showed COPD and mild cardiomegaly. Patient is being continued on IV Solu-Medrol, breathing treatments and IV diuretics. Lab data showed WBC 7.3, hemoglobin 10.6, platelets 477 Sodium 130, potassium 4.4, chloride 93, BUN 29 creatinine 0.6 Calcium 9.4 Patient underwent core needle biopsy of 3 left breast mass yesterday. Pathology is pending. Decreases ejection fraction likely to Takotsubo. Pulmonary and cardiology is following. Current medications reviewed. Objective - Vital Signs Vital signs: Vital Signs Temp 97.6 F 01/21/20 23:58 Pulse 91 01/21/20 23:58 Resp 19 01/21/20 23:58 BP 107/57 01/21/20 23:58 Pulse Ox 91 L 01/21/20 23:58 Intake & Output 01/21/20 01/21/20 01/22/20 06:59 18:59 06:59 Intake Total 360 Output Total 700 150 200 Balance -700 210 -200 Weight 55 kg Intake: Oral 360 Output: Urine 700 150 200 Other: Voiding Method Urinal Urinal Urinal # Voids 1 1 2 - Exam PHYSICAL EXAMINATION: Patient is lying in the bed comfortably, no acute distress, awake alert and oriented.. HEENT: Normocephalic. Neck is supple. Pupils reactive. Nostrils clear. Oral cavity is moist. Ears reveal no drainage. Neck reveals no JVD, carotid bruits, or thyromegaly. CHEST EXAMINATION: Trachea is central. Symmetrical expansion. Bilateral Improved air entry and expiratory wheezing.. Bibasilar diminished air entry.. CARDIAC: Normal S1, S2 with no gallops. No murmurs ABDOMEN: Soft. Bowel sounds normal. No organomegaly. No abdominal bruits. Extremities: 2+ edema.. No clubbing or cyanosis Neurologically awake, alert, oriented x3 with well-coordinated movements. No focal deficits noted Skin: No rash or skin lesions. Psychiatric: Coperative. Nonsuicidal Musculoskeletal: No joint swelling or deformity. Normal range of motion. - Labs CBC & Chem 7: 01/21/20 09:42 01/21/20 09:42 Labs: Abnormal Lab Results - Last 24 Hours (Table) 01/21/20 01/21/20 01/21/20 Range/Units 06:10 09:42 09:42 RBC 3.63 L (4.30-5.90) m/uL Hgb 10.6 L (13.0-17.5) gm/dL Hct 34.8 L (39.0-53.0) % MCHC 30.5 L (31.0-37.0) g/dL RDW 21.4 H (11.5-15.5) % Plt Count 477 H (150-450) k/uL Lymphocytes # 0.3 L (1.0-4.8) k/uL Sodium 130 L (137-145) mmol/L Chloride 93 L (98-107) mmol/L BUN 29 H (9-20) mg/dL Creatinine 0.60 L (0.66-1.25) mg/dL Glucose 135 H (74-99) mg/dL POC Glucose (mg/dL) 131 H (75-99) mg/dL 01/21/20 01/21/20 Range/Units 11:45 20:04 RBC (4.30-5.90) m/uL Hgb (13.0-17.5) gm/dL Hct (39.0-53.0) % MCHC (31.0-37.0) g/dL RDW (11.5-15.5) % Plt Count (150-450) k/uL Lymphocytes # (1.0-4.8) k/uL Sodium (137-145) mmol/L Chloride (98-107) mmol/L BUN (9-20) mg/dL Creatinine (0.66-1.25) mg/dL Glucose (74-99) mg/dL POC Glucose (mg/dL) 173 H 188 H (75-99) mg/dL Assessment and Plan Assessment: Shortness of breath secondary to acute COPD exacerbation and also interval increase in the right upper lobe mass and CHF Severe COPD on home oxygen and steroid-dependent Acute CHF with systolic dysfunction ejection fraction 35 to 30%/ Apical ballooning syndrome Acute non-ST elevated [place] with elevated troponin level. Trending down now. Chronic hypoxic respiratory failure secondary to COPD currently on 2 L oxygen via nasal cannula at home. Right upper lobe lung mass increasing in size Left breast mass shown in the CT chest HyponatremiaLikely hypovolemic gentle IV hydration. Moderate protein calorie malnutrition History of hematochromatosis Previous history of smoking DVT prophylaxis. Patient is currently on heparin drip. Plan: Patient will be continued on duo nebs, IV steroids and oxygen therapy.Patient was started on aspirin, statins, Lasix 20 mg IV twice daily. Patient is status post cardiac catheterization. Pulmonary and cardiology is following. Patient will was seen by pulmonary and recommended outpatient work-up for right upper lobe mass. Prognosis guarded with multiple medical problems and comorbid conditions. Time with Patient: Greater than 30
[2020-01-22 06:26] LABS: Glucose,Whole Blood 119 mg/dL (75-99)
[2020-01-22] MEDS: INSULIN ASPART (NovoLOG) 100 UNIT/ML VIAL SQ SCH ×4 (06:37→21:04)
[2020-01-22] MEDS: methylPREDNISolone SOD SUCCI 125 MG/2 ML VIAL IV SCH ×4 (06:40→23:11)
[2020-01-22] MEDS: HEPARIN SODIUM,PORCINE 5,000 UNIT/ML 1 ML VIAL SQ SCH ×3 (08:03→23:11)
[2020-01-22] MEDS: ASPIRIN 81 MG PO SCH (08:03)
[2020-01-22] MEDS: METOPROLOL TARTRATE 50 MG TAB PO SCH ×2 (08:03→21:04)
[2020-01-22] MEDS: FUROSEMIDE 10 MG/ML 2 ML VIAL IV SCH ×2 (08:04→21:04)
[2020-01-22 08:49] LABS: Anisocytosis Moderate; Basophils % (A) 0 %; Eosinophils # (A) 0.1 k/uL (0-0.7); Eosinophils % (A) 1 %; HCT 35.3 % (39.0-53.0); HGB 10.5 gm/dL (13.0-17.5); Hypochromasia Marked; Lymphocytes # (A) 0.4 k/uL (1.0-4.8); Lymphocytes % (A) 4 %; MCH 28.2 pg (25.0-35.0); MCHC 29.6 g/dL (31.0-37.0); MCV 95.4 fL (80.0-100.0); Macrocytosis Slight; Mean Platelet Volume 7.7; Monocytes # (A) 0.4 k/uL (0-1.0); Monocytes % (A) 5 %; Neutrophils # (A) 7.5 k/uL (1.3-7.7); Neutrophils % (A) 89 %; Platelet Count 491 k/uL (150-450); RBC 3.71 m/uL (4.30-5.90); WBC 8.4 k/uL (3.8-10.6)
[2020-01-22 08:54] LABS: African American GFR (CKD) >90 (>60 ml/min/1.73 sqM); Anion Gap 6 mmol/L; Blood Urea Nitrogen 32 mg/dL (9-20); Calcium 9.5 mg/dL (8.4-10.2); Carbon Dioxide 30 mmol/L (22-30); Chloride 94 mmol/L (98-107); Glucose 129 mg/dL (74-99); Non-African American GFR(CKD) >90 (>60 ml/min/1.73 sqM); Potassium 4.9 mmol/L (3.5-5.1); Sodium 130 mmol/L (137-145)
[2020-01-22] MEDS: IPRATROPIUM-ALBUTEROL 3 ML NEB INHALATION PRN ×3 (11:52→19:33)
[2020-01-22 12:05] LABS: Glucose,Whole Blood 179 mg/dL (75-99)
--- NOTE | 2020-01-22 12:53 | P.PN ---
Subjective Progress Note Date: 01/22/20 Principal diagnosis: Acute exacerbation of chronic obstructive pulmonary disease 74-year-old male patient with advanced COPD with a baseline FEV1 of 24% of predicted, and a total lung capacity of 127% of predicted and diffusion capacity of 23% of predicted consistent with severe advanced COPD. The patient has been followed up in our office. The patient has been maintained on Trelegy Ellipta as maintenance in addition to her maintenance prednisone of 10 mg on a daily basis and oxygen 2 L/m 24 7. The patient has a portable concentrator. The patient also has known scar in the right apical area which needs to be monitored. Based on his advanced comorbidities and advanced COPD, no further workup has been done regarding this abnormal opacity/scar in the right upper lobe. Note that he has diffuse emphysema with upper lobe predominance and there is no mediastinal lymphadenopathy. His last hospitalization for COPD exacerbation was back in 2018. The patient comes into the MRSA problem because of worsening shortness of breath and increased cough and increased sputum production. His primary medical doctor wanted to come into the hospital to be evaluated. He has no fever. Has no chills. No nausea vomiting or abdominal pain. He has significant limitation of exercise capacity secondary to advanced COPD. He denies having any swelling in lower extremities. He denied having any calf pain or tenderness. A CT angios and was done in the [facility] that showed no evidence of any pulmonary embolism. There was diffuse emphysema and as for the right upper lobe opacity, this was again seen at the pleural-based lesion that has increased in size compared to the previous CAT scan from 10/23/2018. It showed some spiculation and it was measuring 2.4 x 2.4 x 2.1 cm in size. There is some scarring in the lung bases bilaterally. There is extensive edematous changes throughout the lung torres bilaterally. There is also a left breast opacity noted. The EKG was consistent with sinus tachycardia with occasional PVCs. There were T-wave inversions that would raise the possibility of an underlying anterolateral ischemia. No ST segment elevations. The patient had abnormalities and troponin with levels being 0.387 and 0.331 respectively 2. His sodium level came up 124. White cell count 11.2 with a hemoglobin of 11.0 and a platelet count of 385. On 01/19/2020 patient seen in follow-up on selective care unit, patient is resting in bed, remains on high flow oxygen currently at 6 L, his pulse ox of 93-99%, she still gets very short of breath with exertion, conversation, occasional cough, with no phlegm production. Denies chest pain, patient had e levation of his troponins, cardiology is following, and patient is scheduled for cardiac catheterization today. Echocardiogram has been taken, report is pending, patient is on 0.9 normal saline at a rate of 75 ML per hour, heparin infusion per weight-based protocol. Today's labs have been reviewed, showing low blood cell, 4.0, hemoglobin is 9.9, serum sodium has slightly improved on today's labs, and is up to 127, potassium is 5.3, chloride is 94, BUN is 19, creatinine is 0.54, [place] [address]. His echocardiogram showed mild concentric LVH, moderate to severe impairment of his left ventricular systolic function with an EF of 30-35%, mild mitral regurg, mild tricuspid regurg. No evidence of pulmonary hypertension. The patient is seen today 01/20/2020 in follow-up on the selective care unit. He is currently resting in bed. He did have ongoing issues with desaturation. He is currently on 5 L/m per nasal cannula. Lungs sounds markedly diminished. IV Solu-Medrol was resumed. He remains on IV diuretics and bronchodilators. He did undergo cardiac catheterization yesterday that revealed calcified coronary arteries, right dominant system. Calcified LAD and multiple areas but no significant obstructive disease. Of 40% second diagonal disease noted. 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 Ejection fraction 30-35%. White count 14.0. Hemoglobin 9.9. Sodium 130. Potassium 4.8. Creatinine 0.56. The patient is seen today 01/21/2020 in follow-up on the selective care unit. He is awake and alert in no acute distress. Resting comfortably in bed. Breathing a bit easier today compared to yesterday. Chest x-ray reveals evidence of chronic obstructive pulmonary disease and mild cardiomegaly. No acute process. White count 7.3. Hemoglobin 10.6. Sodium 1:30. Potassium 4.4. Creatinine 0.60. He remains on bronchodilators, IV diuretics, IV Solu-Medrol. He did undergo a core needle biopsy of the left breast mass yesterday. Pathology pending. The patient is seen today 01/22/2020 in follow-up on the selective care unit. He is currently sitting up in a chair at the bedside. Awake and alert in no acute distress. Breathing easier today compared to yesterday. Not quite back to his baseline. Maintaining O2 saturations in the low 90s on 5 L/m per nasal cannula. He is afebrile. Slightly tachycardic. White count 8.4. Hemoglobin 10.5. Sodium 1:30. Potassium 4.9. Creatinine 0.56. Continued on DuoNeb inhalations, Symbicort, IV Solu-Medrol, IV diuretics. Objective - Vital Signs Vital signs: Vital Signs Temp 98.0 F 01/22/20 12:00 Pulse 108 H 01/22/20 12:08 Resp 18 01/22/20 12:00 BP 126/59 01/22/20 12:00 Pulse Ox 92 L 01/22/20 12:00 Intake & Output 01/21/20 01/22/20 01/22/20 18:59 06:59 18:59 Intake Total 360 120 Output Total 150 200 Balance 210 -200 120 Weight 40 kg Intake: Oral 360 120 Output: Urine 150 200 Other: Voiding Method Urinal Urinal Urinal # Voids 1 2 1 - Exam GENERAL EXAM: Alert, very pleasant, 74-year-old male patient, on 5 L per high flow oxygen, with a pulse ox of 92% comfortable in no apparent distress. HEAD: Normocephalic/atraumatic. EYES: Normal reaction of pupils, equal size. Conjunctiva pink, sclera white. NOSE: Clear with pink turbinates. THROAT: No erythema or exudates. NECK: No masses, no JVD, no thyroid enlargement, no adenopathy. CHEST: No chest wall deformity. Symmetrical expansion. Left breast firm irregular lesion, status post biopsy, and right posterior neck and upper back area firm irregular lesion LUNGS: Equal air entry with few scattered wheezes bilaterally, diminished CVS: Regular rate and rhythm, normal S1 and S2, no gallops, no murmurs, no rubs ABDOMEN: Soft, nontender. No hepatosplenomegaly, normal bowel sounds, no guarding or rigidity. EXTREMITIES: No clubbing, no edema, no cyanosis, 2+ pulses and upper and lower extremities. MUSCULOSKELETAL: Muscle strength and tone normal. SPINE: No scoliosis or deformity SKIN: No rashes CENTRAL NERVOUS SYSTEM: No focal deficits, tone is normal in all 4 extremities. PSYCHIATRIC: Alert and oriented -3. Appropriate affect. Intact judgment and insight. - Labs CBC & Chem 7: 01/22/20 08:03 01/22/20 08:03 Labs: Abnormal Lab Results - Last 24 Hours (Table) 01/21/20 01/22/20 01/22/20 Range/Units 20:04 06:24 08:03 RBC 3.71 L (4.30-5.90) m/uL Hgb 10.5 L (13.0-17.5) gm/dL Hct 35.3 L (39.0-53.0) % MCHC 29.6 L (31.0-37.0) g/dL RDW 22.0 H (11.5-15.5) % Plt Count 491 H (150-450) k/uL Lymphocytes # 0.4 L (1.0-4.8) k/uL Sodium (137-145) mmol/L Chloride (98-107) mmol/L BUN (9-20) mg/dL Creatinine (0.66-1.25) mg/dL Glucose (74-99) mg/dL POC Glucose (mg/dL) 188 H 119 H (75-99) mg/dL 01/22/20 01/22/20 Range/Units 08:03 12:01 RBC (4.30-5.90) m/uL Hgb (13.0-17.5) gm/dL Hct (39.0-53.0) % MCHC (31.0-37.0) g/dL RDW (11.5-15.5) % Plt Count (150-450) k/uL Lymphocytes # (1.0-4.8) k/uL Sodium 130 L (137-145) mmol/L Chloride 94 L (98-107) mmol/L BUN 32 H (9-20) mg/dL Creatinine 0.56 L (0.66-1.25) mg/dL Glucose 129 H (74-99) mg/dL POC Glucose (mg/dL) 179 H (75-99) mg/dL Assessment and Plan Assessment: 1 acute exacerbation of COPD, with secondary shortness of breath. 2 severe COPD, steroid-dependent and patient has been oxygen dependent and the patient has been on Trelegy Ellipta as maintenance regarding his advanced COPD. 3 acute on chronic hypoxic respiratory failure maintained on 2 L of oxygen by nasal cannula in the outpatient setting 4 cachexia with significant loss in total body muscle and fat mass and his current BMI 20.6 5 right upper lobe enlarging spiculated opacity/scar which has grown in size compared to the previous CAT scan from 2018. His ability of malignancy cannot be completely excluded in the right upper lobe. Nevertheless, this is a limited growth over the past one half years which makes me consider the possibility of an indolent or a slow-growing tumor. 6 acute non-STEMI with diffuse T-wave inversion positive troponins, cardiac catheterization performed 01/19/2020 revealed calcified coronary arteries with mild obstruction, being treated medically. 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 8 hyponatremia, hypochloremia 9 suspected a left breast mass, status post core biopsy by IR on 01/20/2020 10 cardiomyopathy, possibly ischemic, echo showed moderate to severe impairment of left ventricular systolic function and EF of 30-35%, mild MR, mild TR, no evidence of pulmonary hypertension Plan: The patient was seen and evaluated by Dr. Wilson Still somewhat bronchospastic and wheezy today Continue current treatment plan We will continue to follow and make further recommendations based on his clinical status I, the cosigning physician, performed a history & physical examination of the patient. Lungs sounds bilateral end expiratory wheeze, diminished. Maintaining good O2 saturations in the 90s on 5 L/m per nasal cannula. I discussed the assessment and plan of care with my nurse practitioner, Clarisa Hammond. I attest to the above note as dictated by her.
[2020-01-22 17:22] LABS: Glucose,Whole Blood 194 mg/dL (75-99)
[2020-01-22] MEDS: SYMBICORT 160-4.5 MCG INHALER INHALATION SCH (19:33)
[2020-01-22 20:15] LABS: Glucose,Whole Blood 172 mg/dL (75-99)
[2020-01-22] MEDS: LOSARTAN 50 MG TAB PO SCH (21:04)
[2020-01-23 06:26] LABS: Glucose,Whole Blood 169 mg/dL (75-99)
[2020-01-23] MEDS: INSULIN ASPART (NovoLOG) 100 UNIT/ML VIAL SQ SCH ×4 (06:30→20:36)
[2020-01-23] MEDS: methylPREDNISolone SOD SUCCI 125 MG/2 ML VIAL IV SCH ×4 (06:31→23:29)
[2020-01-23] MEDS: IPRATROPIUM-ALBUTEROL 3 ML NEB INHALATION PRN ×4 (07:24→20:29)
[2020-01-23] MEDS: SYMBICORT 160-4.5 MCG INHALER INHALATION SCH ×2 (07:24→20:29)
[2020-01-23] MEDS: FUROSEMIDE 10 MG/ML 2 ML VIAL IV SCH ×2 (09:00→20:36)
[2020-01-23] MEDS: HEPARIN SODIUM,PORCINE 5,000 UNIT/ML 1 ML VIAL SQ SCH ×3 (09:00→23:28)
[2020-01-23] MEDS: ASPIRIN 81 MG PO SCH (09:00)
[2020-01-23] MEDS: METOPROLOL TARTRATE 50 MG TAB PO SCH ×2 (09:00→20:36)
[2020-01-23] MEDS ORDERED: ALPRAZolam 0.25 MG TAB PO PRN (10:32)
--- NOTE | 2020-01-23 10:50 | P.PN ---
<Anna Garcia Rosita - Last Filed: 01/23/20 10:44> Subjective Progress Note Date: 01/23/20 CHIEF COMPLAINT: Left breast mass HISTORY OF PRESENT ILLNESS: Patient examined this morning at the bedside. He is status post core biopsy of left breast on 01/20/2020. Results are pending. Patient denies any pain or discomfort his left breast. He reports feeling short of breath this morning and states he was unable to eat his breakfast this morning due to his dyspnea. PHYSICAL EXAM: VITAL SIGNS: Reviewed. GENERAL: Well-developed in no acute distress, however is short of breath during examination. HEENT: No sclera icterus. Extraocular movements grossly intact. Moist buccal mucosa. Head is atraumatic, normocephalic. ABDOMEN: Soft. Nondistended. Nontender. NEUROLOGIC: Alert and oriented. Cranial nerves II through XII grossly intact. CHEST: Left breast with approximately 1 inch x 1 inch palpable firm nonmobile mass located at approximately the 11oclock position. There is hyperpigmentation of the skin surrounding this mass as well as some minimal skin retraction. No palpable axillary adenopathy. ASSESSMENT: 1. Left breast mass PLAN: Await biopsy results of left breast/chest mass. Further recommendations pending results of biopsy Nurse practitioner note has been reviewed by physician. Signing provider agrees with the documented findings, assessment, and plan of care. Objective - Vital Signs Vital signs: Vital Signs Temp 99.4 F 01/23/20 08:00 Pulse 109 H 01/23/20 08:00 Resp 18 01/23/20 08:00 BP 146/56 01/23/20 08:00 Pulse Ox 90 L 01/23/20 08:00 Intake & Output 01/22/20 01/23/20 01/23/20 18:59 06:59 18:59 Intake Total 360 Output Total 250 Balance 360 -250 Weight 44 kg Intake: Oral 360 Output: Urine 250 Other: Voiding Method Urinal Urinal # Voids 1 1 # Bowel Movements 1 - Labs CBC & Chem 7: 01/22/20 08:03 01/22/20 08:03 Labs: Abnormal Lab Results - Last 24 Hours (Table) 01/22/20 01/22/20 01/22/20 Range/Units 12:01 17:14 20:13 POC Glucose (mg/dL) 179 H 194 H 172 H (75-99) mg/dL 01/23/20 Range/Units 06:24 POC Glucose (mg/dL) 169 H (75-99) mg/dL <Parag Aceves - Last Filed: 01/23/20 14:08> Subjective as above. Spoke with pathology. Results anticipated tomorrow. Otherwise having persistent shortness of breath. Will follow. Objective - Vital Signs Vital signs: Vital Signs Temp 98.4 F 01/23/20 12:00 Pulse 82 01/23/20 12:00 Resp 18 01/23/20 12:00 BP 108/53 01/23/20 12:00 Pulse Ox 95 01/23/20 12:00 Intake & Output 01/22/20 01/23/20 01/23/20 18:59 06:59 18:59 Intake Total 360 Output Total 250 Balance 360 -250 Weight 44 kg Intake: Oral 360 Output: Urine 250 Other: Voiding Method Urinal Urinal # Voids 1 1 # Bowel Movements 1 - Labs CBC & Chem 7: 01/22/20 08:03 01/22/20 08:03 Labs: Abnormal Lab Results - Last 24 Hours (Table) 01/22/20 01/22/20 01/23/20 Range/Units 17:14 20:13 06:24 POC Glucose (mg/dL) 194 H 172 H 169 H (75-99) mg/dL 01/23/20 Range/Units 11:57 POC Glucose (mg/dL) 137 H (75-99) mg/dL
--- NOTE | 2020-01-23 11:18 | ECHOF ---
Referral Reason:lv function MEASUREMENTS -------- HEIGHT: 162.6 cm WEIGHT: 44.0 kg BP: IVSd: 1.0 cm (0.6 - 1.1) LVIDd: 4.7 cm (3.9 - 5.3) LVPWd: 1.2 cm (0.6 - 1.1) IVSs: 1.3 cm LVIDs: 3.3 cm LVPWs: 1.2 cm FINDINGS -------- Sinus rhythm. This was a technically difficult study with suboptimal views. Limited Study The left ventricular size is normal. Overall left ventricular systolic function is mild-moderately impaired with, an EF between 40 - 45 %. Lumason used CONCLUSIONS -------- 1. Overall left ventricular systolic function is mild-moderately impaired with, an EF between 40 - 45 %. 2. Lumason used PRECINCT CAPTAIN: Anai Roach RDCS
[2020-01-23 11:58] LABS: Glucose,Whole Blood 137 mg/dL (75-99)
--- NOTE | 2020-01-23 13:11 | FL ---
Modified barium swallow HISTORY: Dysphasia, rule out aspiration 2 minutes 51 seconds fluoroscopy time. No images obtained. Patient was evaluated in real-time fluoroscopy in lateral projection during ingestion of food and joceline ped Barium. There is no laryngeal penetration or madeline aspiration. There is some excessive tongue motion, difficu lty initiating the swallow. Patient with a tremor during the exam. IMPRESSION: No abnormality of swallowing identified other than delay in initiation of the swallow. Co rrelate for possible Parkinson's disease.
--- NOTE | 2020-01-23 13:55 | P.PN ---
Subjective Progress Note Date: 01/23/20 Principal diagnosis: 74-year-old male patient with advanced COPD with a baseline FEV1 of 24% of predicted, and a total lung capacity of 127% of predicted and diffusion capacity of 23% of predicted consistent with severe advanced COPD. The patient has been followed up in our office. The patient has been maintained on Trelegy Ellipta as maintenance in addition to her maintenance prednisone of 10 mg on a daily basis and oxygen 2 L/m 24 7. The patient has a portable concentrator. The patient also has known scar in the right apical area which needs to be monitored. Based on his advanced comorbidities and advanced COPD, no further workup has been done regarding this abnormal opacity/scar in the right upper lobe. Note that he has diffuse emphysema with upper lobe predominance and there is no mediastinal lymphadenopathy. His last hospitalization for COPD exacerbation was back in 2018. The patient comes into the MRSA problem because of worsening shortness of breath and increased cough and increased sputum production. His primary medical doctor wanted to come into the hospital to be evaluated. He has no fever. Has no chills. No nausea vomiting or abdominal pain. He has significant limitation of exercise capacity secondary to advanced COPD. He denies having any swelling in lower extremities. He denied having any calf pain or tenderness. A CT angios and was done in the [facility] that showed no evidence of any pulmonary embolism. There was diffuse emphysema and as for the right upper lobe opacity, this was again seen at the pleural-based lesion that has increased in size compared to the previous CAT scan from 10/23/2018. It showed some spiculation and it was measuring 2.4 x 2.4 x 2.1 cm in size. There is some scarring in the lung bases bilaterally. There is extensive edematous changes throughout the lung torres bilaterally. There is also a left breast opacity noted. The EKG was consistent with sinus tachycardia with occasional PVCs. There were T-wave inversions that would raise the possibility of an underlying anterolateral ischemia. No ST segment elevations. The patient had abnormalities and troponin with levels being 0.387 and 0.331 respectively 2. His sodium level came up 124. White cell count 11.2 with a hemoglobin of 11.0 and a platelet count of 385. On 01/19/2020 patient seen in follow-up on selective care unit, patient is resting in bed, remains on high flow oxygen currently at 6 L, his pulse ox of 93-99%, she still gets very short of breath with exertion, conversation, occasional cough, with no phlegm production. Denies chest pain, patient had elevation of his troponins, cardiology is following, and patient is scheduled for cardiac catheterization today. Echocardiogram has been taken, report is pending, patient is on 0.9 normal saline at a rate of 75 ML per hour, heparin infusion per weight-based protocol. Today's labs have been reviewed, showing low blood cell, 4.0, hemoglobin is 9.9, serum sodium has slightly improved on today's labs, and is up to 127, potassium is 5.3, chloride is 94, BUN is 19, creatinine is 0.54, [place] [address]. His echocardiogram showed mild concentric LVH, moderate to severe impairment of his left ventricular systolic function with an EF of 30-35%, mild mitral regurg, mild tricuspid regurg. No evidence of pulmonary hypertension. On 01/23/2020 patient seen in follow-up on selective care unit. He is awake and alert, in no acute distress, sounding better on today's exam, less bronchospastic, lung sounds overall are diminished, patient is significantly short of breath with any exertion. He is currently on 5 L of oxygen the pulse ox of 95%, hemodynamically stable, he is afebrile. He has been able to walk to the bathroom with supervision however he gets very short of breath, and desaturates. Lung sounds are markedly diminished, he continues on IV steroids, IV diuretics at 20 mg every 12 hours, and nebulized bronchodilators. Patient is status post left breast mass fine-needle aspirate biopsy, and the results are pending at this time. His repeat echocardiogram on 01/23/2020 showed mild to moderate impairment of the left ventricle systolic function and EF between 40- 45%. Vital signs are stable, patient is slightly tachycardic, patient is status post heart catheterization which revealed calcified coronary arteries in multiple areas but no significant obstructive disease. 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 And patient is being managed medically. Objective - Vital Signs Vital signs: Vital Signs Temp 98.4 F 01/23/20 12:00 Pulse 82 01/23/20 12:00 Resp 18 01/23/20 12:00 BP 108/53 01/23/20 12:00 Pulse Ox 95 01/23/20 12:00 Intake & Output 01/22/20 01/23/20 01/23/20 18:59 06:59 18:59 Intake Total 360 Output Total 250 Balance 360 -250 Weight 44 kg Intake: Oral 360 Output: Urine 250 Other: Voiding Method Urinal Urinal # Voids 1 1 # Bowel Movements 1 - Exam GENERAL EXAM: Alert, very pleasant, 74-year-old white male, on 5 L per high flow oxygen, with a pulse ox of 95% comfortable in no apparent distress. HEAD: Normocephalic/atraumatic. EYES: Normal reaction of pupils, equal size. Conjunctiva pink, sclera white. NOSE: Clear with pink turbinates. THROAT: No erythema or exudates. NECK: No masses, no JVD, no thyroid enlargement, no adenopathy. CHEST: No chest wall deformity. Symmetrical expansion. Left breast firm irregular lesion, and right posterior neck and upper back area firm irregular lesion LUNGS: Markedly diminished breath sounds bilaterally with few scattered wheezes CVS: Regular rate and rhythm, normal S1 and S2, no gallops, no murmurs, no rubs ABDOMEN: Soft, nontender. No hepatosplenomegaly, normal bowel sounds, no guarding or rigidity. EXTREMITIES: No clubbing, no edema, no cyanosis, 2+ pulses and upper and lower extremities. MUSCULOSKELETAL: Muscle strength and tone normal. SPINE: No scoliosis or deformity SKIN: No rashes CENTRAL NERVOUS SYSTEM: Alert and oriented -3. No focal deficits, tone is normal in all 4 extremities. PSYCHIATRIC: Alert and oriented -3. Appropriate affect. Intact judgment and insight. - Labs CBC & Chem 7: 01/22/20 08:03 01/22/20 08:03 Labs: Abnormal Lab Results - Last 24 Hours (Table) 01/22/20 01/22/20 01/23/20 Range/Units 17:14 20:13 06:24 POC Glucose (mg/dL) 194 H 172 H 169 H (75-99) mg/dL 01/23/20 Range/Units 11:57 POC Glucose (mg/dL) 137 H (75-99) mg/dL Assessment and Plan Plan: Assessment: 1 acute exacerbation of COPD, with secondary shortness of breath. 2 severe COPD, steroid-dependent and patient has been oxygen dependent and the patient has been on urology Trelegy Ellipta as maintenance regarding his advanced COPD. 3 chronic hypoxic respiratory failure maintained on 2 L of oxygen by nasal cannula 4 cachexia with significant loss in total body muscle and fat mass and his current BMI 20.6 5 right upper lobe enlarging spiculated opacity/scar which has grown in size compared to the previous CAT scan from 2018. His ability of malignancy cannot be completely excluded in the right upper lobe. Nevertheless, this is a limited growth over the past one half years which makes me consider the possibility of an indolent or a slow-growing tumor. 6 acute non-STEMI with diffuse T-wave inversion positive troponins, currently on IV heparin 7 history of hemachromatosis with previous history of phlebotomy. 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 Repeat echocardiogram on 01/23/2020 showed mild to moderate impairment of left ventricle systolic function and EF of 40-45% Plan: Continue current medical treatment, IV Lasix and IV steroids, nebulized bronchodilators. Vital signs are stable, no acute events overnight, patient becomes very dyspneic with any exertion, he has very poor underlying pulmonary function with a FEV1 of 24% of predicted, a couple other comorbidities, overall general medical debility. His family are realistic in their expectations related to his underlying functional capacity. Have spoken to us about possibility of transferring the patient back home with palliative care. We'll consult discharge planning to facilitate this process. We'll continue colin pportive treatment I performed a history & physical examination of the patient and discussed their management with my nurse practitioner, Jeny Moreno. I reviewed the nurse practitioner's note and agree with the documented findings and plan of care. Lung sounds are positive for a few scattered wheezes. The findings and the impression was discussed with the patient. I attest to the documentation by the nurse practitioner. Time with Patient: Less than 30
[2020-01-23 17:19] LABS: Glucose,Whole Blood 149 mg/dL (75-99)
[2020-01-23 20:31] LABS: Glucose,Whole Blood 169 mg/dL (75-99)
[2020-01-23] MEDS: LOSARTAN 50 MG TAB PO SCH (20:36)
--- NOTE | 2020-01-24 01:50 | P.PN ---
Subjective Progress Note Date: 01/22/20 Principal diagnosis: Acute COPD exac NSTEMI Patient is a 74-year-old male with a known history of COPD, chronic hypoxic respiratory failure on home oxygen and steroid-dependent, bilateral lower extremity edema, hematochromatosis and previous history of smoking and other medical problems presents to ER with complaints of worsening shortness of breath cough and increased sputum production. Patient was seen by his primary care physician and sent him to ER. Otherwise patient denied any complaints of chest pain. No headache or dizziness or lightheadedness. No fever no chills. No recent illnesses. No nausea vomiting or abdominal pain or diarrhea. Patient also states that his right leg is chronically swollen than the left. Denied any calf pain. Denied any history of blood clots. Chest x-ray showed vague basilar interstitial infiltrates are suggested. C orrelate for developing pneumonia. CT angiogram of the chest was done showed interval increase in size in the right upper lobe lung mass. Left breast mass. Emphysema. No evidence of pulmonary embolus. Small effusions and associated atelectasis, interstitial lung disease. Borderline aortic aneurysm. EKG showed T wave inversions in the lateral leads. Sinus tachycardia. PVCs. Laboratory data showed WBC 11.2, hemoglobin 11.0, RDW 22, sodium 124, potassium 4.8, chloride 488, BUN 18 and creatinine 0.62 Troponin 0 0.387, 0.331, 0.234 Albumin 3.1 Lactic acid level is 1.7 01/19/2020 Patient is currently lying in the bed resting having dyspnea and also requiring oxygen at 6 L via nasal cannula. Patient still gets very dyspneic with exertion. Occasional cough. No sputum production. Patient had cardiac catheterization done today showed nonobstructive coronaries. Patient has orthopnea requiring elevation of the head of the bed. Laboratory data showed WBC 4.0, hemoglobin 9.9, RDW 1366, sodium 127, potassium 5.3 Chloride 94 BUN 19 and creatinine 0.54 proBNP is 26 100 2D echocardiogram showed overall left ventricular systolic function is moderate to severely impaired. Ejection fraction 30 to 35%. 01/20/2020 Patient is currently lying in the bed still very dyspneic. IV Solu-Medrol changed to 60 mg every 6 hourly. Patient is on oxygen via nasal cannula at 6 L. Patient is also on IV diuretics. Laboratory data showed WBC 14.0, hemoglobin 9.9, creatinine level is 0.56. General surgery is planning for core needle biopsy of the left breast mass. Discussed with the family at bedside. 01/21/2020 Patient is currently lying in the bed comfortably. Still having exertional shortness of breath. Wheezing is improved. Chest x-ray showed COPD and mild cardiomegaly. Patient is being continued on IV Solu-Medrol, breathing treatments and IV diuretics. Lab data showed WBC 7.3, hemoglobin 10.6, platelets 477 Sodium 130, potassium 4.4, chloride 93, BUN 29 creatinine 0.6 Calcium 9.4 Patient underwent core needle biopsy of 3 left breast mass yesterday. Pathology is pending. Decreases ejection fraction likely to Takotsubo. 01/22/2020 Patient is currently lying in the bed comfortably. Still requiring oxygen at 5 L via nasal cannula. Otherwise bilateral air entry is much improved today. Some exertional wheezing is still present. Lab data showed sodium 130, c reatinine 0.56. Patient is being continued on duo nebs, Symbicort and IV steroids and IV diuretics. Cardiology and pulmonary is following. Current medications reviewed. Objective - Vital Signs Vital signs: Vital Signs Temp 98.1 F 01/22/20 20:00 Pulse 98 01/22/20 20:00 Resp 20 01/22/20 20:00 BP 101/59 01/22/20 20:00 Pulse Ox 93 L 01/22/20 20:00 Intake & Output 01/22/20 01/22/20 01/23/20 06:59 18:59 06:59 Intake Total 360 Output Total 200 100 Balance -200 360 -100 Weight 40 kg Intake: Oral 360 Output: Urine 200 100 Other: Voiding Method Urinal Urinal Urinal # Voids 2 1 # Bowel Movements 1 - Exam PHYSICAL EXAMINATION: Patient is lying in the bed comfortably, no acute distress, awake alert and oriented.. HEENT: Normocephalic. Neck is supple. Pupils reactive. Nostrils clear. Oral cavity is moist. Ears reveal no drainage. Neck reveals no JVD, carotid bruits, or thyromegaly. CHEST EXAMINATION: Trachea is central. Symmetrical expansion. Bilateral Improved air entry and expiratory wheezing.. CARDIAC: Normal S1, S2 with no gallops. No murmurs ABDOMEN: Soft. Bowel sounds normal. No organomegaly. No abdominal bruits. Extremities: 2+ edema.. No clubbing or cyanosis Neurologically awake, alert, oriented x3 with well-coordinated movements. No focal deficits noted Skin: No rash or skin lesions. Psychiatric: Coperative. Nonsuicidal Musculoskeletal: No joint swelling or deformity. Normal range of motion. - Labs CBC & Chem 7: 01/22/20 08:03 01/22/20 08:03 Labs: Abnormal Lab Results - Last 24 Hours (Table) 01/22/20 01/22/20 01/22/20 Range/Units 06:24 08:03 08:03 RBC 3.71 L (4.30-5.90) m/uL Hgb 10.5 L (13.0-17.5) gm/dL Hct 35.3 L (39.0-53.0) % MCHC 29.6 L (31.0-37.0) g/dL RDW 22.0 H (11.5-15.5) % Plt Count 491 H (150-450) k/uL Lymphocytes # 0.4 L (1.0-4.8) k/uL Sodium 130 L (137-145) mmol/L Chloride 94 L (98-107) mmol/L BUN 32 H (9-20) mg/dL Creatinine 0.56 L (0.66-1.25) mg/dL Glucose 129 H (74-99) mg/dL POC Glucose (mg/dL) 119 H (75-99) mg/dL 01/22/20 01/22/20 01/22/20 Range/Units 12:01 17:14 20:13 RBC (4.30-5.90) m/uL Hgb (13.0-17.5) gm/dL Hct (39.0-53.0) % MCHC (31.0-37.0) g/dL RDW (11.5-15.5) % Plt Count (150-450) k/uL Lymphocytes # (1.0-4.8) k/uL Sodium (137-145) mmol/L Chloride (98-107) mmol/L BUN (9-20) mg/dL Creatinine (0.66-1.25) mg/dL Glucose (74-99) mg/dL POC Glucose (mg/dL) 179 H 194 H 172 H (75-99) mg/dL Assessment and Plan Assessment: Shortness of breath secondary to acute COPD exacerbation and also interval increase in the right upper lobe mass and CHF Severe COPD on home oxygen and steroid-dependent Acute CHF with systolic dysfunction ejection fraction 35 to 30%/ Apical bal looning syndrome Acute non-ST elevated MT with elevated troponin level. Trending down now. Chronic hypoxic respiratory failure secondary to COPD currently on 2 L oxygen via nasal cannula at home. Right upper lobe lung mass increasing in size Left breast mass shown in the CT chest HyponatremiaLikely hypovolemic gentle IV hydration. Moderate protein calorie malnutrition History of hematochromatosis Previous history of smoking DVT prophylaxis. Patient is currently on heparin drip. Plan: Patient will be continued on duo nebs, IV steroids and oxygen therapy.Patient was started on aspirin, statins, Lasix 20 mg IV twice daily. Patient is status post cardiac catheterization. Pulmonary and cardiology is following. Patient will was seen by pulmonary and recommended outpatient work-up for right upper lobe mass. Prognosis guarded with multiple medical problems and comorbid conditions. Time with Patient: Greater than 30
--- NOTE | 2020-01-24 01:53 | P.PN ---
Subjective Progress Note Date: 01/23/20 Principal diagnosis: Acute COPD exac NSTEMI Patient is a 74-year-old male with a known history of COPD, chronic hypoxic respiratory failure on home oxygen and steroid-dependent, bilateral lower extremity edema, hematochromatosis and previous history of smoking and other medical problems presents to ER with complaints of worsening shortness of breath cough and increased sputum production. Patient was seen by his primary care physician and sent him to ER. Otherwise patient denied any complaints of chest pain. No headache or dizziness or lightheadedness. No fever no chills. No recent illnesses. No nausea vomiting or abdominal pain or diarrhea. Patient also states that his right leg is chronically swollen than the left. Denied any calf pain. Denied any history of blood clots. Chest x-ray showed vague basilar interstitial infiltrates are suggested. C orrelate for developing pneumonia. CT angiogram of the chest was done showed interval increase in size in the right upper lobe lung mass. Left breast mass. Emphysema. No evidence of pulmonary embolus. Small effusions and associated atelectasis, interstitial lung disease. Borderline aortic aneurysm. EKG showed T wave inversions in the lateral leads. Sinus tachycardia. PVCs. Laboratory data showed WBC 11.2, hemoglobin 11.0, RDW 22, sodium 124, potassium 4.8, chloride 488, BUN 18 and creatinine 0.62 Troponin 0 0.387, 0.331, 0.234 Albumin 3.1 Lactic acid level is 1.7 01/19/2020 Patient is currently lying in the bed resting having dyspnea and also requiring oxygen at 6 L via nasal cannula. Patient still gets very dyspneic with exertion. Occasional cough. No sputum production. Patient had cardiac catheterization done today showed nonobstructive coronaries. Patient has orthopnea requiring elevation of the head of the bed. Laboratory data showed WBC 4.0, hemoglobin 9.9, RDW 1366, sodium 127, potassium 5.3 Chloride 94 BUN 19 and creatinine 0.54 proBNP is 26 100 2D echocardiogram showed overall left ventricular systolic function is moderate to severely impaired. Ejection fraction 30 to 35%. 01/20/2020 Patient is currently lying in the bed still very dyspneic. IV Solu-Medrol changed to 60 mg every 6 hourly. Patient is on oxygen via nasal cannula at 6 L. Patient is also on IV diuretics. Laboratory data showed WBC 14.0, hemoglobin 9.9, creatinine level is 0.56. General surgery is planning for core needle biopsy of the left breast mass. Discussed with the family at bedside. 01/21/2020 Patient is currently lying in the bed comfortably. Still having exertional shortness of breath. Wheezing is improved. Chest x-ray showed COPD and mild cardiomegaly. Patient is being continued on IV Solu-Medrol, breathing treatments and IV diuretics. Lab data showed WBC 7.3, hemoglobin 10.6, platelets 477 Sodium 130, potassium 4.4, chloride 93, BUN 29 creatinine 0.6 Calcium 9.4 Patient underwent core needle biopsy of 3 left breast mass yesterday. Pathology is pending. Decreases ejection fraction likely to Takotsubo. 01/22/2020 Patient is currently lying in the bed comfortably. Still requiring oxygen at 5 L via nasal cannula. Otherwise bilateral air entry is much improved today. Some exertional wheezing is still present. Lab data showed sodium 130, c reatinine 0.56. Patient is being continued on duo nebs, Symbicort and IV steroids and IV diuretics. Cardiology and pulmonary is following. 01/23/2020 Patient is currently lying in bed comfortably. Still requiring oxygen at 5 L via nasal cannula. Bilateral diminished air entry and expiratory wheezing is still present. Patient has been afebrile. No nausea vomiting or abdominal pain needed. Patient does have decreased oral intake otherwise. Patient is being continued on Lasix 20 mg every 12 hours and also IV steroids and duo nebs. Repeat echocardiogram on 2019 showed mild to moderate impairment of the left ventricle. Ejection fraction 40 to 45%. Left breast biopsy report is pending. No complaints of chest pain. Patient is afebrile. Current medications reviewed. Objective - Vital Signs Vital signs: Vital Signs Temp 98.5 F 01/23/20 15:25 Pulse 103 H 01/23/20 20:50 Resp 18 01/23/20 20:50 BP 110/61 01/23/20 15:25 Pulse Ox 92 L 01/23/20 20:50 Intake & Output 01/23/20 01/23/20 01/24/20 06:59 18:59 06:59 Output Total 250 500 350 Balance -250 -500 -350 Weight 44 kg Output: Urine 250 500 350 Other: Voiding Method Urinal # Voids 4 # Bowel Movements 1 - Exam PHYSICAL EXAMINATION: Patient is lying in the bed comfortably, no acute distress, awake alert and oriented.. HEENT: Normocephalic. Neck is supple. Pupils reactive. Nostrils clear. Oral cavity is moist. Ears reveal no drainage. Neck reveals no JVD, carotid bruits, or thyromegaly. CHEST EXAMINATION: Trachea is central. Symmetrical expansion. Bilateral Improved air entry and expiratory wheezing.. CARDIAC: Normal S1, S2 with no gallops. No murmurs ABDOMEN: Soft. Bowel sounds normal. No organomegaly. No abdominal bruits. Extremities: 2+ edema.. No clubbing or cyanosis Neurologically awake, alert, oriented x3 with well-coordinated movements. No focal deficits noted Skin: No rash or skin lesions. Psychiatric: Coperative. Nonsuicidal Musculoskeletal: No joint swelling or deformity. Normal range of motion. - Labs CBC & Chem 7: 01/22/20 08:03 01/22/20 08:03 Labs: Abnormal Lab Results - Last 24 Hours (Table) 01/23/20 01/23/20 01/23/20 Range/Units 06:24 11:57 17:18 POC Glucose (mg/dL) 169 H 137 H 149 H (75-99) mg/dL 01/23/20 Range/Units 20:29 POC Glucose (mg/dL) 169 H (75-99) mg/dL Assessment and Plan Assessment: Shortness of breath secondary to acute COPD exacerbation and also interval increase in the right upper lobe mass (slow growing) and CHF Severe COPD on home oxygen and steroid-dependent Acute CHF with systolic dysfunction ejection fraction 35 to 30%/ Apical ballooning syndrome Acute non-ST elevated UT with elevated troponin level. Trending down now. Chronic hypoxic respiratory failure secondary to COPD currently on 2 L oxygen via nasal cannula at home. Right upper lobe lung mass increasing in size Left breast mass shown in the CT chest. s/p biopsy HyponatremiaLikely hypovolemic gentle IV hydration. Moderate protein calorie malnutrition History of hematochromatosis Previous history of smoking DVT prophylaxis. Patient is currently on heparin drip. Plan: Patient will be continued on duo nebs, IV steroids and oxygen therapy.Patient was started on aspirin, statins, Lasix 20 mg IV twice daily. Patient is status post cardiac catheterization. Pulmonary and cardiology is following. Patient will was seen by pulmonary and recommended outpatient work-up for right upper lobe mass. Prognosis guarded with multiple medical problems and comorbid conditions. Time with Patient: Greater than 30
[2020-01-24 06:22] LABS: Glucose,Whole Blood 134 mg/dL (75-99)
[2020-01-24] MEDS: methylPREDNISolone SOD SUCCI 125 MG/2 ML VIAL IV SCH ×4 (06:29→22:37)
[2020-01-24] MEDS: INSULIN ASPART (NovoLOG) 100 UNIT/ML VIAL SQ SCH ×4 (06:30→20:19)
[2020-01-24 06:32] LABS: Anisocytosis Moderate; Basophils % (A) 0 %; Eosinophils # (A) 0.1 k/uL (0-0.7); Eosinophils % (A) 1 %; HCT 35.2 % (39.0-53.0); Hypochromasia Marked; Lymphocytes # (A) 0.3 k/uL (1.0-4.8); Lymphocytes % (A) 3 %; MCH 30.3 pg (25.0-35.0); MCHC 31.1 g/dL (31.0-37.0); MCV 97.5 fL (80.0-100.0); Macrocytosis Moderate; Mean Platelet Volume 7.4; Monocytes # (A) 0.4 k/uL (0-1.0); Monocytes % (A) 4 %; Neutrophils # (A) 9.2 k/uL (1.3-7.7); Neutrophils % (A) 91 %; Platelet Count 457 k/uL (150-450); RBC 3.61 m/uL (4.30-5.90); RDW 21.4 % (11.5-15.5)
[2020-01-24 06:41] LABS: African American GFR (CKD) >90 (>60 ml/min/1.73 sqM); Anion Gap 5 mmol/L; Blood Urea Nitrogen 41 mg/dL (9-20); Calcium 9.3 mg/dL (8.4-10.2); Carbon Dioxide 37 mmol/L (22-30); Chloride 91 mmol/L (98-107); Glucose 121 mg/dL (74-99); Non-African American GFR(CKD) >90 (>60 ml/min/1.73 sqM); Potassium 4.1 mmol/L (3.5-5.1); Sodium 133 mmol/L (137-145)
[2020-01-24] MEDS: IPRATROPIUM-ALBUTEROL 3 ML NEB INHALATION PRN ×2 (08:54→12:35)
[2020-01-24] MEDS: SYMBICORT 160-4.5 MCG INHALER INHALATION SCH (08:55)
[2020-01-24] MEDS: HEPARIN SODIUM,PORCINE 5,000 UNIT/ML 1 ML VIAL SQ SCH ×3 (09:10→22:38)
[2020-01-24] MEDS: FUROSEMIDE 10 MG/ML 2 ML VIAL IV SCH ×2 (09:10→20:19)
[2020-01-24] MEDS: ASPIRIN 81 MG PO SCH (09:10)
[2020-01-24] MEDS: METOPROLOL TARTRATE 50 MG TAB PO SCH ×2 (09:10→20:19)
--- NOTE | 2020-01-24 09:53 | P.PN ---
<Anna Garcia Rosita - Last Filed: 01/24/20 09:51> Subjective Progress Note Date: 01/24/20 CHIEF COMPLAINT: Left breast mass HISTORY OF PRESENT ILLNESS: Patient examined this morning at the bedside. He is status post core biopsy of left breast on 01/20/2020. Results are pending. Patient denies any pain or discomfort his left breast. Patient developed worsening shortness of breath overnight and required a nonrebreather mask. However, his breathing appears improved this morning. He is on 6L NC. He was made a DNR. PHYSICAL EXAM: VITAL SIGNS: Reviewed. GENERAL: Well-developed in no acute distress. HEENT: No sclera icterus. Extraocular movements grossly intact. Moist buccal mucosa. Head is atraumatic, normocephalic. ABDOMEN: Soft. Nondistended. Nontender. NEUROLOGIC: Alert and oriented. Cranial nerves II through XII grossly intact. CHEST: Left breast with approximately 1 inch x 1 inch palpable firm nonmobile mass located at approximately the 11oclock position. There is hyperpigmentation of the skin surrounding this mass as well as some minimal skin retraction. No palpable axillary adenopathy. ASSESSMENT: 1. Left breast mass PLAN: Await biopsy results of left breast/chest mass. Further recommendations pending results of biopsy Nurse practitioner note has been reviewed by physician. Signing provider agrees with the documented findings, assessment, and plan of care. Objective - Vital Signs Vital signs: Vital Signs Temp 98.1 F 01/24/20 03:03 Pulse 96 01/24/20 09:05 Resp 20 01/24/20 03:03 BP 128/61 01/24/20 03:03 Pulse Ox 94 L 01/24/20 00:16 Intake & Output 01/23/20 01/24/20 01/24/20 18:59 06:59 18:59 Output Total 500 575 Balance -500 -575 Output: Urine 500 575 Other: Voiding Method Urinal # Voids 4 1 # Bowel Movements 1 - Labs CBC & Chem 7: 01/24/20 06:10 01/24/20 06:10 Labs: Abnormal Lab Results - Last 24 Hours (Table) 01/23/20 01/23/20 01/23/20 Range/Units 11:57 17:18 20:29 RBC (4.30-5.90) m/uL Hgb (13.0-17.5) gm/dL Hct (39.0-53.0) % RDW (11.5-15.5) % Plt Count (150-450) k/uL Neutrophils # (1.3-7.7) k/uL Lymphocytes # (1.0-4.8) k/uL Sodium (137-145) mmol/L Chloride (98-107) mmol/L Carbon Dioxide (22-30) mmol/L BUN (9-20) mg/dL Creatinine (0.66-1.25) mg/dL Glucose (74-99) mg/dL POC Glucose (mg/dL) 137 H 149 H 169 H (75-99) mg/dL 01/24/20 01/24/20 01/24/20 Range/Units 06:10 06:10 06:21 RBC 3.61 L (4.30-5.90) m/uL Hgb 11.0 L (13.0-17.5) gm/dL Hct 35.2 L (39.0-53.0) % RDW 21.4 H (11.5-15.5) % Plt Count 457 H (150-450) k/uL Neutrophils # 9.2 H (1.3-7.7) k/uL Lymphocytes # 0.3 L (1.0-4.8) k/uL Sodium 133 L (137-145) mmol/L Chloride 91 L (98-107) mmol/L Carbon Dioxide 37 H (22-30) mmol/L BUN 41 H (9-20) mg/dL Creatinine 0.59 L (0.66-1.25) mg/dL Glucose 121 H (74-99) mg/dL POC Glucose (mg/dL) 134 H (75-99) mg/dL <Parag Aceves - Last Filed: 01/24/20 18:21> Subjective As above. Still short of breath. CODE STATUS noted. Await biopsy results Objective - Vital Signs Vital signs: Vital Signs Temp 97.8 F 01/24/20 14:57 Pulse 96 01/24/20 16:24 Resp 20 01/24/20 14:57 BP 137/64 01/24/20 14:57 Pulse Ox 94 L 01/24/20 14:57 Intake & Output 01/23/20 01/24/20 01/24/20 18:59 06:59 18:59 Output Total 500 575 200 Balance -500 -575 -200 Weight 44 kg Output: Urine 500 575 200 Other: Voiding Method Urinal Bedside Commode Urinal # Voids 4 1 # Bowel Movements 1 - Labs CBC & Chem 7: 01/24/20 06:10 01/24/20 06:10 Labs: Abnormal Lab Results - Last 24 Hours (Table) 01/23/20 01/24/20 01/24/20 Range/Units 20:29 06:10 06:10 RBC 3.61 L (4.30-5.90) m/uL Hgb 11.0 L (13.0-17.5) gm/dL Hct 35.2 L (39.0-53.0) % RDW 21.4 H (11.5-15.5) % Plt Count 457 H (150-450) k/uL Neutrophils # 9.2 H (1.3-7.7) k/uL Lymphocytes # 0.3 L (1.0-4.8) k/uL Sodium 133 L (137-145) mmol/L Chloride 91 L (98-107) mmol/L Carbon Dioxide 37 H (22-30) mmol/L BUN 41 H (9-20) mg/dL Creatinine 0.59 L (0.66-1.25) mg/dL Glucose 121 H (74-99) mg/dL POC Glucose (mg/dL) 169 H (75-99) mg/dL 01/24/20 01/24/20 01/24/20 Range/Units 06:21 11:44 16:13 RBC (4.30-5.90) m/uL Hgb (13.0-17.5) gm/dL Hct (39.0-53.0) % RDW (11.5-15.5) % Plt Count (150-450) k/uL Neutrophils # (1.3-7.7) k/uL Lymphocytes # (1.0-4.8) k/uL Sodium (137-145) mmol/L Chloride (98-107) mmol/L Carbon Dioxide (22-30) mmol/L BUN (9-20) mg/dL Creatinine (0.66-1.25) mg/dL Glucose (74-99) mg/dL POC Glucose (mg/dL) 134 H 219 H 138 H (75-99) mg/dL
[2020-01-24 11:46] LABS: Glucose,Whole Blood 219 mg/dL (75-99)
--- NOTE | 2020-01-24 13:44 | P.PN ---
Subjective Progress Note Date: 01/24/20 Principal diagnosis: 74-year-old male patient with advanced COPD with a baseline FEV1 of 24% of predicted, and a total lung capacity of 127% of predicted and diffusion capacity of 23% of predicted consistent with severe advanced COPD. The patient has been followed up in our office. The patient has been maintained on Trelegy Ellipta as maintenance in addition to her maintenance prednisone of 10 mg on a daily basis and oxygen 2 L/m 24 7. The patient has a portable concentrator. The patient also has known scar in the right apical area which needs to be monitored. Based on his advanced comorbidities and advanced COPD, no further workup has been done regarding this abnormal opacity/scar in the right upper lobe. Note that he has diffuse emphysema with upper lobe predominance and there is no mediastinal lymphadenopathy. His last hospitalization for COPD exacerbation was back in 2018. The patient comes into the MRSA problem because of worsening shortness of breath and increased cough and increased sputum production. His primary medical doctor wanted to come into the hospital to be evaluated. He has no fever. Has no chills. No nausea vomiting or abdominal pain. He has significant limitation of exercise capacity secondary to advanced COPD. He denies having any swelling in lower extremities. He denied having any calf pain or tenderness. A CT angios and was done in the [facility] that showed no evidence of any pulmonary embolism. There was diffuse emphysema and as for the right upper lobe opacity, this was again seen at the pleural-based lesion that has increased in size compared to the previous CAT scan from 10/23/2018. It showed some spiculation and it was measuring 2.4 x 2.4 x 2.1 cm in size. There is some scarring in the lung bases bilaterally. There is extensive edematous changes throughout the lung torres bilaterally. There is also a left breast opacity noted. The EKG was consistent with sinus tachycardia with occasional PVCs. There were T-wave inversions that would raise the possibility of an underlying anterolateral ischemia. No ST segment elevations. The patient had abnormalities and troponin with levels being 0.387 and 0.331 respectively 2. His sodium level came up 124. White cell count 11.2 with a hemoglobin of 11.0 and a platelet count of 385. On 01/19/2020 patient seen in follow-up on selective care unit, patient is resting in bed, remains on high flow oxygen currently at 6 L, his pulse ox of 93-99%, she still gets very short of breath with exertion, conversation, occasional cough, with no phlegm production. Denies chest pain, patient had elevation of his troponins, cardiology is following, and patient is scheduled for cardiac catheterization today. Echocardiogram has been taken, report is pending, patient is on 0.9 normal saline at a rate of 75 ML per hour, heparin infusion per weight-based protocol. Today's labs have been reviewed, showing low blood cell, 4.0, hemoglobin is 9.9, serum sodium has slightly improved on today's labs, and is up to 127, potassium is 5.3, chloride is 94, BUN is 19, creatinine is 0.54, [place] [address]. His echocardiogram showed mild concentric LVH, moderate to severe impairment of his left ventricular systolic function with an EF of 30-35%, mild mitral regurg, mild tricuspid regurg. No evidence of pulmonary hypertension. On 01/23/2020 patient seen in follow-up on selective care unit. He is awake and alert, in no acute distress, sounding better on today's exam, less bronchospastic, lung sounds overall are diminished, patient is significantly short of breath with any exertion. He is currently on 5 L of oxygen the pulse ox of 95%, hemodynamically stable, he is afebrile. He has been able to walk to the bathroom with supervision however he gets very short of breath, and desaturates. Lung sounds are markedly diminished, he continues on IV steroids, IV diuretics at 20 mg every 12 hours, and nebulized bronchodilators. Patient is status post left breast mass fine-needle aspirate biopsy, and the results are pending at this time. His repeat echocardiogram on 01/23/2020 showed mild to moderate impairment of the left ventricle systolic function and EF between 40- 45%. Vital signs are stable, patient is slightly tachycardic, patient is status post heart catheterization which revealed calcified coronary arteries in multiple areas but no significant obstructive disease. 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 And patient is being managed medically. On 01/24/2020 patient seen in follow-up on selective care unit, he still desaturates with any exertion, at rest seems to be comfortable, he is currently on 6 L of oxygen with a pulse ox of 93%, afebrile. This has been patient's baseline in terms of his breathing even at home, his activity tolerance is extremely limited related to his exertional dyspnea, and desaturation with light activity, patient has mostly been housebound for that reason. We spoke to the patient's son Vargas was a social and political studies professor here, updated on patient's condition, patient did not have any acute events overnight other than episode of desaturation requiring Ventimask, he is back on his 6 L. He is awake and alert, denies any acute distress at the moment, lung sounds reveal diminished breath sounds, no significant wheezing today. He passed the swallow evaluation, he started tolerating oral intake. Remains on IV steroids, and nebulized bronchodilators, he is on IV Lasix per cardiology. He is in -1075 ML fluid balance over the last 24 hours, he is using the urinal. His left breast biopsy results are still pending at this time. Patient's repeat echocardiogram showed mild to moderate impairment of the left ventricle with ejection fraction of 40- 45%. Discharge planning is in progress to transition patient home with palliative care Objective - Vital Signs Vital signs: Vital Signs Temp 98.3 F 01/24/20 11:17 Pulse 100 01/24/20 12:47 Resp 20 01/24/20 11:40 BP 123/57 01/24/20 11:17 Pulse Ox 93 L 01/24/20 11:17 Intake & Output 01/23/20 01/24/20 01/24/20 18:59 06:59 18:59 Output Total 500 575 Balance -500 -575 Output: Urine 500 575 Other: Voiding Method Urinal Urinal # Voids 4 1 # Bowel Movements 1 - Exam GENERAL EXAM: Alert, very pleasant, 74-year-old white male, on 6 L per high flow oxygen, with a pulse ox of 93% comfortable in no apparent distress. HEAD: Normocephalic/atraumatic. EYES: Normal reaction of pupils, equal size. Conjunctiva pink, sclera white. NOSE: Clear with pink turbinates. THROAT: No erythema or exudates. NECK: No masses, no JVD, no thyroid enlargement, no adenopathy. CHEST: No chest wall deformity. Symmetrical expansion. Left breast firm irregular lesion, and right posterior neck and upper back area firm irregular lesion LUNGS: Markedly diminished breath sounds bilaterally with minimal wheezes CVS: Regular rate and rhythm, normal S1 and S2, no gallops, no murmurs, no rubs ABDOMEN: Soft, nontender. No hepatosplenomegaly, normal bowel sounds, no guarding or rigidity. EXTREMITIES: No clubbing, no edema, no cyanosis, 2+ pulses and upper and lower extremities. MUSCULOSKELETAL: Muscle strength and tone normal. SPINE: No scoliosis or deformity SKIN: No rashes CENTRAL NERVOUS SYSTEM: Alert and oriented -3. No focal deficits, tone is normal in all 4 extremities. PSYCHIATRIC: Alert and oriented -3. Appropriate affect. Intact judgment and insight. - Labs CBC & Chem 7: 01/24/20 06:10 01/24/20 06:10 Labs: Abnormal Lab Results - Last 24 Hours (Table) 01/23/20 01/23/20 01/24/20 Range/Units 17:18 20:29 06:10 RBC 3.61 L (4.30-5.90) m/uL Hgb 11.0 L (13.0-17.5) gm/dL Hct 35.2 L (39.0-53.0) % RDW 21.4 H (11.5-15.5) % Plt Count 457 H (150-450) k/uL Neutrophils # 9.2 H (1.3-7.7) k/uL Lymphocytes # 0.3 L (1.0-4.8) k/uL Sodium (137-145) mmol/L Chloride (98-107) mmol/L Carbon Dioxide (22-30) mmol/L BUN (9-20) mg/dL Creatinine (0.66-1.25) mg/dL Glucose (74-99) mg/dL POC Glucose (mg/dL) 149 H 169 H (75-99) mg/dL 01/24/20 01/24/20 01/24/20 Range/Units 06:10 06:21 11:44 RBC (4.30-5.90) m/uL Hgb (13.0-17.5) gm/dL Hct (39.0-53.0) % RDW (11.5-15.5) % Plt Count (150-450) k/uL Neutrophils # (1.3-7.7) k/uL Lymphocytes # (1.0-4.8) k/uL Sodium 133 L (137-145) mmol/L Chloride 91 L (98-107) mmol/L Carbon Dioxide 37 H (22-30) mmol/L BUN 41 H (9-20) mg/dL Creatinine 0.59 L (0.66-1.25) mg/dL Glucose 121 H (74-99) mg/dL POC Glucose (mg/dL) 134 H 219 H (75-99) mg/dL Assessment and Plan Plan: Assessment: 1 acute exacerbation of COPD, with secondary shortness of breath. 2 severe COPD, steroid-dependent and patient has been oxygen dependent and the patient has been on urology Trelegy Ellipta as maintenance regarding his advanced COPD. 3 chronic hypoxic respiratory failure maintained on 2 L of oxygen by nasal ca nnula 4 cachexia with significant loss in total body muscle and fat mass and his current BMI 20.6 5 right upper lobe enlarging spiculated opacity/scar which has grown in size compared to the previous CAT scan from 2018. His ability of malignancy cannot be completely excluded in the right upper lobe. Nevertheless, this is a limited growth over the past one half years which makes me consider the possibility of an indolent or a slow-growing tumor. 6 acute non-STEMI with diffuse T-wave inversion positive troponins, currently on IV heparin 7 history of hemachromatosis with previous history of phlebotomy. 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 Repeat echocardiogram on 01/23/2020 showed mild to moderate impairment of left ventricle systolic function and EF of 40-45% Plan: No acute events overnight, other then episode of desaturation requiring Ventimask, patient is currently back on nasal cannula, comfortable at rest, does get very dyspneic and desaturates with activity, which has been normal level of functioning for him lately even at home according to his son. Patient has been mostly housebound related to his poor exercise tolerance, and exertional dyspnea. He is close to his baseline. From pulmonary perspective patient can be considered for discharge home today, and the family is requesting palliative care. He can follow up with Dr. Ogden in the office as needed I performed a history & physical examination of the patient and discussed their management with my nurse practitioner, Jeny Moreno. I reviewed the nurse practitioner's note and agree with the documented findings and plan of care. Lung sounds are positive for a few scattered wheezes. The findings and the impression was discussed with the patient. I attest to the documentation by the nurse practitioner. Time with Patient: Less than 30
[2020-01-24 15:08] VITALS: BMI 16.6
--- NOTE | 2020-01-24 15:56 | XR ---
EXAMINATION TYPE: XR chest 1V portable DATE OF EXAM: 01/24/2020 COMPARISON: Prior chest x-ray 01/21/2020 HISTORY: Congestive heart failure TECHNIQUE: Single frontal view of the chest is obtained. FINDINGS: There is no focal air space opacity, pleural effusion, or pneumothorax seen. The cardiac silhouette size is stable. Interstitium is prominent as on prior exams. Patient is rotated. Heart is dense. The osseous structures are intact with suspect spinal curvature. Contrast present within the colon. There are prominent lung lines. IMPRESSION: No acute process.
[2020-01-24] MEDS: BUDESONIDE 1 MG/2 ML NEBU INHALATION SCH ×2 (16:11→19:52)
[2020-01-24] MEDS: FORMOTEROL FUMARATE 20 MCG/2 ML NEBU INHALATION SCH ×2 (16:11→19:52)
[2020-01-24] MEDS: IPRATROPIUM-ALBUTEROL 3 ML NEB INHALATION SCH ×2 (16:11→19:52)
[2020-01-24 16:14] LABS: Glucose,Whole Blood 138 mg/dL (75-99)
--- NOTE | 2020-01-24 16:55 | PN ---
PROGRESS NOTE DATE OF SERVICE: 01/24/2020 This 74-year-old gentleman who was admitted with significant COPD, acute exacerbation, as well as right upper lobe mass and CHF is being closely monitored. The pulse ox is fluctuating. The last time the patient was hypoxic with saturations going 60. The most recent chest x-ray which was done on 01/20, which I reviewed personally, showed COPD and mild cardiomegaly. Patient is being closely monitored at this time. The patient is NO CODE, NO CPR, NO VENT. At this time. Past medical history reviewed. REVIEW OF SYSTEMS: CARDIOVASCULAR SYSTEM: No angina, palpitations. RESPIRATORY SYSTEM: As mentioned earlier. GI: As mentioned earlier. : No dysuria or retention. NERVOUS SYSTEM: Mildly confused. CURRENT MEDICATIONS: Reviewed. They include: 1. DuoNeb q.i.d. and p.r.n. 2. Xanax 0.25 t.i.d. 3. Aspirin 81 mg. 4. Symbicort 160/4.5 two puffs b.i.d. 5. Lasix. 6. Heparin. 7. NovoLog. 8. Cozaar. 9. Solu-Medrol IV. 10.Lopressor. PHYSICAL EXAMINATION: Patient is alert, oriented x2. Pulse 98, blood pressure 123/57, respiration 20, temperature 98.3, pulse ox 93% on 6 L. HEENT: Conjunctivae normal. NECK: No jugular venous distention. CARDIOVASCULAR SYSTEM: S1, S2 muffled. RESPIRATORY SYSTEM: Breath sounds diminished at the bases. Bilateral scattered rhonchi and crackles. ABDOMEN: Soft, non-tender. LEGS: No edema. No swelling. NERVOUS SYSTEM: No focal deficit. LABS: WBC 10, hemoglobin 11.1. Sodium 133, CO2 37. ASSESSMENT: 1. Chronic obstructive pulmonary disease, acute exacerbation, with acute hypoxic hypercarbic respiratory failure with possibly acute purulent tracheobronchitis. 2. Right upper lobe mass lesion possibly. 3. Congestive heart failure, acute exacerbation, with acute on chronic systolic dysfunction, ejection fraction 30% to 35%. 4. Chronic hypoxic respiratory failure home oxygen. 5. Acute yof-YR-mmvffjo-elevation myocardial infarction with elevated troponin levels. 6. Left breast mass showing on CT scan of the chest, status post biopsy. 7. Hyponatremia, likely hypovolemic. 8. Moderate protein-calorie malnutrition. 9. History of hemochromatosis. 10.Previous history of smoking. 11.Deep venous thrombosis prophylaxis. 12.Anemia of chronic disease. 13.NO CODE, NO CPR, NO VENT. RECOMMENDATIONS AND DISCUSSION: In this 74-year-old gentleman who presented with multiple complex medical issues, we will monitor the patient closely, continue the current medications, continue symptomatic treatment. I recommend the bronchodilators. Continue to monitor. Continue with steroids. The patient is NO CODE, NO CPR, NO VENT. Continue the rest of the medications. Guarded prognosis because of multiple complex medical issues. I would also recommend a repeat chest x-ray. Discussed with Piotr, the patient's son, and will discuss with the patient's regarding further course of action, including palliative care. The prognosis is guarded. Further recommendations to follow. MMSATNAML / IJN: [id number] / MTDD
[2020-01-24 20:07] LABS: Glucose,Whole Blood 188 mg/dL (75-99)
[2020-01-24] MEDS: LOSARTAN 50 MG TAB PO SCH (20:19)
[2020-01-25 06:06] LABS: Glucose,Whole Blood 138 mg/dL (75-99)
[2020-01-25] MEDS: INSULIN ASPART (NovoLOG) 100 UNIT/ML VIAL SQ SCH ×4 (06:23→20:27)
[2020-01-25] MEDS: methylPREDNISolone SOD SUCCI 125 MG/2 ML VIAL IV SCH ×3 (06:23→18:01)
[2020-01-25] MEDS: IPRATROPIUM-ALBUTEROL 3 ML NEB INHALATION SCH ×4 (08:59→21:33)
[2020-01-25] MEDS: FORMOTEROL FUMARATE 20 MCG/2 ML NEBU INHALATION SCH ×2 (08:59→21:37)
[2020-01-25] MEDS ORDERED: NON FORMULARY DRUG (Ubidecarenone [Co Q-10] 100 MG) PO SCH (09:00)
[2020-01-25] MEDS: ASPIRIN 81 MG PO SCH (09:01)
[2020-01-25] MEDS: ASCORBIC ACID 500 MG TAB PO SCH (09:01)
[2020-01-25] MEDS: METOPROLOL TARTRATE 50 MG TAB PO SCH ×2 (09:02→20:27)
[2020-01-25] MEDS: FUROSEMIDE 10 MG/ML 2 ML VIAL IV SCH ×2 (09:02→20:27)
[2020-01-25] MEDS: CYANOCOBALAMIN 500 MCG TAB PO SCH (09:02)
[2020-01-25] MEDS: HEPARIN SODIUM,PORCINE 5,000 UNIT/ML 1 ML VIAL SQ SCH ×2 (09:02→16:06)
[2020-01-25] MEDS: BUDESONIDE 1 MG/2 ML NEBU INHALATION SCH ×2 (09:06→21:33)
--- NOTE | 2020-01-25 10:10 | P.PN ---
<Anna Garcia - Last Filed: 01/25/20 10:08> Subjective Progress Note Date: 01/25/20 CHIEF COMPLAINT: Left breast mass HISTORY OF PRESENT ILLNESS: Patient examined this morning at the bedside. He is status post core biopsy of left breast on 01/20/2020. Results are pending. Patient denies any pain or discomfort his left breast. Patient continues to be short of breath but appears to be near his baseline at this time. He is on a venti mask this morning. Drinking ensure during examination. Vital signs stable. PHYSICAL EXAM: VITAL SIGNS: Reviewed. GENERAL: Well-developed in no acute distress. HEENT: No sclera icterus. Extraocular movements grossly intact. Moist buccal mucosa. Head is atraumatic, normocephalic. ABDOMEN: Soft. Nondistended. Nontender. NEUROLOGIC: Alert and oriented. Cranial nerves II through XII grossly intact. CHEST: Left breast with approximately 1 inch x 1 inch palpable firm nonmobile mass located at approximately the 11oclock position. There is hyperpigmentation of the skin surrounding this mass as well as some minimal skin retraction. No palpable axillary adenopathy. ASSESSMENT: 1. Left breast mass PLAN: Await biopsy results of left breast/chest mass. Further recommendations pending results of biopsy Nurse practitioner note has been reviewed by physician. Signing provider agrees with the documented findings, assessment, and plan of care. Objective - Vital Signs Vital signs: Vital Signs Temp 98.3 F 01/25/20 04:28 Pulse 96 01/25/20 09:21 Resp 22 01/25/20 04:28 BP 134/63 01/25/20 04:28 Pulse Ox 90 L 01/25/20 04:28 Intake & Output 01/24/20 01/25/20 01/25/20 18:59 06:59 18:59 Intake Total 240 Output Total 200 780 Balance -200 -540 Weight 44 kg Intake: Oral 240 Output: Urine 200 780 Other: Voiding Method Bedside Commode Urinal # Voids 2 # Bowel Movements 1 - Labs CBC & Chem 7: 01/24/20 06:10 01/24/20 06:10 Labs: Abnormal Lab Results - Last 24 Hours (Table) 01/24/20 01/24/20 01/24/20 Range/Units 11:44 16:13 20:05 POC Glucose (mg/dL) 219 H 138 H 188 H (75-99) mg/dL 01/25/20 Range/Units 06:05 POC Glucose (mg/dL) 138 H (75-99) mg/dL <Parag Aceves - Last Filed: 01/25/20 12:05> Subjective as above. Pathology results still pending. Anticipate results later today. I will be out of town after today. We'll sign off. Primary service to review pathology with patient. Please call covering service if needed. Objective - Vital Signs Vital signs: Vital Signs Temp 98.7 F 01/25/20 08:00 Pulse 96 01/25/20 09:21 Resp 20 01/25/20 08:00 BP 137/97 01/25/20 08:00 Pulse Ox 90 L 01/25/20 08:00 Intake & Output 01/24/20 01/25/20 01/25/20 18:59 06:59 18:59 Intake Total 240 Output Total 200 780 Balance -200 -540 Weight 44 kg Intake: Oral 240 Output: Urine 200 780 Other: Voiding Method Bedside Commode Bedside Commode Urinal Urinal # Voids 2 # Bowel Movements 1 - Labs CBC & Chem 7: 01/24/20 06:10 01/24/20 06:10 Labs: Abnormal Lab Results - Last 24 Hours (Table) 01/24/20 01/24/20 01/25/20 Range/Units 16:13 20:05 06:05 POC Glucose (mg/dL) 138 H 188 H 138 H (75-99) mg/dL
[2020-01-25 12:08] LABS: Glucose,Whole Blood 170 mg/dL (75-99)
--- NOTE | 2020-01-25 12:29 | P.PN ---
Subjective Progress Note Date: 01/25/20 Principal diagnosis: Acute exacerbation of chronic obstructive pulmonary disease 74-year-old male patient with advanced COPD with a baseline FEV1 of 24% of predicted, and a total lung capacity of 127% of predicted and diffusion capacity of 23% of predicted consistent with severe advanced COPD. The patient has been followed up in our office. The patient has been maintained on Trelegy Ellipta as maintenance in addition to her maintenance prednisone of 10 mg on a daily basis and oxygen 2 L/m 24 7. The patient has a portable concentrator. The patient also has known scar in the right apical area which needs to be monitored. Based on his advanced comorbidities and advanced COPD, no further workup has been done regarding this abnormal opacity/scar in the right upper lobe. Note that he has diffuse emphysema with upper lobe predominance and there is no mediastinal lymphadenopathy. His last hospitalization for COPD exacerbation was back in 2018. The patient comes into the MRSA problem because of worsening shortness of breath and increased cough and increased sputum production. His primary medical doctor wanted to come into the hospital to be evaluated. He has no fever. Has no chills. No nausea vomiting or abdominal pain. He has significant limitation of exercise capacity secondary to advanced COPD. He denies having any swelling in lower extremities. He denied having any calf pain or tenderness. A CT angios and was done in the [facility] that showed no evidence of any pulmonary embolism. There was diffuse emphysema and as for the right upper lobe opacity, this was again seen at the pleural-based lesion that has increased in size compared to the previous CAT scan from 10/23/2018. It showed some spiculation and it was measuring 2.4 x 2.4 x 2.1 cm in size. There is some scarring in the lung bases bilaterally. There is extensive edematous changes throughout the lung torres bilaterally. There is also a left breast opacity noted. The EKG was consistent with sinus tachycardia with occasional PVCs. There were T-wave inversions that would raise the possibility of an underlying anterolateral ischemia. No ST segment elevations. The patient had abnormalities and troponin with levels being 0.387 and 0.331 respectively 2. His sodium level came up 124. White cell count 11.2 with a hemoglobin of 11.0 and a platelet count of 385. On 01/19/2020 patient seen in follow-up on selective care unit, patient is resting in bed, remains on high flow oxygen currently at 6 L, his pulse ox of 93-99%, she still gets very short of breath with exertion, conversation, occasional cough, with no phlegm production. Denies chest pain, patient had e levation of his troponins, cardiology is following, and patient is scheduled for cardiac catheterization today. Echocardiogram has been taken, report is pending, patient is on 0.9 normal saline at a rate of 75 ML per hour, heparin infusion per weight-based protocol. Today's labs have been reviewed, showing low blood cell, 4.0, hemoglobin is 9.9, serum sodium has slightly improved on today's labs, and is up to 127, potassium is 5.3, chloride is 94, BUN is 19, creatinine is 0.54, [place] [id number]. His echocardiogram showed mild concentric LVH, moderate to severe impairment of his left ventricular systolic function with an EF of 30-35%, mild mitral regurg, mild tricuspid regurg. No evidence of pulmonary hypertension. The patient is seen today 01/20/2020 in follow-up on the selective care unit. He is currently resting in bed. He did have ongoing issues with desaturation. He is currently on 5 L/m per nasal cannula. Lungs sounds markedly diminished. IV Solu-Medrol was resumed. He remains on IV diuretics and bronchodilators. He did undergo cardiac catheterization yesterday that revealed calcified coronary arteries, right dominant system. Calcified LAD and multiple areas but no significant obstructive disease. Of 40% second diagonal disease noted. 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 Ejection fraction 30-35%. White count 14.0. Hemoglobin 9.9. Sodium 130. Potassium 4.8. Creatinine 0.56. The patient is seen today 01/21/2020 in follow-up on the selective care unit. He is awake and alert in no acute distress. Resting comfortably in bed. Breathing a bit easier today compared to yesterday. Chest x-ray reveals evidence of chronic obstructive pulmonary disease and mild cardiomegaly. No acute process. White count 7.3. Hemoglobin 10.6. Sodium 1:30. Potassium 4.4. Creatinine 0.60. He remains on bronchodilators, IV diuretics, IV Solu-Medrol. He did undergo a core needle biopsy of the left breast mass yesterday. Pathology pending. The patient is seen today 01/22/2020 in follow-up on the selective care unit. He is currently sitting up in a chair at the bedside. Awake and alert in no acute distress. Breathing easier today compared to yesterday. Not quite back to his baseline. Maintaining O2 saturations in the low 90s on 5 L/m per nasal cannula. He is afebrile. Slightly tachycardic. White count 8.4. Hemoglobin 10.5. Sodium 1:30. Potassium 4.9. Creatinine 0.56. Continued on DuoNeb inhalations, Symbicort, IV Solu-Medrol, IV diuretics. The patient is seen today 01/25/2020 in follow-up on the selective care unit. He is currently resting comfortably in bed. Awake and alert in no acute di stress. He is maintaining O2 saturations in the 90s on 35% Ventimask. Blood glucose 170. He remains on DuoNeb inhalations, Pulmicort and Perforomist inhalations, antibiotics in the form of ceftriaxone, IV diuretics, IV Solu- Medrol. Breast biopsy results still pending. Objective - Vital Signs Vital signs: Vital Signs Temp 98.7 F 01/25/20 08:00 Pulse 96 01/25/20 09:21 Resp 20 01/25/20 08:00 BP 137/97 01/25/20 08:00 Pulse Ox 90 L 01/25/20 08:00 Intake & Output 01/24/20 01/25/20 01/25/20 18:59 06:59 18:59 Intake Total 240 Output Total 200 780 Balance -200 -540 Weight 44 kg Intake: Oral 240 Output: Urine 200 780 Other: Voiding Method Bedside Commode Bedside Commode Urinal Urinal # Voids 2 # Bowel Movements 1 - Exam GENERAL EXAM: Alert, very pleasant, 74-year-old male patient, on 35% Ventimask, with a pulse ox of 92% comfortable in no apparent distress. HEAD: Normocephalic/atraumatic. EYES: Normal reaction of pupils, equal size. Conjunctiva pink, sclera white. NOSE: Clear with pink turbinates. THROAT: No erythema or exudates. NECK: No masses, no JVD, no thyroid enlargement, no adenopathy. CHEST: No chest wall deformity. Symmetrical expansion. Left breast firm irregular lesion, status post biopsy, and right posterior neck and upper back area firm irregular lesion LUNGS: Equal air entry with few scattered wheezes bilaterally, diminished CVS: Regular rate and rhythm, normal S1 and S2, no gallops, no murmurs, no rubs ABDOMEN: Soft, nontender. No hepatosplenomegaly, normal bowel sounds, no guarding or rigidity. EXTREMITIES: No clubbing, no edema, no cyanosis, 2+ pulses and upper and lower extremities. MUSCULOSKELETAL: Muscle strength and tone normal. SPINE: No scoliosis or deformity SKIN: No rashes CENTRAL NERVOUS SYSTEM: No focal deficits, tone is normal in all 4 extremities. PSYCHIATRIC: Alert and oriented -3. Appropriate affect. Intact judgment and insight. - Labs CBC & Chem 7: 01/24/20 06:10 01/24/20 06:10 Labs: Abnormal Lab Results - Last 24 Hours (Table) 01/24/20 01/24/20 01/25/20 Range/Units 16:13 20:05 06:05 POC Glucose (mg/dL) 138 H 188 H 138 H (75-99) mg/dL 01/25/20 Range/Units 12:07 POC Glucose (mg/dL) 170 H (75-99) mg/dL Assessment and Plan Assessment: 1 acute exacerbation of COPD, with secondary shortness of breath. 2 severe COPD, steroid-dependent and patient has been oxygen dependent and the patient has been on Trelegy Ellipta as maintenance regarding his advanced COPD. 3 acute on chronic hypoxic respiratory failure maintained on 2 L of oxygen by nasal cannula in the outpatient setting 4 cachexia with significant loss in total body muscle and fat mass and his current BMI 20.6 5 right upper lobe enlarging spiculated opacity/scar which has grown in size compared to the previous CAT scan from 2018. His ability of malignancy cannot be completely excluded in the right upper lobe. Nevertheless, this is a limited growth over the past one half years which makes me consider the possibility of an indolent or a slow-growing tumor. 6 acute non-STEMI with diffuse T-wave inversion positive troponins, cardiac catheterization performed 01/19/2020 revealed calcified coronary arteries with mild obstruction, being treated medically. 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 8 hyponatremia, hypochloremia 9 suspected a left breast mass, status post core biopsy by IR on 01/20/2020 10 cardiomyopathy, possibly ischemic, echo showed moderate to severe impairment of left ventricular systolic function and EF of 30-35%, mild MR, mild TR, no evidence of pulmonary hypertension Plan: The patient was seen and evaluated by Dr. Dolan We'll continue current treatment plan Convert to oral prednisone at discharge Plan is for palliative care, possibly hospice Discharge planning in place I, the cosigning physician, performed a history & physical examination of the patient. Lungs sounds bilateral end expiratory wheeze, diminished. Maintaining good O2 saturations in the 90s on 35% Ventimask. I discussed the assessment and plan of care with my nurse practitioner, Clarisa Hammond. I attest to the above note as dictated by her.
[2020-01-25] MEDS ORDERED: methylPREDNISolone ACETATE 80 MG/ML 1 ML VIAL IM STA (12:49)
[2020-01-25 16:53] LABS: Glucose,Whole Blood 176 mg/dL (75-99)
[2020-01-25 20:11] LABS: Glucose,Whole Blood 181 mg/dL (75-99)
--- NOTE | 2020-01-25 20:11 | P.PN ---
Subjective Progress Note Date: 01/25/20 Principal diagnosis: This is a 74 year old male who was recently admitted for significant Chronic obstructive pulmonary disease, acute exacerbation, end stage and is being closely monitored. Patient also has a right upper lobe mass along with congestive heart failure and currently remains on IV lasix along with bronchodilators and IV steroids. Patient is currently on a venti-mask as he is requiring more oxygenation and continues to be extremely dyspneic. Had a lengthy discussion with son and who are agreeable to talk with the palliative care nurse and continue palliative care at home. Family refusing rehab at this time as they would like to continue caring for patient at home. Discussed with nursing staff about weaning off venti-mask and monitoring patient closely on high flow oxygen. Will continue to closely monitor. Review of systems: Constitutional: No reports of fevers or chills cardiovascular: no reports of chest pain or palpitations Respiratory: Reports shortness of breath and cough GI: no reports of nausea, vomiting, or diarrhea : no reports of dysuria or retention Neurovascular: reports weakness, no reports of numbness Active Medications Albuterol/Ipratropium (Duoneb 0.5 Mg-3 Mg/3 Ml Soln) 3 ml INHALATION RT-Q4H PRN PRN Reason: Shortness Of Breath Or Wheezing Last Admin: 01/24/20 12:35 Dose: 3 ml Documented by: Albuterol/Ipratropium (Duoneb 0.5 Mg-3 Mg/3 Ml Soln) 3 ml INHALATION RT-QID [facility] Last Admin: 01/25/20 16:10 Dose: 3 ml Documented by: Alprazolam (Xanax) 0.25 mg PO TID PRN PRN Reason: Anxiety Ascorbic Acid (Vitamin C) 500 mg PO DAILY [facility] Last Admin: 01/25/20 09:01 Dose: 500 mg Documented by: Aspirin (Aspirin) 81 mg PO DAILY [facility] Last Admin: 01/25/20 09:01 Dose: 81 mg Documented by: Budesonide (Pulmicort) 1 mg INHALATION RT-BID [facility] Last Admin: 01/25/20 09:06 Dose: 1 mg Documented by: Cyanocobalamin (Vitamin B-12) 500 mcg PO DAILY [facility] Last Admin: 01/25/20 09:02 Dose: 500 mcg Documented by: Formoterol Fumarate (Perforomist) 20 mcg INHALATION RT-BID [facility] Last Admin: 01/25/20 08:59 Dose: 20 mcg Documented by: Furosemide (Lasix) 20 mg IV Q12HR [facility] Last Admin: 01/25/20 09:02 Dose: 20 mg Documented by: Heparin Sodium (Porcine) (Heparin) 5,000 unit SQ Q8HR [facility] Last Admin: 01/25/20 16:06 Dose: 5,000 unit Documented by: Ceftriaxone Sodium 1 gm/ (Sodium Chloride) 50 mls @ 100 mls/hr IVPB Q24HR [facility] Last Admin: 01/25/20 09:02 Dose: 100 mls/hr Documented by: Insulin Aspart (Novolog) 0 unit SQ ACHS [facility]; Protocol Last Admin: 01/25/20 18:01 Dose: 4 unit Documented by: Losartan Potassium (Cozaar) 50 mg PO HS [facility] Last Admin: 01/24/20 20:19 Dose: 50 mg Documented by: Methylprednisolone Sodium Succinate (Solu-Medrol) 60 mg IV Q6HR [facility] Last Admin: 01/25/20 18:01 Dose: 60 mg Documented by: Metoprolol Tartrate (Lopressor) 50 mg PO BID [facility] Last Admin: 01/25/20 09:02 Dose: 50 mg Documented by: Objective - Vital Signs Vital signs: Vital Signs Temp 98.1 F 01/25/20 16:00 Pulse 92 01/25/20 16:23 Resp 20 01/25/20 16:00 BP 131/75 01/25/20 16:00 Pulse Ox 93 L 01/25/20 16:00 Intake & Output 01/25/20 01/25/20 01/26/20 06:59 18:59 06:59 Intake Total 240 Output Total 780 160 Balance -540 -160 Intake: Oral 240 Output: Urine 780 160 Other: Voiding Method Bedside Commode Urinal # Voids 2 1 # Bowel Movements 1 - Exam Patient is sitting in the bed , awake alert and oriented.. Temp is 97.6F, pulse is 80, resp are 18, blood pressure is 141/63, 02 is 96 on venti-mask with FIO2 of 9 HEENT: Normocephalic. Neck is supple. Pupils reactive. Nostrils clear. Oral cavity is moist. Ears reveal no drainage. Neck reveals no JVD, carotid bruits, or thyromegaly. CHEST EXAMINATION: Trachea is central. Symmetrical expansion. Bilateral diminished air entry with scattered rhonchi and mild expiratory wheezing noted CARDIAC: Normal S1, S2 with no gallops. No murmurs ABDOMEN: Soft. Bowel sounds normal. No organomegaly. No abdominal bruits. Extremities: 2+ edema.. No clubbing or cyanosis Neurologically awake, alert, oriented x3 with well-coordinated movements. No focal deficits noted Skin: No rash or skin lesions. Psychiatric: Cooperative. Non-suicidal Musculoskeletal: No joint swelling or deformity. Normal range of motion. - Labs CBC & Chem 7: 01/24/20 06:10 01/24/20 06:10 Labs: Abnormal Lab Results - Last 24 Hours (Table) 01/24/20 01/25/20 01/25/20 Range/Units 20:05 06:05 12:07 POC Glucose (mg/dL) 188 H 138 H 170 H (75-99) mg/dL 01/25/20 Range/Units 16:52 POC Glucose (mg/dL) 176 H (75-99) mg/dL Assessment and Plan Assessment: Shortness of breath secondary to acute COPD exacerbation with acute hypoxic hypercarbic respiratory failure with possible acute purulent tracheobronchitis, end stage COPD right upper lobe mass lesion possibly Severe COPD on home oxygen and steroid-dependent Acute CHF exacerbation with systolic dysfunction ejection fraction 35 to 30% Acute non-ST elevated [place] with elevated troponin level Chronic hypoxic respiratory failure secondary to COPD , 02 dependent Right upper lobe lung mass increasing in size Left breast mass shown in the CT chest. s/p biopsy Hyponatremia Likely hypovolemic Moderate protein calorie malnutrition History of hematochromatosis Anemia of chronic disease Previous history of smoking DVT prophylaxis No CODE, no CPR, No VENT. Recommendations and discussion: Recommend to continue current medications, management, and symptomatic treatment. Patient currently remains on 9 liters with a venti-mask and discussed with nursing staff about weaning to high flow oxygen and monitor closely. Discussed with son and today about palliative care and they will proceed forward with palliative care in the home setting. Patient continues on IV lasix along with bronchodilators, and IV steroids. A dose of depo-medrol was given as well. Patient continues on IV antibiotics as well. Biopsy report still pending at this time. Case management and social work following and assisting with discharge planning needs. Due to multiple complex medical issues, prognosis is extremely guarded. Further recommendations to follow. Possible discharge in 24- 48 hours.
[2020-01-25] MEDS: LOSARTAN 50 MG TAB PO SCH (20:27)
[2020-01-26] MEDS: methylPREDNISolone SOD SUCCI 125 MG/2 ML VIAL IV SCH ×3 (00:02→12:49)
[2020-01-26] MEDS: HEPARIN SODIUM,PORCINE 5,000 UNIT/ML 1 ML VIAL SQ SCH ×2 (00:02→09:06)
[2020-01-26 06:18] LABS: Glucose,Whole Blood 136 mg/dL (75-99)
[2020-01-26] MEDS: INSULIN ASPART (NovoLOG) 100 UNIT/ML VIAL SQ SCH ×2 (06:24→12:47)
[2020-01-26 08:21] VITALS: RESP 18
[2020-01-26] MEDS: IPRATROPIUM-ALBUTEROL 3 ML NEB INHALATION SCH ×2 (08:57→12:03)
[2020-01-26] MEDS: BUDESONIDE 1 MG/2 ML NEBU INHALATION SCH (08:57)
[2020-01-26] MEDS: FORMOTEROL FUMARATE 20 MCG/2 ML NEBU INHALATION SCH (08:57)
[2020-01-26] MEDS: FUROSEMIDE 10 MG/ML 2 ML VIAL IV SCH (09:07)
[2020-01-26] MEDS: CYANOCOBALAMIN 500 MCG TAB PO SCH (09:09)
[2020-01-26] MEDS: ASPIRIN 81 MG PO SCH (09:09)
[2020-01-26] MEDS: ASCORBIC ACID 500 MG TAB PO SCH (09:09)
[2020-01-26] MEDS: METOPROLOL TARTRATE 50 MG TAB PO SCH (09:09)
[2020-01-26 12:06] VITALS: PULSE 94
[2020-01-26 12:25] LABS: Glucose,Whole Blood 177 mg/dL (75-99)
--- NOTE | 2020-01-26 12:53 | P.DS ---
Providers Date of admission: 01/18/20 14:27 Expected date of discharge: 01/26/20 Attending physician: Carlotta Mathew Consults: 01/18/20 14:27 Consult Physician Routine Consulting Provider: [facility] Consult Reason/Comments: Non-STEMI Do you want consulting provider notified?: Yes 01/18/20 16:20 Consult Physician Routine Consulting Provider: Landry Wilson Consult Reason/Comments: COPD Do you want consulting provider notified?: Yes 01/18/20 17:08 Consult Physician Routine Consulting Provider: Parag Aceves Consult Reason/Comments: Left chest mass Do you want consulting provider notified?: Yes Primary care physician: [facility] Course: Final diagnosis Shortness of breath secondary to acute COPD exacerbation with acute hypoxic hyp ercarbic respiratory failure with possible acute purulent tracheobronchitis, end stage COPD right upper lobe mass lesion possibly Severe COPD on home oxygen and steroid-dependent Acute CHF exacerbation with systolic dysfunction ejection fraction 35 to 30% Acute non-ST elevated [place] with elevated troponin level Chronic hypoxic respiratory failure secondary to COPD , 02 dependent Right upper lobe lung mass increasing in size Left breast mass shown in the CT chest. s/p biopsy Hyponatremia Likely hypovolemic Moderate protein calorie malnutrition History of hematochromatosis Anemia of chronic disease Previous history of smoking DVT prophylaxis No CODE, no CPR, No VENT. Discharge disposition Patient is being transferred in a stable condition with extremely guarded prognosis to Home with palliative care. Patient will follow-up with Dr. Hidalgo upon discharge. Patient also instructed to follow-up with Surgery Dr. Aceves in the outpatient setting For biopsy results. Patient will continue on a short course of oral antibiotics in the form of Ceftin 500 mg twice daily for the next 3 days to complete the course. Patient will also continue on bronchodilators along with inhalational steroids and a steroid taper as well. Total time taken is greater than 35 minutes. History of present illness This is an 34-year-old male who was recently admitted with Significant COPD acute exacerbation end-stage and was being closely monitored. Patient was also found to have a right upper lobe mass along with congestive heart failure. Patient was treated with IV Lasix for diuresis along with bronchodilators, IV steroids, and Antibiotics. Patient did have a breast mass biopsy which is currently still pending. Patient will follow-up with surgery in the outpatient setting for results. Patient's respiratory status continued to deteriorate requiring Venti-mask although has been transitioned back to nasal cannula And is currently on 3-4 L. Patient and family have met with palliative care and will be going home with palliative care today. Currently no reports of chest pain, worsening shortness of breath, or palpitations. Patient is afebrile. No reports of nausea or vomiting and patient is tolerating diet. Patient will be going Home with palliative care and family will discuss possible hospice in the outpatient setting. Prognosis is extremely guarded. On exam vital signs are stable. Temp is 97.5F, pulse is 94, respirations are 18, blood pressure is 148/69, oxygen saturation is 90-92% on 4 L via nasal cannula. Cardio S1, S2 are muffled. Respiratory shows diminished breath sounds at the bases with Some scattered rhonchi and expiratory wheezing noted. Abdomen is soft and nontender. Nervous system shows No focal deficits. Please refer to medication reconciliation sheet for a list of medications. Patient Condition at Discharge: Serious Plan - Discharge Summary Discharge Rx Participant: No New Discharge Prescriptions: New Aspirin 81 mg PO DAILY 30 Days #30 chew Arformoterol Tartrate [Brovana] 15 mcg INHALATION RT-BID 30 Days #60 nebu Cefuroxime Axetil [Ceftin] 500 mg PO BID 3 Days #6 tab Losartan [Cozaar] 50 mg PO HS 30 Days #30 tab Ipratropium-Albuterol Nebulize [Duoneb 0.5 mg-3 mg/3 ml Soln] 3 ml INHALATION RT-QID 30 Days #90 ml Ipratropium-Albuterol Nebulize [Duoneb 0.5 mg-3 mg/3 ml Soln] 3 ml INHALATION RT-Q4H PRN ml PRN Reason: Shortness Of Breath Or Wheezing Potassium Chloride ER [K-Dur 10] 10 meq PO DAILY 30 Days #30 tab Furosemide [Lasix] 20 mg PO DAILY 30 Days #30 tab Metoprolol Tartrate [Lopressor] 50 mg PO BID 30 Days #60 tab predniSONE 10 mg PO DIRECTED #20 tab Pantoprazole Sodium [Protonix] 40 mg PO BID 30 Days #60 tablet. Budesonide [Pulmicort] 1 mg INHALATION RT-BID 30 Days #30 ml Calcium Carbonate [Tums] 200 mg PO TID #30 chewable ALPRAZolam [Xanax] 0.25 mg PO TID PRN #12 tab PRN Reason: Anxiety Continue Ubidecarenone [Co Q-10] 100 mg PO DAILY Fluticasone/Umeclidin/Vilanter [Trelegy Ellipta 100-62.5-25] 1 puff INHALATION RT-DAILY Albuterol Nebulized [Ventolin Nebulized] 2.5 mg INHALATION RT-BID Albuterol Inhaler [Ventolin Hfa Inhaler] 2 puff INHALATION RT-QID PRN PRN Reason: Shortness Of Breath Lactose-Reduced Food [Boost Plus] 237 ml PO BID Cyanocobalamin [Vitamin B-12] 500 mcg PO DAILY Ascorbic Acid [Vitamin C] 500 mg PO DAILY Discharge Medication List Albuterol Inhaler [Ventolin Hfa Inhaler] 2 puff INHALATION RT-QID PRN 01/18/20 [History] Albuterol Nebulized [Ventolin Nebulized] 2.5 mg INHALATION RT-BID 01/18/20 [History] Ascorbic Acid [Vitamin C] 500 mg PO DAILY 01/18/20 [History] Cyanocobalamin [Vitamin B-12] 500 mcg PO DAILY 01/18/20 [History] Fluticasone/Umeclidin/Vilanter [Trelegy Ellipta 100-62.5-25] 1 puff INHALATION RT-DAILY 01/18/20 [History] Lactose-Reduced Food [Boost Plus] 237 ml PO BID 01/18/20 [History] Ubidecarenone [Co Q-10] 100 mg PO DAILY 01/18/20 [History] ALPRAZolam [Xanax] 0.25 mg PO TID PRN #12 tab 01/26/20 [Rx] Arformoterol Tartrate [Brovana] 15 mcg INHALATION RT-BID 30 Days #60 nebu 01/26/20 [Rx] Aspirin 81 mg PO DAILY 30 Days #30 chew 01/26/20 [Rx] Budesonide [Pulmicort] 1 mg INHALATION RT-BID 30 Days #30 ml 01/26/20 [Rx] Calcium Carbonate [Tums] 200 mg PO TID #30 chewable 01/26/20 [Rx] Cefuroxime Axetil [Ceftin] 500 mg PO BID 3 Days #6 tab 01/26/20 [Rx] Furosemide [Lasix] 20 mg PO DAILY 30 Days #30 tab 01/26/20 [Rx] Ipratropium-Albuterol Nebulize [Duoneb 0.5 mg-3 mg/3 ml Soln] 3 ml INHALATION RT-Q4H PRN ml 01/26/20 [Rx] Ipratropium-Albuterol Nebulize [Duoneb 0.5 mg-3 mg/3 ml Soln] 3 ml INHALATION RT-QID 30 Days #90 ml 01/26/20 [Rx] Losartan [Cozaar] 50 mg PO HS 30 Days #30 tab 01/26/20 [Rx] Metoprolol Tartrate [Lopressor] 50 mg PO BID 30 Days #60 tab 01/26/20 [Rx] Pantoprazole Sodium [Protonix] 40 mg PO BID 30 Days #60 tablet. 01/26/20 [Rx] Potassium Chloride ER [K-Dur 10] 10 meq PO DAILY 30 Days #30 tab 01/26/20 [Rx] predniSONE 10 mg PO DIRECTED #20 tab 01/26/20 [Rx] Follow up Appointment(s)/Referral(s): Parag Aceves MD [Medical Doctor] - 02/08/20 3:10 pm Gal Hidalgo DO [Primary Care Provider] - 1-2 days (office will call you with appointment) [facility] [NON-STAFF] - [facility], [NON-STAFF] - Patient Instructions/Handouts: COPD (Chronic Obstructive Pulmonary Disease) (DC), Palliative Care (DC) Activity/Diet/Wound Care/Special Instructions: Activity Limited until follow-up Continue with antibiotics until finished Follow-up with primary care provider upon discharge Continue with [facility] and palliative care Continue current diet Discharge Disposition: HOME WITH HOME HEALTH SERVICES
[2020-01-26 15:42] VITALS: BP 118/68; TEMP 97.3
--- NOTE | 2020-01-31 13:16 | CDI ---
Documentation Clarification Form Date: 01/31/2020 01:01:34 PM From: Kathy Joyner Phone: If you have a question about this query, please contact Amanda Lester Photo Equipment Technician at [phone] between 8am and 5pm. Admit Date: 01/18/2020 02:27:00 PM Patient Name: Glen Saucedo Visit Number: [id number] Discharge Date: 01/26/2020 04:00:00 PM ATTENTION: The Clinical Documentation Specialists (CDI) and [facility] Coding Staff appreciate your assistance in clarifying documentation. Please respond to the clarification below the line at the bottom and electronically sign. The CDI & [facility] Coding staff will review the response and follow-up if needed. Please note: Queries are made part of the Legal Health Record. If you have any questions, please contact the author of this message via ITS. Dr. Stephanie Kelley Patient with documented RUL mass and Left breast mass. 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 Please clarify the clinical significance of this path report result. Clinical Indicators: Radiology: RUL mass and Left breast mass Please clarify the clinical significance of the positive for malignancy path report. Carcinoma of RUL lung metastatic LT breast cancer Other, please specify ____ Unable to determine Behavior Malignant, primary site Malignant, secondary site Benign In situ Of uncertain behavior Other, please specify Unable to determine metastatic LT breast cancer MTDD
== END 2020-01-26 16:00 | disposition home health service (06) | DRG 280 ==
LOC: EC 10:51 → 3SCARD 14:27
PROVIDERS: ADMIT Internal Medicine; ATTEND Internal Medicine
PROC: B2111ZZ Fluoroscopy of Multiple Coronary Arteries using Low Osmolar Contrast (ICD-10-PCS; principal; 2020-01-19 11:15)
PROC: 4A023N7 Measurement of Cardiac Sampling and Pressure, Left Heart, Percutaneous Approach (ICD-10-PCS; principal; 2020-01-19 11:15)
PROC: 0HBU3ZX Excision of Left Breast, Percutaneous Approach, Diagnostic (ICD-10-PCS; 2020-01-20)
DX: I21.4 Non-ST elevation (NSTEMI) myocardial infarction (principal); I50.23 Acute on chronic systolic (congestive) heart failure; J96.21 Acute and chronic respiratory failure with hypoxia; J96.22 Acute and chronic respiratory failure with hypercapnia; F10.239 Alcohol dependence with withdrawal, unspecified; E44.0 Moderate protein-calorie malnutrition; E87.1 Hypo-osmolality and hyponatremia; J84.9 Interstitial pulmonary disease, unspecified; J98.11 Atelectasis; R64 Cachexia; C34.11 Malignant neoplasm of upper lobe, right bronchus or lung; C79.81 Secondary malignant neoplasm of breast; I25.10 Atherosclerotic heart disease of native coronary artery without angina pectoris; J20.9 Acute bronchitis, unspecified; Z87.891 Personal history of nicotine dependence; I25.84 Coronary atherosclerosis due to calcified coronary lesion; I49.3 Ventricular premature depolarization; D63.8 Anemia in other chronic diseases classified elsewhere; Z68.20 Body mass index [BMI] 20.0-20.9, adult; E86.1 Hypovolemia; Z51.5 Encounter for palliative care; Z20.828 Contact with and (suspected) exposure to other viral communicable diseases; Z66 Do not resuscitate; E87.8 Other disorders of electrolyte and fluid balance, not elsewhere classified; I08.1 Rheumatic disorders of both mitral and tricuspid valves; I71.9 Aortic aneurysm of unspecified site, without rupture; J43.9 Emphysema, unspecified; Z79.52 Long term (current) use of systemic steroids; Z99.81 Dependence on supplemental oxygen; Z81.8 Family history of other mental and behavioral disorders; Z82.0 Family history of epilepsy and other diseases of the nervous system; Z90.49 Acquired absence of other specified parts of digestive tract; E83.119 Hemochromatosis, unspecified; R00.0 Tachycardia, unspecified; R91.8 Other nonspecific abnormal finding of lung field; Z79.899 Other long term (current) drug therapy
CPT/HCPCS: 36415; 71045; 71046; 71275; 74230; 80048; 80053; 83605; 83735; 83880; 84484; 85025; 85379; 85610; 85730; 88305; 88341; 88342; 93005; 93306; 93308; 93458; 94640; 94760; 96374; 96375; 99291